=== PATIENT | male | born 1945 | race Caucasian/White ===

== ENCOUNTER → 2016-03-30 | Outpatient (CLI) | payer BC ==
[~2016-03-30] MED LIST: ASCO10003 PO; ATOR-22 PO; BNC/4025 PO; CANA1TAB PO; ERGO1CAP41 PO; EXEN1INJ3 SQ; INSDGIPEN SC; INSU1INJ2 SQ; MULT-506 PO; NVLG SQ; benicar PO
[2016-03-30 09:42] LABS: HEMATOCRIT 44.4 % (42-52); MEAN CELL VOLUME 87.1 fL (80-100); MEAN CORPUSCULAR HEMOGLOBIN 29.8 pg (25-34); MEAN CORPUSCULAR HGB CONC 34.2 g/dl (32-36); PLATELET COUNT 177 K/uL (130-400); WHITE BLOOD COUNT 6.05 K/uL (4.8-10.8)
[2016-03-30 09:52] LABS: URINE APPEARANCE CLEAR (CLEAR); URINE BILIRUBIN NEG (NEG); URINE COLOR YELLOW; URINE EPITHELIAL CELL AUTO 0-5 /lpf (0-5); URINE NITRITE NEG (NEG); URINE PH 5.5 (4.5-7.5); URINE SPECIFIC GRAVITY 1.022 (1.000-1.030); UROBILINOGEN NEG (NEG)
[2016-03-30 09:55] LABS: BLOOD UREA NITROGEN 25 mg/dl (7-18); BUN/CREATININE RATIO 17.6 (10-20); CALCIUM 9.4 mg/dl (8.5-10.1); CARBON DIOXIDE 26 mmol/L (21-32); CHLORIDE 104 mmol/L (98-107); GLUCOSE 119 mg/dl (70-99); PHOSPHORUS 2.9 mg/dl (2.5-4.9); POTASSIUM 4.3 mmol/L (3.5-5.1); SODIUM 139 mmol/L (136-145)
[2016-03-30 09:58] LABS: CHOLESTEROL/HDL RATIO 2.8
[2016-03-30 10:00] LABS: MANUAL MICROSCOPIC REQUIRED? NO; REVIEW REQ? NO
[2016-03-30 10:03] LABS: ESTIMATED AVERAGE GLUCOSE 146 mg/dl; HA1C FLAG Normal (Normal)
[2016-03-30 10:12] LABS: URINE PROTIEN/CREAT RATIO 0.1 (0-0.2); URINE TOTAL PROTEIN 11.1 mg/dl (0-11.9)
== END | disposition home or self-care (01) ==
LOC: C.LAB 08:18
PROVIDERS: ATTEND Family Medicine
DX: E11.22 Type 2 diabetes mellitus with diabetic chronic kidney disease (principal); N18.3 Chronic kidney disease, stage 3 (moderate); I12.9 Hypertensive chronic kidney disease with stage 1 through stage 4 chronic kidney disease, or unspecified chronic kidney disease; E55.9 Vitamin D deficiency, unspecified

== ENCOUNTER → 2016-07-26 | Outpatient (CLI) | payer BC ==
[~2016-07-26] MED LIST changes: -ERGO1CAP41 PO; +ERGO500011 PO
[2016-07-26 09:55] LABS: ALT/SGPT 34 U/L (12-78); AST/SGOT 25 U/L (15-37)
[2016-07-26 12:28] LABS: BASO % 0.2 %; BASO ABS # 0.01 K/uL (0-0.2); COMPLETE YES; EOS % 3.4 %; HEMATOCRIT 46.2 % (42-52); IG% 0.2 %; LYMPH % 13.6 %; LYMPH ABS # 0.84 K/uL (1.2-3.4); MEAN CELL VOLUME 90.9 fL (80-100); MEAN CORPUSCULAR HEMOGLOBIN 30.1 pg (25-34); MEAN CORPUSCULAR HGB CONC 33.1 g/dl (32-36); MEAN PLATELET VOLUME 10.1 fL (7.4-10.4); MONO % 9.2 %; NEUT % 73.4 %; PLATELET COUNT 192 K/uL (130-400); RED BLOOD COUNT 5.08 M/uL (4.7-6.1); WHITE BLOOD COUNT 6.18 K/uL (4.8-10.8)
[2016-07-26 12:42] LABS: URINE APPEARANCE CLEAR (CLEAR); URINE BILIRUBIN NEG (NEG); URINE COLOR YELLOW; URINE EPITHELIAL CELL AUTO 0-5 /lpf (0-5); URINE NITRITE NEG (NEG); URINE SPECIFIC GRAVITY 1.024 (1.000-1.030); UROBILINOGEN NEG (NEG)
[2016-07-26 12:49] LABS: MANUAL MICROSCOPIC REQUIRED? NO; REVIEW REQ? NO
[2016-07-26 13:10] LABS: URINE PROTIEN/CREAT RATIO 0.1 (0-0.2); URINE TOTAL PROTEIN 7.9 mg/dl (0-11.9)
[2016-07-26 13:38] LABS: BLOOD UREA NITROGEN 30 mg/dl (7-18); BUN/CREATININE RATIO 21.3 (10-20); CALCIUM 9.2 mg/dl (8.5-10.1); CARBON DIOXIDE 22 mmol/L (21-32); CHLORIDE 106 mmol/L (98-107); GLUCOSE 77 mg/dl (70-99); SODIUM 140 mmol/L (136-145)
[2016-07-26 13:39] LABS: PHOSPHORUS 3.2 mg/dl (2.5-4.9)
--- NOTE | 2016-08-02 06:23 | CODING QUERY MEDICAL NECESSITY ---
SUPPORTING DIAGNOSIS NEEDED A supporting diagnosis is required for the test/procedure performed on this patient in order for us to be reimbursed by the patient's insurance. Please provide a supporting diagnosis for the following test/procedure listed below next to the test name along with your signature. *If there is no additional diagnosis for this patient that would support the following test/procedure please document that below next to the test/procedure. Test(s)/Procedure(s) that require a supporting diagnosis: * VITAMIN D, 25-HYDROXY DIAGNOSIS: Provider Signature: Date: Thank you Heidi Saenz [employer] Once completed, please kindly fax back to [phone] For questions please call [phone]
== END | disposition home or self-care (01) ==
LOC: C.LAB 07:56
PROVIDERS: ATTEND Urology
DX: E11.9 Type 2 diabetes mellitus without complications (principal); R97.20 Elevated prostate specific antigen [PSA]

== ENCOUNTER → 2016-08-10 | Outpatient (CLI) | payer BC ==
[~2016-08-10] MED LIST changes: +ERGO1CAP41 PO; -ERGO500011 PO
[2016-08-10 09:49] LABS: ESTIMATED AVERAGE GLUCOSE 137 mg/dl; HA1C FLAG Normal (Normal)
== END | disposition home or self-care (01) ==
LOC: C.LAB 07:46
PROVIDERS: ATTEND Family Medicine
DX: E11.9 Type 2 diabetes mellitus without complications (principal)

== ENCOUNTER → 2016-10-27 | Outpatient (CLI) | payer BC ==
[~2016-10-27] MED LIST changes: -benicar PO
[2016-10-27 09:35] LABS: MEAN CELL VOLUME 92.3 fL (80-100); MEAN CORPUSCULAR HEMOGLOBIN 29.7 pg (25-34); MEAN CORPUSCULAR HGB CONC 32.1 g/dl (32-36); MEAN PLATELET VOLUME 9.8 fL (7.4-10.4); PLATELET COUNT 218 K/uL (130-400); RED BLOOD COUNT 5.09 M/uL (4.7-6.1); WHITE BLOOD COUNT 6.38 K/uL (4.8-10.8)
[2016-10-27 09:52] LABS: BLOOD UREA NITROGEN 23 mg/dl (7-18); BUN/CREATININE RATIO 15.4 (10-20); CALCIUM 9.3 mg/dl (8.5-10.1); CARBON DIOXIDE 32 mmol/L (21-32); CHLORIDE 103 mmol/L (98-107); GLUCOSE 62 mg/dl (70-99); PHOSPHORUS 2.7 mg/dl (2.5-4.9); POTASSIUM 4.2 mmol/L (3.5-5.1); SODIUM 138 mmol/L (136-145)
[2016-10-27 10:05] LABS: URINE APPEARANCE CLEAR (CLEAR); URINE BILIRUBIN NEG (NEG); URINE COLOR YELLOW; URINE EPITHELIAL CELL AUTO 0-5 /lpf (0-5); URINE NITRITE NEG (NEG); URINE PH 5.5 (4.5-7.5); URINE SPECIFIC GRAVITY 1.022 (1.000-1.030); UROBILINOGEN NEG (NEG)
[2016-10-27 10:13] LABS: REVIEW REQ? NO
[2016-10-27 10:14] LABS: MANUAL MICROSCOPIC REQUIRED? NO
[2016-10-27 10:22] LABS: URINE PROTIEN/CREAT RATIO 0.1 (0-0.2); URINE TOTAL PROTEIN 13.1 mg/dl (0-11.9)
== END | disposition home or self-care (01) ==
LOC: C.LAB 08:14
PROVIDERS: ATTEND Internal Medicine Nephrology
DX: I12.9 Hypertensive chronic kidney disease with stage 1 through stage 4 chronic kidney disease, or unspecified chronic kidney disease (principal); N18.2 Chronic kidney disease, stage 2 (mild); E11.22 Type 2 diabetes mellitus with diabetic chronic kidney disease; E55.9 Vitamin D deficiency, unspecified

== ENCOUNTER 2016-11-07 05:34 | Observation (INO) | payer BC, OTHER ==
[2016-10-25 09:45] VITALS: BMI 37.0
[2016-10-25 10:30] LABS: BASO % 0.5 %; BASO ABS # 0.03 K/uL (0-0.2); COMPLETE YES; EOS % 5.3 %; HEMATOCRIT 43.8 % (42-52); IG% 0.4 %; LYMPH ABS # 1.01 K/uL (1.2-3.4); MEAN CELL VOLUME 90.7 fL (80-100); MEAN CORPUSCULAR HEMOGLOBIN 31.3 pg (25-34); MEAN CORPUSCULAR HGB CONC 34.5 g/dl (32-36); MEAN PLATELET VOLUME 10.2 fL (7.4-10.4); MONO % 9.1 %; NEUT % 66.7 %; PLATELET COUNT 188 K/uL (130-400); RED BLOOD COUNT 4.83 M/uL (4.7-6.1); URINE APPEARANCE CLEAR (CLEAR); URINE BILIRUBIN NEG (NEG); URINE COLOR YELLOW; URINE NITRITE NEG (NEG); URINE PH 5.5 (4.5-7.5); URINE SPECIFIC GRAVITY 1.021 (1.000-1.030); UROBILINOGEN NEG (NEG); WHITE BLOOD COUNT 5.61 K/uL (4.8-10.8)
--- NOTE | 2016-10-25 10:31 | PAT Medication Instructions ---
Service Date Oct 25, 2016. Current Home Medication List Ascorbic Acid (Vitamin C), 1 TAB PO QAM Atorvastatin (Lipitor), 20 MG PO QAM Canagliflozin (Invokana), 1 TAB PO QAM Ergocalciferol (Vitamin D 50567 Unit), 1 TAB PO MONTHLY Exenatide (Bydureon), 1 DOSE SQ WK Insulin Aspart (Novolog Penfill), 12 UNITS SQ QAM Insulin Aspart (Novolog), 20 UNITS SQ noon Insulin Aspart (Novolog Penfill), 20 UNITS SQ QPM Insulin Glargine (Lantus Solostar), 80 UNITS SC QPM Multivitamin (Multivitamin), 1 TAB PO QAM Olmesartan/Hctz (Benicar Hct 40/25), 1 TAB PO QAM Medication Instructions For Your Scheduled Surgery - Hold the following medications the morning of surgery: Ascorbic Acid (Vitamin C), 1 TAB PO QAM Multivitamin (Multivitamin), 1 TAB PO QAM Olmesartan/Hctz (Benicar Hct 40/25), 1 TAB PO QAM Canagliflozin (Invokana), 1 TAB PO QAM Insulin Aspart (Novolog Penfill), 12 UNITS SQ QAM Insulin Aspart (Novolog), 20 UNITS SQ noon - Take the following medications the morning of surgery with a sip of water OTHERWISE NOTHING TO EAT OR DRINK AFTER MIDNIGHT: Atorvastatin (Lipitor), 20 MG PO QAM - Take the following medications as scheduled the night before surgery: Insulin Glargine (Lantus Solostar), 80 UNITS SC QPM Insulin Aspart (Novolog Penfill), 20 UNITS SQ QPM If you have any questions please call us at [phone] or [phone] or [phone]
[2016-10-25 10:33] LABS: MANUAL MICROSCOPIC REQUIRED? NO; REVIEW REQ? NO
[2016-10-25 10:39] LABS: INR 1.1 (0.9-1.1); PARTIAL THROMBOPLASTIN RATIO 1.2; PROTHROMBIN TIME (PATIENT) 11.4 SECONDS (9.0-12.0)
--- NOTE | 2016-10-25 10:56 | DIAGNOSTIC IMAGING REPORT ---
CHEST 2 VIEWS ROUTINE CLINICAL HISTORY: Preoperative chest COMPARISON STUDY: No previous studies for comparison. FINDINGS: The cardiac and mediastinal contours are normal. There is no evidence of focal pulmonary consolidation. There is no evidence of failure. No pleural effusions are visualized.[ IMPRESSION: No active disease in the chest. Electronically signed by: Rashard Moon M.D. 10/25/2016 10:55 AM Dictated Date/Time: 10/25/2016 10:55 AM
[2016-10-25 11:13] LABS: BUN/CREATININE RATIO 13.6 (10-20); CALCIUM 9.8 mg/dl (8.5-10.1); CREATININE 1.4 mg/dl (0.60-1.40); POTASSIUM 4.5 mmol/L (3.5-5.1)
--- NOTE | 2016-11-04 12:39 | HISTORY & PHYSICAL EXAMINATION ---
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 HISTORY OF PRESENT ILLNESS: Yemi is a 71-year-old male who complains of weakness in his upper extremities. 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 It is progressively getting worse. He has seen other spine surgery in the past including Dr. Ashraf and his PA. They said that he had a collapse cervical disc at C5 and C6. They recommended surgery for him. They said it would be fairly straight forward case. He is here actually for a second opinion. He was sent here by his PCP Dr. Irving Gonzales. We are here to evaluate him. PAST MEDICAL HISTORY: Positive for diabetes, heart disease, high blood pressure, kidney disease. PAST SURGICAL HISTORY: Appendectomy, 2 repaired broken legs, tonsillectomy. ALLERGIES: No known drug allergies. CURRENT MEDICATION LIST: Includes Benicar, Invokana, Lantus, and Bydureon. FAMILY MEDICAL HISTORY: Positive for heart disease, stroke, diabetes. Negative for cancer, blood clots, DVTs, PEs. SOCIAL HISTORY: He is . Never drinks. No tobacco use. Active lifestyle. REVIEW OF SYSTEMS: NEUROLOGICAL: Positive for numbness. MUSCULOSKELETAL: Positive for muscle pain. ENDOCRINE: Positive for diabetes. PHYSICAL EXAMINATION: CONSTITUTIONAL: His height is 5'5, weight 231 pounds. APPEARANCE: He is alert and oriented x3. RESPIRATORY: Equal and bilateral breath sounds. CARDIOVASCULAR: Brisk capillary refill in distal extremities. Normal S1, S2, no S3 auscultated. NEUROLOGICAL: Sensation is intact to touch. Neurovascularly intact. He does have some weakness in his right biceps compared to his left. He has diminished strength in his right marketing administrative assistant strength compared to his left. He did have appropriate reflexes bilaterally. They were symmetric. INTEGUMENTARY: No skin rashes, no swelling, no zoster infection. MUSCULOSKELETAL: Physical examination of the cervical spine shows he has good flexion and extension. No pain with palpation over the midline of the cervical spine. Negative Spurling's maneuver. No atrophy of the musculature of the upper extremities noted. DIAGNOSTIC TESTS: X-rays plain films taken do demonstrate significant spondylitic changes. We did review his MRI. It shows significant disc height collapse at C6 and C7 level of the cervical spine. There is some degenerative osteoporotic formation on the anterior as well as posterior vertebral bodies. The posterior osteophyte is actually causing some cord impingement at that level. There is some other discogenic degeneration at other levels such as C3 and C4. ASSESSMENT DIAGNOSES: 1. Cervical spondylolysis. 2. Degenerative disc disease at C6-7 level. PLAN: At this time, we are going to preop him for ACDF surgery at 2 levels. There will also be a corpectomy and fusion at the C5-C6 and C6-C7 cervical spine levels. We will use iliac bone crest graft as well. This should hopefully correct his kyphosis. So the formal operation will be corpectomy and fusion at C5-C6 of the cervical spine, possibly C6-C7 as well. We will be using iliac crest bone grafting. We will also be using anterior plate fixation. We discussed the surgery, the risks and benefits. He is in full concurment. We did provide him with an [place] cervical collar today in the office. He is to bring that with him the day of surgery. Anticipated stay 1-2 days at [facility]. We will follow him up 2 weeks postop suture removal and evaluation.
[~2016-11-07] VITALS: Ht 165.1 cm; Wt 102.7 kg
[2016-11-07] VITALS (17 sets, daily range): BP systolic 126–161; BP diastolic 75–90; PULSE 78–106; TEMP 36.2–37.3; O2SAT 93–98; Ht 165.1 cm; Wt 102.7 kg
[2016-11-07] MEDS ORDERED: LACTATED RINGER'S 1000ML 500 ML IV ONE (06:00)
[2016-11-07] MEDS ORDERED: NSS 1000ML IV SCH (06:00)
[2016-11-07] MEDS ORDERED: CEFAZOLIN 2000 MG/60 ML D5W 60 ML IV SCH (06:00)
[2016-11-07] MEDS ORDERED: GLYCOPYRROLATE INJ 0.2 MG/ML VIAL ONE (06:33)
[2016-11-07] MEDS ORDERED: PHENYLEPHRINE HCL INJ 10 MG/ML VIAL ONE (06:33)
[2016-11-07] MEDS ORDERED: SUCCINYLCHOLINE CHLORIDE 20 MG/ML 10 ML VIAL IV ONE (06:33)
[2016-11-07] MEDS ORDERED: NEOSTIGMINE METHYLSULFATE 5 MG/5 ML SYR ONE (06:33)
[2016-11-07] MEDS ORDERED: ONDANSETRON INJ 2 MG/ML 2 ML VIAL ONE (06:33)
[2016-11-07] MEDS ORDERED: LIDOCAINE HCL 2% 2 ML VIAL (20MG/ML) ONE (06:33)
[2016-11-07] MEDS ORDERED: MIDAZOLAM HCL 1 MG/ML 2ML VIAL ONE (06:33)
[2016-11-07] MEDS ORDERED: PROPOFOL IV EMULSION 10 MG/ML 20 ML VIAL IV ONE (06:33)
[2016-11-07] MEDS ORDERED: ROCURONIUM BROMIDE 10 MG/ML 5 ML VIAL IV ONE ×2 (06:33→08:35)
[2016-11-07] MEDS ORDERED: EpHEDrine SULFATE INJ 50 MG/ML AMP ONE (06:33)
[2016-11-07] MEDS ORDERED: FENTANYL CITRATE INJ 50 MCG/1 ML 2 ML VIAL ONE ×2 (06:33→09:31)
[2016-11-07] MEDS ORDERED: DEXAMETHASONE SOD INJ 4 MG/ML VIAL ONE (06:33)
[2016-11-07] MEDS ORDERED: THROMBIN FOR SOLN 20000 UNIT KIT ONE (07:03)
[2016-11-07] MEDS ORDERED: BUPIVACAINE/EPINEPHRINE 0.5% MPF 1:200,000 30 ML VIAL ONE ×2 (07:03→07:04)
[2016-11-07] MEDS ORDERED: GELATIN SPONGE SZ 100 ONE (07:03)
[2016-11-07] MEDS ORDERED: BACITRACIN 50000 UNIT VIAL ONE (07:04)
--- NOTE | 2016-11-07 07:23 | History & Physical Bridge Note ---
H&P Re-Evaluation Bridge Note: I have examined the patient, reviewed the History & Physical and in the interval since the performance of the History & Physical I have noted the following changes of clinical significance: No changes noted
[2016-11-07] MEDS ORDERED: NURSING VERBAL MED ORDER ONE ×2 (07:30→07:45)
[2016-11-07] MEDS ORDERED: ALBUT/IPRATROP 3MG/0.5MG NEB 3 ML VIAL INH STA (07:33)
[2016-11-07] MEDS ORDERED: ATROPINE SULFATE 0.1 MG/ML 5ML SYR IV PRN (09:30)
[2016-11-07] MEDS ORDERED: ONDANSETRON INJ 2 MG/ML 2 ML VIAL IV PRN ×2 (09:30→10:15)
--- NOTE | 2016-11-07 09:55 | DIAGNOSTIC IMAGING REPORT ---
Cervical SPINE, INTRAOPERATIVE FLUOROSCOPY HISTORY: C5-C6 corpectomy. FLUOROSCOPY TIME: 9 seconds. FINDINGS: Intraoperative fluoroscopy was provided for the cervical spine. 3 fluoroscopic spot images were obtained. Anterior cervical discectomy and fusion at C5-C6. The hardware appears intact. IMPRESSION: Fluoroscopy provided for a C5-C6 ACDF. Electronically signed by: Chano Valadez M.D. 11/07/2016 9:54 AM Dictated Date/Time: 11/07/2016 9:53 AM
--- NOTE | 2016-11-07 10:03 | [facility] Post Operative Brief Note ---
Immediate Operative Summary Operative Date Nov 07, 2016. Pre-Operative Diagnosis Cervical spondylolysis, degenerative disc disease at C6-C7 level Post-Operative Diagnosis Cervical spondylolysis, degenerative disc disease at C6-C7 level Procedure(s) Performed C5-C6 Anterior Cervical Discectomy and Fusion; C5-C6 Corpectomy with Left Iliac Crest Bone Graft Surgeon Dr. Rene Nunn Clerk Specialist Surgeon(s) Jhon Davis PA-C Estimated Blood Loss 50 mL Findings cord compression Specimens No pathology specimens per surgeon Complication(s) None Disposition Recovery Room / PACU
[2016-11-07] MEDS ORDERED: OXYCODONE HCL IR 5 MG TAB (IMMEDIATE RELEASE) PO PRN (10:15)
[2016-11-07] MEDS ORDERED: LORAZEPAM INJ 0.5 MG in SYRINGE 0.75 ML IV PRN (10:15)
[2016-11-07] MEDS ORDERED: HYDROmorphone INJ 0.5 MG/0.5 ML SYR IV PRN (10:15)
[2016-11-07] MEDS ORDERED: NALOXONE HCL 0.4 MG/1 ML VIAL/CARP IV PRN (10:15)
[2016-11-07] MEDS ORDERED: MAGNESIUM HYDROXIDE SUSP 30 ML UDC PO PRN (10:15)
[2016-11-07] MEDS ORDERED: RACEPINEPHRINE 2.25% NEBU SOLN 0.5 ML VIAL INH PRN (10:15)
[2016-11-07] MEDS ORDERED: DEXAMETHASONE INJ 8 MG in SYRINGE 0 ML IV PRN (10:15)
[2016-11-07] MEDS: HYDROmorphone INJ 2 MG/ML SYR/VIAL IV PRN ×4 (10:31→10:46)
--- NOTE | 2016-11-07 11:09 | OPERATIVE REPORT ---
DATE OF OPERATION: 11/07/2016 PREOPERATIVE DIAGNOSIS: Kyphosis and spinal cord compression, C5-C6 cervical spine. POSTOPERATIVE DIAGNOSIS: Kyphosis and spinal cord compression, C5-C6 cervical spine. PROCEDURE: Included anterior cervical approach, Ross-Biggs approach to the cervical spine, a corpectomy taking off approximately half of the vertebrae of 5 and half of the vertebrae of 6, decompression of the spinal cord, iliac crest structural autograft, anterior plate fixation C5-C6 cervical. SURGEON: Rene Nunn DO DIRECTOR MUSEUM OR ZOO: Jhon Davis PA-C. COMPLICATIONS: No apparent complications. TOTAL BLOOD LOSS: Less than 50 mL. ANESTHETIC: General intubated. DESCRIPTION OF PROCEDURE: The patient was taken to the operating room and general intubated anesthetic provided to the patient. Mar catheter administered. Antibiotics provided to the patient, placed supine on the operative table, prepped and draped sterile. A formal timeout was obtained intake. We made a transverse skin incision over C5-C6 interval dissecting the soft tissue in the same plane. We came down on the C5-C6 area. We did a discectomy. It was interesting in that there really was no disc remaining. There was a small amount of disc particles of the interval, but that was about all, it was actually quite unstable. We used the bur up 4 to 5 mm down, 4 to 5 mm of the vertebrae. We did a formal decompression and discectomy using curettes, pituitaries and [place] rongeurs. I was pleased with the decompression. We also completed the foraminotomies. We irrigated and waited. We went to the left iliac crest, made a skin incision and fascial incision. It was fairly difficult because of the moderate obesity of the patient, was able to harvest an excellent autograft. It measured 10 superior to inferior measured approximately 14 mm across and approximately 15 mm in depth. This was countersunk and the corpectomy area at C5-C6 giving him excellent stability. We then put a plate on the anterior aspect of the cervical spine. 18-20 mm in length but the [employer] locked proximally and distally. The fit was anatomic. We irrigated and closed over a [place] drain in layers. The iliac irrigated and closed as well. Sterile dressings applied. The collar applied. The patient is extubated to PACU stable. No apparent interoperative complications. Sponge and needle count correct at the close. I attest to the content of the Intraoperative Record and any orders documented therein. Any exception s are noted below.
[2016-11-07] MEDS ORDERED: IV FLUIDS COMPLETED PRN (11:45)
--- NOTE | 2016-11-07 11:55 | Anesthesiology Progress Note ---
Anesthesia Post Op Note Date & Time Nov 07, 2016 at 11:55 Vital Signs Pain Intensity: 2 Vital Signs Past 12 Hours Date Time Temp Pulse Resp B/P (MAP) Pulse Ox O2 Delivery O2 Flow Rate FiO2 11/07/16 11:40 88 15 146/84 99 Nasal Cannula 4 11/07/16 11:25 86 20 148/89 100 Nasal Cannula 4 11/07/16 11:15 85 18 156/87 100 Nasal Cannula 4 11/07/16 11:05 36.8 85 18 156/86 100 Nasal Cannula 4 11/07/16 10:55 81 16 147/78 100 Nasal Cannula 4 11/07/16 10:45 79 14 144/78 99 Nasal Cannula 4 11/07/16 10:35 78 14 143/90 100 Nasal Cannula 4 11/07/16 10:26 83 20 146/81 100 Oxymask 10 11/07/16 10:16 79 19 144/90 100 Oxymask 10 11/07/16 10:11 36.1 86 18 133/77 99 Oxymask 10 11/07/16 06:00 36.3 85 20 145/89 97 Room Air Notes Mental Status: alert / awake / arousable, participated in evaluation Pt Amnestic to Procedure: Yes Nausea / Vomiting: adequately controlled Pain: adequately controlled Airway Patency, RR, SpO2: stable & adequate BP & HR: stable & adequate Hydration State: stable & adequate Anesthetic Complications: no major complications apparent
[2016-11-07] MEDS ORDERED: HydrALAZINE HCL 20 MG/ML VIAL IV PRN (12:15)
[2016-11-07] MEDS ORDERED: GLUCOSE 40% GEL 15 GM TUBE PO PRN (12:30)
[2016-11-07] MEDS ORDERED: GLUCAGON FOR INJ 1 MG VIAL SQ PRN (12:30)
[2016-11-07] MEDS ORDERED: HYDROmorphone INJ 1 MG/ML SYR IV PRN (12:30)
[2016-11-07] MEDS ORDERED: DEXTROSE 50% 50 ML SYR IV PRN (12:30)
[2016-11-07] MEDS ORDERED: GLUCOSE 10 TABS/TUBE PO PRN (12:30)
[2016-11-07] MEDS: SODIUM CHLORIDE 0.9% 1000ML 1,000 ML IV SCH ×2 (13:33→23:16)
[2016-11-07] MEDS: DEXAMETHASONE INJ 6 MG in SYRINGE 0 ML IV SCH ×2 (13:46→21:36)
[2016-11-07] MEDS: CEFAZOLIN IV 1,000 MG in DEXTROSE 5% 50ML 50 ML IV SCH ×2 (16:17→23:28)
[2016-11-07] MEDS: INSULIN ASPART 100 UNITS/ML 3 ML PEN SC SCH ×2 (18:01→21:33)
[2016-11-07] MEDS ORDERED: LANTUS PER UNIT CHARGE SC SCH (21:00)
[2016-11-07] MEDS ORDERED: INSULIN GLARGINE SOLOSTAR 100 UNITS/ML 3 ML PEN SC SCH (21:00)
[2016-11-07] MEDS ORDERED: INSULIN ASPART 100 UNITS/ML 3 ML PEN SQ SCH (21:00)
--- NOTE | 2016-11-07 21:06 | CONSULTATION REPORT ---
DATE OF CONSULTATION: 11/07/2016 REASON FOR MEDICAL CONSULTATION: Hypertensive and diabetic management in the perioperative period after anterior cervical discectomy and fusion at C5 through C7 by Dr. Nunn. HISTORY OF PRESENT ILLNESS: The patient was seen in his room in a postoperative state. He had a rigid C-collar in place. He had a bandage on his anterior neck with a little bit of serosanguineous stain on it. The patient was awake and alert. He said his right arm paresthetic feelings have resolved almost spontaneously postoperatively. The patient did already self. One half dose Lantus this morning and he has been n.p.o. since last evening. He has no other complaints or problems. He is doing quite well. He states that his outpatient physician was going to reduce his antihypertensives from the Benicar 40/25 mg to just Benicar 40 mg and he will plan on doing that when he returns home. PAST MEDICAL HISTORY: For insulin requiring diabetes, hypertension, chronic kidney disease stage III, previous appendectomy, previous leg fractures, previous tonsillectomy. MEDICATIONS: Insulin aspartate 12 units in the morning, 20 units at lunch, 20 units at dinner. Lantus 80 units in the p.m., Benicar HCT 40/25 mg daily, vitamin D daily, multivite once a day, exenatide 2 mg once a week, Invokana 100 mg a day, Lipitor 20 mg a day, and ascorbic acid 1000 a day. FAMILY HISTORY: Positive for heart disease, stroke, and diabetes. REVIEW OF SYSTEMS: Ten systems were reviewed and are negative unless listed in the surgeon's H&P including arm pain, now he has some anterior neck pain postoperatively. PHYSICAL EXAMINATION: GENERAL: He is a pleasant gentleman. He is in no distress with the exception of having something to eat and drink. He is in a rigid C-collar VITAL SIGNS: Temperature 36.8, pulse 88, respirations 15, blood pressure 146/84, O2 saturations 99% on 4 liters. HEENT: PERRL, EOMI. NEUROLOGICAL: He is awake, alert, and appropriate. Cranial nerves II-XII are intact. He has equal symmetrical technology intern strength and intrinsic hand muscle strength and he has good shoulder girdle strength. HEART: Regular without murmurs, clicks, rubs, or gallops. LUNGS: Clear without wheezes or crackles. Good air movement. ABDOMEN: With hypoactive bowel sounds, soft, nontender, nondistended. LOWER EXTREMITIES: Without cyanosis, clubbing, or edema. SKIN: Without lesions, growths, bruises, or bleeding. LABORATORY DATA: Preoperatively showed BUN and creatinine of 19 and 1.4. Glucoses have been less than 142. Hemoglobin and hematocrit preoperatively is 15 and 43. ASSESSMENT: This is a 71-year-old insulin requiring diabetic male who is status post anterior cervical discectomy and fusion. PLAN: 1. For the patient's diabetes, we will make his Lantus 40 b.i.d. We will put him on a sliding scale and hold his standard insulin dosing. We will continue on his Invokana. 2. For his hypertension, we will maintain his Benicar with hydralazine backup. 3. For his dyslipidemia or secondary risk prevention, we will maintain his Lipitor 20 mg. 4. DVT prevention is mechanical means at this time due to the cervical spine surgery. KIA
[2016-11-07] MEDS: DOCUSATE SODIUM 100 MG CAP PO SCH (21:28)
[2016-11-07] MEDS: INSULIN GLARGINE SOLOSTAR 100 UNITS/ML 3 ML PEN SC SCH (21:32)
[2016-11-08] VITALS (14 sets, daily range): BP systolic 126–165; BP diastolic 76–93; PULSE 86–103; TEMP 36.5–37.3; O2SAT 92–96
[2016-11-08] MEDS: DEXAMETHASONE INJ 6 MG in SYRINGE 0 ML IV SCH (06:32)
[2016-11-08] MEDS ORDERED: TAMSULOSIN HCL 0.4 MG CAP PO ONE (07:15)
--- NOTE | 2016-11-08 07:16 | Discharge Instructions ---
Discharge Instructions Date of Service Nov 08, 2016. Admission Reason for Admission: spinal cord compression Discharge Discharge Diagnosis / Problem: same Discharge Goals Goal(s): Improve function Activity Recommendations Activity Limitations: as noted below Lifting Limitations: until after follow-up appointment Exercise/Sports Limitations: until after follow-up appointment May Resume Sexual Activity: after follow-up appointment Shower/Bathe: keep incision dry home, take it easy . Instructions / Follow-Up Instructions / Follow-Up MEDICATIONS: Please take your prescriptions as instructed at your pre-op appointment. SPECIAL CARE: The following information is intended to answer some of the common questions and concerns regarding your surgery. Each patient is an individual and receives individual counselling throughout the course of treatment, from diagnosis to surgery all the way through recovery. What follows is not an exhaustive list, but should be a useful guide to some of the common questions and concerns patients have regarding their surgeries. These are not provided to keep you from calling us; rather, they give you something accurate and concrete to reference as you recover from your procedure. If you need us, we are available to you. As always, if you are not sure about something, call us at [phone]. MEDICAL EMERGENCIES: For these conditions, call 911 or go to your local hospital-based Emergency Department - not [facility] or equivalent. * Paralysis * Severe chest pain or difficulty breathing * Swelling or redness of either leg Spine procedures can be rather complex and though complications are rare, they do occur. In such cases, effective advice regarding emergency situations cannot always be addressed over the telephone. You may be referred to the emergency department for more effective management of your problem. Activity Limitations: It is important to give your body time to heal, so please limit your activities : * In general, don't do anything that moves your spine too much. You should avoid contact sports, twisting or heavy lifting while you recover. * 5-10 pounds is all you should attempt to lift. * You should not plan on driving for approximately 3 weeks and you should avoid traveling more than 30-45 minutes at a time. Longer trips should be broken down with walking breaks spaced appropriately. * Physical therapy is not usually required. * Walking and good posture practices will help you recover and regain your function. * Avoid straining or sudden changes in position. * In general, the goal is to take it easy and recover. Don't cause any new problems. Just relax. Showers: * Do not take a bath, use a Jacuzzi or hot tub or otherwise submerge your incision. * It is usually safe to take a shower 4-5 days after your surgery. * Your incision does not require any special creams or ointments. * Simply clean it with soap and water, dry and re-dress with a clean bandage afterwards. Incision: * Keep incision clean, dry and protected until your first follow-up appointment. * Some amount of drainage and redness is normal. Any drainage should be fairly clear and not have a foul odor. * If you feel anything is wrong or you have excessive drainage, please call us. * Your stitches and bill will be removed 10-14 days after your surgery. At the time of your first post-op visit. * Neck surgeries are typically closed with a suture underneath the skin. The steri-strips over the incision should be maintained until we see you in the office. Bracing: * You may be provided with a back or neck brace to encourage good posture and prevent injury. It will remind you not to do too much as you heal and will alert others to the fact that you have had a surgery. * Back braces may be removed for showers and when you are resting at home. They must be worn when you are walking around for any period of time or for travel. * For neck surgery, you will likely be provided with two cervical collars. The soft collar ([place] or foam rubber) is worn most commonly throughout the day and while sleeping. The plastic collar (provided at the hospital) is for showering/bathing. * Except while eating, collars should remain in place. More specifically, bracing is provided for a purpose and should be worn. * Please obtain your brace or collars prior to your operation and bring them to the hospital with you on the day of surgery. * You should also bring your collars to your post-op appointment with Dr. Nunn. You should always take good care of your body and practice healthy habits, especially following surgery. You should: * Follow your doctor's treatment plan * Sit and stand properly with good posture (ears over shoulders, shoulders over hips) Don't slouch * Learn to lift correctly * Exercise regularly (low-impact aerobic exercise is especially good, but check with your doctor first) * Generally, be up and walking for 5-10 minutes at a time at least 3-4 times per day from the day you get home * Increasing walking to tolerance until you can walk for 20-30 minutes at a time * Attain and maintain a healthy body weight * Eat healthy foods ( a well-balanced, low-fat diet rich in fruits and vegetables) and get enough calcium * Avoid excessive use of alcohol When to call our office - If you notice any of the following: * Increased pain not relieve by pain medicine * Fevers greater then 100 degrees F, chills or flu symptoms * Increased redness around incision * Drainage from the incision that is not clear * Any foul smelling drainage * Swelling or fluid collection beneath the skin Miscellaneous: * In the hospital, you may be given a walker or cane for support while walking. These are temporary needs and are intended to prevent injuries due to falls. You may discontinue them when you feel strong and steady enough on your feet. * Sleep in a comfortable position. We find that many patients find a lounge chair or recliner with several pillows to be beneficial in the early post-operative period. * The support stockings should be used for 7-10 days and may be discontinued when you are back to walking more and conducting usual household activities. No problem is insignificant. We are here to help you and get you well. Contact us at [phone]. Definitions: Foraminotomy: If part of the disc or a bone spur (osteophyte) is pressing on a nerve as it leaves the vertebra (through an exit called the foramen), a foraminotomy may be done. Otomy means "to make an opening." A foraminotomy is making the opening of the foramen larger, so the nerve can exit without being compressed. Laminotomy: Similar to the foraminotomy, a laminotomy makes a larger opening, this time in your bony plate protecting your spinal canal and spinal cord (the lamina). The lamina may be pressing on your nerve, so the surgeon may make more room for the nerves using a laminotomy. Laminectomy: Sometimes, a laminotomy is not sufficient. The surgeon may need to remove all or part of the lamina. This procedure is called a laminectomy. This can often be done at many levels without any harmful effects. Current Hospital Diet Patient's current hospital diet: Diabetes Type 2 Diet, Full Liquid Diet Discharge Diet Recommended Diet: Diabetes Type 2 Diet Procedures Procedures Performed: C5-C6 Anterior Cervical Discectomy and Fusion; C5-C6 Corpectomy with Left Iliac Crest Bone Graft Pending Studies Studies pending at discharge: no Laboratory Results Hemoglobin A1c Test 11/08/16 06:13 Range/Units Medical Emergencies . Who to Call and When: Medical Emergencies: If at any time you feel your situation is an emergency, please call 911 immediately. . Non-Emergent Contact Non-Emergency issues call your: Surgeon . "Provider Documentation" section prepared by Rene Nunn. . VTE Core Measure Inpt VTE Proph given/why not?: Treatment not indicated
[2016-11-08] MEDS: CEFAZOLIN IV 1,000 MG in DEXTROSE 5% 50ML 50 ML IV SCH (07:32)
[2016-11-08] MEDS: DOCUSATE SODIUM 100 MG CAP PO SCH (08:11)
[2016-11-08] MEDS: INSULIN ASPART 100 UNITS/ML 3 ML PEN SC SCH ×2 (08:20→12:45)
[2016-11-08] MEDS: INSULIN GLARGINE SOLOSTAR 100 UNITS/ML 3 ML PEN SC SCH (08:21)
--- NOTE | 2016-11-08 08:29 | DISCHARGE SUMMARY ---
He is improved. He is stable. He is alert, oriented this morning. He is having trouble voiding. He has no chest pain, shortness of breath. He is afebrile. Blood pressure is stable. No distention. ASSESSMENT: Status post major spinal cord surgery for corpectomy cervical spine, C5-C6. He also had an iliac crest graft. DISPOSITION: Will get him up and ambulatory today, which he has done. I placed him back on his Flomax; hopefully that will help his urinary output. Tentatively discharged home later on today in improved stable condition. He has prescriptions and orders and recommendations.
[2016-11-08] MEDS ORDERED: ATORVASTATIN 20 MG TAB PO SCH (09:00)
[2016-11-08] MEDS ORDERED: HYDROCHLOROTHIAZIDE 25 MG TAB PO SCH (09:00)
[2016-11-08] MEDS ORDERED: NON-FORMULARY MEDICATION (Olmesartan/Hctz (Benicar Hct 40/25) 1 TAB) PO SCH (09:00)
[2016-11-08] MEDS ORDERED: MULTIVITAMIN TAB PO SCH (09:00)
[2016-11-08] MEDS ORDERED: INSULIN ASPART 100 UNITS/ML 3 ML PEN SQ SCH (09:00)
[2016-11-08] MEDS ORDERED: ASCORBIC ACID 500 MG TAB PO SCH (09:00)
[2016-11-08] MEDS ORDERED: OLMESARTAN MEDOXOMIL 40 MG TAB PO SCH (09:00)
[2016-11-09] MEDS ORDERED: BISACODYL 10 MG SUPP PR PRN (06:00)
[2016-11-09] MEDS ORDERED: BISACODYL 5 MG TABEC PO PRN (06:00)
== END 2016-11-08 17:25 | disposition home or self-care (01) ==
LOC: C.ACU 05:34 → C.3E 10:07 → ENRESERV 11:27
PROVIDERS: ADMIT Orthopaedic Surgery Orthopaedic Surgery of the Spine; ATTEND Orthopaedic Surgery Orthopaedic Surgery of the Spine
DX: M40.209 Unspecified kyphosis, site unspecified (principal); M43.02 Spondylolysis, cervical region; M50.323 Other cervical disc degeneration at C6-C7 level; E11.9 Type 2 diabetes mellitus without complications; N18.3 Chronic kidney disease, stage 3 (moderate); I12.9 Hypertensive chronic kidney disease with stage 1 through stage 4 chronic kidney disease, or unspecified chronic kidney disease; E66.9 Obesity, unspecified; Z90.89 Acquired absence of other organs; Z79.4 Long term (current) use of insulin; Z79.899 Other long term (current) drug therapy; Z83.3 Family history of diabetes mellitus; Z82.3 Family history of stroke; Z82.49 Family history of ischemic heart disease and other diseases of the circulatory system

== ENCOUNTER → 2016-12-05 | Outpatient (CLI) | payer BC ==
[~2016-12-05] MED LIST changes: -ERGO1CAP41 PO; +ERGO500011 PO
[2016-12-05 09:52] LABS: HEMATOCRIT 44.8 % (42-52); MEAN CELL VOLUME 92.8 fL (80-100); MEAN CORPUSCULAR HEMOGLOBIN 30.6 pg (25-34); MEAN PLATELET VOLUME 9.8 fL (7.4-10.4); PLATELET COUNT 176 K/uL (130-400); RED BLOOD COUNT 4.83 M/uL (4.7-6.1); WHITE BLOOD COUNT 6.32 K/uL (4.8-10.8)
[2016-12-05 09:53] LABS: URINE APPEARANCE CLEAR (CLEAR); URINE BILIRUBIN NEG (NEG); URINE COLOR YELLOW; URINE EPITHELIAL CELL AUTO 0-5 /lpf (0-5); URINE NITRITE NEG (NEG); URINE PH 5.5 (4.5-7.5); URINE SPECIFIC GRAVITY 1.024 (1.000-1.030); UROBILINOGEN NEG (NEG)
[2016-12-05 09:59] LABS: MANUAL MICROSCOPIC REQUIRED? NO; REVIEW REQ? NO
[2016-12-05 10:11] LABS: BLOOD UREA NITROGEN 20 mg/dl (7-18); BUN/CREATININE RATIO 15.8 (10-20); CALCIUM 9.3 mg/dl (8.5-10.1); CARBON DIOXIDE 28 mmol/L (21-32); CHLORIDE 105 mmol/L (98-107); CREATININE 1.29 mg/dl (0.60-1.40); GLUCOSE 51 mg/dl (70-99); PHOSPHORUS 2.5 mg/dl (2.5-4.9); POTASSIUM 4.1 mmol/L (3.5-5.1); SODIUM 139 mmol/L (136-145)
[2016-12-05 10:44] LABS: URINE PROTIEN/CREAT RATIO 0.1 (0-0.2); URINE TOTAL PROTEIN 8.3 mg/dl (0-11.9)
== END | disposition home or self-care (01) ==
LOC: C.LAB 07:27
PROVIDERS: ATTEND Internal Medicine Nephrology
DX: I12.9 Hypertensive chronic kidney disease with stage 1 through stage 4 chronic kidney disease, or unspecified chronic kidney disease (principal); N18.2 Chronic kidney disease, stage 2 (mild); N40.0 Benign prostatic hyperplasia without lower urinary tract symptoms; E55.9 Vitamin D deficiency, unspecified

== ENCOUNTER → 2016-12-19 | Outpatient (CLI) | payer BC, OTHER ==
[~2016-12-19] MED LIST changes: +GADAVIST IV PRN
--- NOTE | 2016-12-19 10:52 | DIAGNOSTIC IMAGING REPORT ---
PROSTATE MRI COMBO CLINICAL HISTORY: 71 years-old Male presenting with R97.20 PSA elevation. PSA 4.3 ng/mL. TECHNIQUE: Multisequence, multiplanar MR imaging of the prostate was performed before and after the administration of intravenous contrast. Additional postprocessing was performed on a separate [employer] workstation by the radiologist for 3-D volumetric segmentation of the prostate and contouring of region(s) of interest (ALYSA) for targeting. IV contrast: 10 cc of Gadavist. COMPARISON: None. FINDINGS: Prostate: The prostate measures 6.3 cm (SetgoaCAD prostate boundary segmentation volume 113 mL). Moderate changes of benign prostatic hyperplasia. Precontrast T1 weighted imaging demonstrates no evidence of intrinsic T1 hyperintensity to suggest hemorrhage. Seminal vesicles normal. No suspicious lesion is apparent in the transition or peripheral zones. Bladder: Normal. Bowel: Visualized portion of the rectum normal. Peritoneum: No free fluid in the pelvis. Lymph nodes: No lymphadenopathy in the visualized portion of the pelvis. Vasculature: Iliac vessels patent. Osseous structures: Normal bone marrow signal intensity. Miscellaneous: Small multiseptated cystic structure adjacent to the right iliopsoas muscle which measures 1.7 cm. This may represent a ganglion cyst versus a paralabral cyst. IMPRESSION: 1. No suspicious lesions. 2. Benign prostatic hyperplasia. Electronically signed by: Chano Valadez M.D. 12/19/2016 10:51 AM Dictated Date/Time: 12/19/2016 10:46 AM
== END | disposition home or self-care (01) ==
LOC: C.MRIBC 08:44
PROVIDERS: ATTEND Urology
DX: R97.20 Elevated prostate specific antigen [PSA] (principal)

== ENCOUNTER → 2017-01-31 | Outpatient (CLI) | payer BC ==
[~2017-01-31] MED LIST changes: -GADAVIST IV PRN
[2017-01-31 10:13] LABS: BLOOD UREA NITROGEN 23 mg/dl (7-18); BUN/CREATININE RATIO 16.3 (10-20); CREATININE 1.43 mg/dl (0.60-1.40)
== END | disposition home or self-care (01) ==
LOC: C.LAB 08:52
PROVIDERS: ATTEND Urology
DX: R97.20 Elevated prostate specific antigen [PSA] (principal)

== ENCOUNTER → 2017-02-08 | Outpatient (CLI) | payer BC | END | disposition home or self-care (01) | LOC: C.LAB 10:16 | PROVIDERS: ATTEND Urology | DX: R97.20 Elevated prostate specific antigen [PSA] (principal) ==

== ENCOUNTER → 2017-03-27 | Outpatient (CLI) | payer BC ==
[2017-03-27 10:28] LABS: HEMATOCRIT 44.5 % (42-52); HEMOGLOBIN 15.3 g/dL (14.0-18.0); MEAN CELL VOLUME 87.9 fL (80-100); MEAN CORPUSCULAR HEMOGLOBIN 30.2 pg (25-34); MEAN CORPUSCULAR HGB CONC 34.4 g/dl (32-36); PLATELET COUNT 163 K/uL (130-400)
[2017-03-27 10:33] LABS: HEMOGLOBIN A1C 5.7 % (4.5-5.6)
[2017-03-27 10:46] LABS: ALT/SGPT 33 U/L (12-78); AST/SGOT 18 U/L (15-37); BLOOD UREA NITROGEN 22 mg/dl (7-18); CALCIUM 8.8 mg/dl (8.5-10.1); CARBON DIOXIDE 23 mmol/L (21-32); CREATININE 1.31 mg/dl (0.60-1.40); GLUCOSE 75 mg/dl (70-99); SODIUM 137 mmol/L (136-145)
[2017-03-27 10:55] LABS: BLOOD UREA NITROGEN 22 mg/dl (7-18)
[2017-03-27 10:57] LABS: CHOLESTEROL 116 mg/dl (0-200); LDL CHOLESTEROL CALCULATED 29 mg/dl; PHOSPHORUS 3.1 mg/dl (2.5-4.9)
== END | disposition home or self-care (01) ==
LOC: C.LAB 08:53
PROVIDERS: ATTEND Urology
DX: E11.9 Type 2 diabetes mellitus without complications (principal); I10 Essential (primary) hypertension; N18.3 Chronic kidney disease, stage 3 (moderate); E78.2 Mixed hyperlipidemia; E04.1 Nontoxic single thyroid nodule

== ENCOUNTER → 2017-04-10 | Outpatient (CLI) | payer BC ==
[2017-04-10 09:32] LABS: HEMATOCRIT 45.3 % (42-52); HEMOGLOBIN 15.7 g/dL (14.0-18.0); MEAN CELL VOLUME 87.6 fL (80-100); MEAN CORPUSCULAR HEMOGLOBIN 30.4 pg (25-34); MEAN CORPUSCULAR HGB CONC 34.7 g/dl (32-36); MEAN PLATELET VOLUME 9.5 fL (7.4-10.4); PLATELET COUNT 183 K/uL (130-400); RED CELL DISTRIBUTION WIDTH CV 13.7 % (11.5-14.5); RED CELL DISTRIBUTION WIDTH SD 43.5 fL (36.4-46.3); WHITE BLOOD COUNT 6.07 K/uL (4.8-10.8)
[2017-04-10 10:20] LABS: ALBUMIN 3.7 gm/dl (3.4-5.0); BLOOD UREA NITROGEN 17 mg/dl (7-18); CALCIUM 9.5 mg/dl (8.5-10.1); CARBON DIOXIDE 26 mmol/L (21-32); CREATININE 1.28 mg/dl (0.60-1.40); GLUCOSE 86 mg/dl (70-99); PHOSPHORUS 3.1 mg/dl (2.5-4.9); POTASSIUM 4.2 mmol/L (3.5-5.1); SODIUM 137 mmol/L (136-145)
== END | disposition home or self-care (01) ==
LOC: C.LAB 08:29
PROVIDERS: ATTEND Internal Medicine Nephrology
DX: N18.2 Chronic kidney disease, stage 2 (mild) (principal); I12.9 Hypertensive chronic kidney disease with stage 1 through stage 4 chronic kidney disease, or unspecified chronic kidney disease; E55.9 Vitamin D deficiency, unspecified

== ENCOUNTER 2021-01-15 00:33 | Observation (INO) ==
[2021-01-15] MEDS ORDERED: DEXTROSE 50% 50 ML SYRINGE IV STA (03:52)
[2021-01-15 03:59] LABS: Basophils # (auto) 0.02 K/uL (0-0.2); Basophils % (auto) 0.3 %; Eosinophils # (auto) 0.24 K/uL (0-0.5); Eosinophils % (auto) 4.2 %; Hematocrit (blood only) 45.6 % (42-52); Hemoglobin 15.3 g/dL (14.0-18.0); Immature Granulocytes # (auto) 0.01 K/uL (0.00-0.02); Immature Granulocytes % (auto) 0.2 %; Lymphocytes # (auto) 1.48 K/uL (1.2-3.4); Lymphocytes % (auto) 25.6 %; Mean Corpuscular Hemoglobin 31.2 pg (25-34); Mean Corpuscular Hgb Conc 33.6 g/dL (32-36); Mean Corpuscular Volume 92.9 fL (80-100); Mean Platelet Volume 10.3 fL (7.4-10.4); Monocytes # (auto) 0.49 K/uL (0.11-0.59); Monocytes % (auto) 8.5 %; Neutrophils # (auto) 3.53 K/uL (1.4-6.5); Neutrophils % (auto) 61.2 %; Platelet Count 181 K/uL (130-400); RDW Coefficient of Variation 13.9 % (11.5-14.5); RDW Standard Deviation 46.8 fL (36.4-46.3); Red Blood Count 4.91 M/uL (4.7-6.1); White Blood Count 5.77 K/uL (4.8-10.8)
[2021-01-15 04:13] LABS: Alanine Aminotransferase 31 (12-78); Albumin Level 3.6 gm/dl (3.4-5.0); Aspartate Aminotransferase 19 U/L (15-37); BUN Creatinine Ratio 19.4 (10-20); Blood Urea Nitrogen 24 mg/dl (7-18); Calcium 9.7 mg/dl (8.5-10.1); Carbon Dioxide 29 mmol/L (21-32); Chloride 106 mmol/L (98-107); Est GFR (Non-African American) 56.1 ml/min; Glucose 108 mg/dl (70-99); Potassium 3.9 mmol/L (3.5-5.1); Sodium 139 mmol/L (136-145)
[2021-01-15 04:16] LABS: Alkaline Phosphatase 81 U/L (45-117); Bilirubin,Total 0.5 mg/dl (0.2-1); Globulin 3.7 gm/dl (2.5-4.0); Total Protein 7.3 gm/dl (6.4-8.2)
[2021-01-15] MEDS ORDERED: ACETAMINOPHEN 325 MG TAB PO PRN (07:45)
[2021-01-15] MEDS ORDERED: NITROGLYCERIN SL 0.4 MG/TAB TAB SL PRN (07:45)
[2021-01-15] MEDS ORDERED: D5W AND NSS 1,000 ML IV SCH (07:45)
[2021-01-15] MEDS: ASCORBIC ACID 500 MG TAB PO SCH (09:33)
[2021-01-15] MEDS: FINASTERIDE 5 MG TAB PO SCH (09:33)
[2021-01-15] MEDS: ASPIRIN 81 MG ECTAB PO SCH (09:33)
[2021-01-15] MEDS: ATORVASTATIN 40 MG TAB PO SCH (09:33)
[2021-01-15] MEDS: LOSARTAN POTASSIUM 50 MG TAB PO SCH (09:33)
[2021-01-15] MEDS: MULTIVITAMIN TAB PO SCH (09:34)
[2021-01-15] MEDS: INSULIN ASPART PER UNIT SC SCH ×4 (09:43→21:00)
--- NOTE | 2021-01-15 10:02 | History and Physical Report ---
DATE OF ADMISSION: 01/15/2021 CHIEF COMPLAINT: Accidental overdose of insulin. HISTORY OF PRESENT ILLNESS: A 75-year-old male with past medical history significant for type 2 diabetes, hyperlipidemia, chronic kidney disease stage III, hypertension, obesity, BPH, presented with accidental overdose of insulin. The patient is on NovoLog 12 units with breakfast, 20 units with lunch and 22 units with supper and on Lantus 56 units before going to sleep. Accidentally instead of Lantus, he took NovoLog 56 units and when he was going to sleep, he remembered it and he came to the hospital. His sugars were in 55; even after orange juice and making him eat, they were still in the 50s, so he was given an amp of D50. Currently, his sugars are 122. The patient says generally with hypoglycemia, he feels weird, but today he has no symptoms, no dizziness, no shakiness, no palpitations. Currently, resting comfortably and hemodynamically stable. Denies any headache. No blurred visions, no earache, no runny nose, no sore throat, no cough, no fevers, no nausea, no chest pain, no shortness of breath, no abdominal pain. Normal bowel and bladder movements. ALLERGIES: No known drug allergies. PAST MEDICAL HISTORY: As mentioned above. PAST SURGICAL HISTORY: Colonoscopy, C5-C6 fixation with cord decompression, bilateral lasering of secondary cataract, appendectomy, tonsillectomy, adenoidectomy, revision of the ankle joint bilaterally, revision of scrotum, umbilical hernia repair. MEDICATIONS: The patient is on ascorbic acid 1 gram p.o. daily, aspirin 81 mg p.o. daily, atorvastatin 40 mg p.o. daily, Invokana 100 mg p.o. a.m., Trulicity 0.75 mg subcutaneously weekly, vitamin D 1250 mcg p.o. monthly, finasteride 5 mg p.o. daily, NovoLog 12 units subcutaneously a.m., 20 units subcutaneously at lunch and 22 units subcutaneously p.m., Lantus 56 units subcutaneously p.m., losartan 50 mg p.o. daily, metronidazole topical p.r.n., multivitamin 1 tablet p.o. daily, Flomax 0.4 mg p.o. at bedtime. FAMILY HISTORY: Significant for father had diabetes, paternal grandfather of [place]. SOCIAL HISTORY: Lives alone. No smoking. Alcohol rarely. No drug use. REVIEW OF SYSTEMS: As per HPI. Rest of the review of systems is negative. PHYSICAL EXAMINATION: GENERAL: The patient is obese, not in acute distress. VITAL SIGNS: Temperature 36.5, pulse 105, respirations are 19, blood pressure 156/68, oxygen 95% on room air. HEENT: Pupils equal, round and reactive to light. Oral mucosa moist. NECK: No JVD, no neck masses. CARDIOVASCULAR: S1 and S2 heard. Regular rate and rhythm. No murmur, no gallop. RESPIRATORY SYSTEM: Normal AP diameter. No accessory muscle use. No wheezing, no crackles. ABDOMEN: Soft, bowel sounds present, nontender, no distention. CENTRAL NERVOUS SYSTEM: Cranial nerves II-XII grossly intact, nonfocal. EXTREMITIES: No edema, no erythema. LABORATORY DATA: WBC 5.7, hemoglobin 15.3, hematocrit 45.6, platelets 181. Sodium 139, potassium 3.9, chloride 106, bicarbonate 29, BUN 24, creatinine 1.2, serum glucose 108, calcium 9.7, total bilirubin 0.5, AST 19, ALT 31, alkaline phosphatase 81. SARS-CoV-2 negative. ASSESSMENT AND PLAN: A 75-year-old male who presents with accidental overdose of insulin. 1. Accidental overdose of insulin: He was hypoglycemic, asymptomatic. In the Emergency Room, given an ampule of dextrose. We will place him on D5 normal saline at 100 mL per hour. Hold his home insulin, place on sliding scale. Follow the blood sugars. When his sugars start going high, he may be discharged to continue his home insulin regimen. Closely monitor in the med-telemetry. Check blood sugars q.2 hours for now. 2. Hypertension: Continue his losartan. 3. Hyperlipidemia: Continue statin. 4. Benign prostatic hypertrophy: Continue finasteride and Flomax. 5. Deep venous thrombosis prophylaxis: Sequential compression devices for now. DISPOSITION: Observation in the med-tele. PT/OT prior to discharge. Social service to help with discharge plan. Level 1, full code. Job ID: [id number] [facility]
--- NOTE | 2021-01-15 17:42 | Communication Note ---
Date of Service: January 15, 2021 75 years old with diabetes on insulin was admitted with hypoglycemic episode following wrongly administered short-acting insulin instead of long-acting. He remained stable and the blood sugar has been maintaining since admission. Full progress note will follow tomorrow. DR Tashi Workman
[2021-01-15] MEDS ORDERED: TAMSULOSIN HCL 0.4 MG CAP PO SCH (21:00)
[2021-01-15] MEDS ORDERED: ALUMINUM/MAGNESIUM/SIMETH (MAALOX MAX) 30 ML UDC PO PRN (23:48)
[2021-01-16 07:00] LABS: Basophils # (auto) 0.03 K/uL (0-0.2); Basophils % (auto) 0.5 %; Eosinophils # (auto) 0.31 K/uL (0-0.5); Eosinophils % (auto) 5.1 %; Hematocrit (blood only) 46.4 % (42-52); Hemoglobin 15.4 g/dL (14.0-18.0); Immature Granulocytes # (auto) 0.01 K/uL (0.00-0.02); Immature Granulocytes % (auto) 0.2 %; Lymphocytes # (auto) 1.27 K/uL (1.2-3.4); Mean Corpuscular Hgb Conc 33.2 g/dL (32-36); Mean Corpuscular Volume 93.4 fL (80-100); Mean Platelet Volume 10.3 fL (7.4-10.4); Monocytes # (auto) 0.61 K/uL (0.11-0.59); Monocytes % (auto) 10.1 %; Neutrophils # (auto) 3.83 K/uL (1.4-6.5); Neutrophils % (auto) 63.1 %; Platelet Count 186 K/uL (130-400); RDW Standard Deviation 47.3 fL (36.4-46.3); Red Blood Count 4.97 M/uL (4.7-6.1); White Blood Count 6.06 K/uL (4.8-10.8)
[2021-01-16 07:30] LABS: BUN Creatinine Ratio 17.2 (10-20); Calcium 9.2 mg/dl (8.5-10.1); Creatinine Clr Calc Pharmacy 59.8 ml/min; Est GFR (African American) 65.7 ml/min; Est GFR (Non-African American) 56.7 ml/min; Magnesium 2.1 mg/dl (1.8-2.4); Potassium 4.3 mmol/L (3.5-5.1)
[2021-01-16] MEDS: INSULIN ASPART PER UNIT SC SCH ×2 (08:15→12:39)
[2021-01-16] MEDS: ATORVASTATIN 40 MG TAB PO SCH (08:16)
[2021-01-16] MEDS: LOSARTAN POTASSIUM 50 MG TAB PO SCH (08:16)
[2021-01-16] MEDS: ASPIRIN 81 MG ECTAB PO SCH (08:16)
[2021-01-16] MEDS: FINASTERIDE 5 MG TAB PO SCH (08:17)
[2021-01-16] MEDS: MULTIVITAMIN TAB PO SCH (08:17)
[2021-01-16] MEDS: ASCORBIC ACID 500 MG TAB PO SCH (08:17)
[2021-01-16 09:06] LABS: Estimated Average Glucose 111 mg/dl; Hemoglobin A1C 5.5 % (4.5-5.6)
--- NOTE | 2021-01-16 11:37 | Hospitalist Progress Note ---
Date of Service January 16, 2021 Assessment & Plan (1) Insulin adverse reaction: Plan: Took short acting insulin instead of usual Lantus at night He was feeling weird in the morning and came to the emergency room when his blood sugar was noted to be in 55 range Has been feeling much better since admission and didn't have any more hypoglycemic episode in the hospital Denies any symptoms as of this morning and will be sent home this afternoon (2) Diabetes mellitus: Plan: Diabetes on insulin He takes NovoLog insulin 12 units before breakfast, 20 units before lunch and 22 units before supper He uses Lantus 56 unit at bedtime He has an educator who works with him all the time He will keep in touch with his educator on Monday No adjustment of his insulin was met during this admission (3) Hypertension: Plan: Blood pressure is controlled (4) Obesity: Plan: Advised to lose weight through regular exercise and diet Plan: Will be discharged home this afternoon Admission and Anticipated Discharge Date Admission Date: January 15, 2021 Subjective 01/16/2021 The patient was seen and examined in telemetry unit He has been feeling much better and denies any symptoms His blood sugar has been running normal since admission He'll be discharged home this afternoon Review of Systems Review of Systems: All systems reviewed and are unremarkable except as noted below Physical Exam Physical Exam: Sitting on a chair without any acute distress Constitutional: well developed, well nourished and + obese; not ill appearing Eyes: PERRL, conjunctivae normal, anicteric sclerae ENMT: external ear and nose normal, oropharynx normal Neck: trachea midline, no thyromegaly Respiratory: no respiratory distress Auscultation: lungs clear to auscultation bilaterally; no crackles Cardiovascular: Rate/Rhythm: regular rate and regular rhythm; not tachycardic Heart Sounds: normal S1 and normal S2; no murmur Extremities: + edema (Trace to 1+ edema bilaterally) Gastrointestinal (Abdomen): Inspection/Auscultation: normal bowel sounds; abdomen not distended Percussion/Palpation: abdomen soft; abdomen nontender Musculoskeletal: No acute arthritis in any joint Neurologic: Alert, awake and oriented x3. No focal sensory no motor deficit appreciated Lymphatic: no cervical or axillary lymphadenopathy Results & Data Results & Data ([facility]) Vital Signs (Past 12 Hours) Vital Signs Temp Pulse Pulse Resp BP Pulse Ox 01/16/21 07:16 71 01/16/21 06:31 36.5 C 71 17 165/91 H 93 01/16/21 03:19 36.4 C L 68 18 153/84 H 94 Laboratory Results Short CBC 01/16/21 Range/Units 05:38 WBC 6.06 (4.8-10.8) K/uL Hgb 15.4 (14.0-18.0) g/dL Hct 46.4 (42-52) % Plt Count 186 (130-400) K/uL BMP 01/16/21 05:38 Sodium 137 Potassium 4.3 Chloride 104 Carbon Dioxide 27 BUN 21 H Creatinine 1.23 Glucose 109 H Calcium 9.2 Medications Administered Current Inpatient Medications Acetaminophen (Acetaminophen 325 Mg Tab) 650 mg PO Q4H PRN PRN Reason: Pain or Fever Stop: 02/14/21 07:44 Al Hydrox/Mg Hydrox/Simethicone (Aluminum/Magnesium/Simeth (Maalox Max) 30 Ml Udc) 30 ml PO Q6H PRN PRN Reason: Heartburn Stop: 02/14/21 23:47 Last Admin: 01/16/21 00:35 Dose: 30 ml Documented by: Ascorbic Acid (Ascorbic Acid 500 Mg Tab) 1,000 mg PO DAILY RAJIV Stop: 02/14/21 08:59 Last Admin: 01/16/21 08:17 Dose: 1,000 mg Documented by: Aspirin (Aspirin 81 Mg Ectab) 81 mg PO DAILY RAJIV Stop: 02/14/21 08:59 Last Admin: 01/16/21 08:16 Dose: 81 mg Documented by: Atorvastatin Calcium (Atorvastatin 40 Mg Tab) 40 mg PO DAILY RAJIV Stop: 02/14/21 08:59 Last Admin: 01/16/21 08:16 Dose: 40 mg Documented by: Ergocalciferol (Ergocalciferol 50,000 Units 1250 Mcg Cap) 50,000 units PO Q28D@0900 [facility] Stop: 02/19/21 08:59 Finasteride (Finasteride 5 Mg Tab) 5 mg PO DAILY RAJIV Stop: 02/14/21 08:59 Last Admin: 01/16/21 08:17 Dose: 5 mg Documented by: Insulin Aspart (Insulin Aspart Per Unit) 0 units SC ACHS RAJIV Stop: 02/14/21 07:44 Last Admin: 01/16/21 08:15 Dose: Not Given Documented by: Losartan Potassium (Losartan Potassium 50 Mg Tab) 50 mg PO DAILY [facility] Stop: 02/14/21 08:59 Last Admin: 01/16/21 08:16 Dose: 50 mg Documented by: Miscellaneous (Metronidazole 0.75 % Cream ~ Order Awaiting Action) 1 ea N/A QS [facility] Stop: 02/14/21 07:59 Last Admin: 01/16/21 07:32 Dose: Not Given Documented by: Multivitamins (Multivitamin Tab) 1 tab PO DAILY [facility] Stop: 02/14/21 08:59 Last Admin: 01/16/21 08:17 Dose: 1 tab Documented by: Nitroglycerin (Nitroglycerin Sl 0.4 Mg/Tab Tab) 0.4 mg SL UD PRN PRN Reason: Chest Pain Stop: 02/14/21 07:44 Tamsulosin HCl (Tamsulosin Hcl 0.4 Mg Cap) 0.4 mg PO PM [facility] Stop: 02/14/21 20:59 Last Admin: 01/15/21 20:25 Dose: 0.4 mg Documented by:
--- NOTE | 2021-01-16 17:32 | Emergency Department Note ---
Impression & Plan Medication adverse effect, Medication administered in error ED Provider Note CHIEF COMPLAINT: Insulin mixup/overdose HISTORY OF PRESENT ILLNESS: This 75-year-old male patient presents to the e mergency department after administering a full day's dose of NovoLog instead of his Lantus. Patient states he has insulin predrawn up into syringes and grabbed the wrong syringe. He did not take the Lantus thereafter. Patient is relatively asymptomatic at this time. He has not eaten anything nor has he checked his sugar since administering the medication at around 11 PM. He took approximately 56 units of NovoLog. REVIEW OF SYSTEMS: A review of systems was performed with positives and pert inent negatives listed in the history of present illness. 10 systems were reviewed and are otherwise negative. ALLERGIES: see below MEDICATIONS: see below PMH: see below SOCIAL HISTORY: see below DDx: Overdose, hypoglycemia, medication error, altered mentation PHYSICAL EXAM: Vital signs reviewed. General: Well-appearing 75 yo male, in no significant distress. HEENT: No scleral icterus, PERRLA, neck supple. Atraumatic. Cardiovascular: Regular rate and rhythm, no extra sounds. Pulmonary: Clear to auscultation bilaterally, normal work of breathing. Abdomen: Soft, obese, nontender, nondistended, positive bowel sounds. Musculoskeletal: Atraumatic, no peripheral edema. Neurologic: Patient awake alert and oriented x 3 Skin: Warm, dry, no rash EMERGENCY DEPARTMENT COURSE/MDM: This patient was evaluated and appeared to be in no significant distress. Patient's blood glucose was evaluated at approximately 3 hours after the insulin administration. Blood sugar was 55. Patient was given oral food and fluid including sugar packets and orange juice. Repeat blood glucose an hour and 15 minutes later was 59. IV access was obtained and laboratory work was been drawn. Patient was medicated with 1 amp of D50. Given that the patient lives at home by himself and that it is in the middle of the night, I feel it is in the patient's best interest to be evaluated for close monitoring of the glucose to prevent a significant hypoglycemic event. Hospitalist service was consulted for further management. Patient was made aware of the plan and agreed. MONITORING: An order for cardiac monitoring was placed and the patient is noted to be in a normal sinus rhythm at 73 beats per minute. DISPOSITION: Hospitalist evaluation Past Med/Surg History Medical History (Updated 01/16/21 @ 17:33 by Jacklyn Bergman MD) Acute urinary retention Carpal tunnel syndrome of left wrist Cervical disc disease Chronic kidney disease (CKD), stage II (mild) CKD stage 3 secondary to diabetes Diabetes mellitus Enlarged prostate without lower urinary tract symptoms (luts) History of broken leg Hypertension Obesity Polyneuropathy PSA elevation Vitamin D deficiency Surgical History S/P appendectomy Family History Other Family history non-contributory Social History Smoking Status: Never smoker Hx Alcohol Use: No Hx Substance Use: No Preferred Language: Kittitian Entry Analyst Required: No Beliefs That Will Affect Care: None marital status: marital status details: Current Living Situation: Alone current occupational status: retired 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 Other Information That Helps Us Care for You: No 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 Assistive Devices: Glasses Allergies Allergies Allergy/AdvReac Type Severity Reaction Status Date / Time No Known Allergies AdvReac Unknown Verified 01/15/21 01:57 Home Meds Home Medications Medication Instructions Recorded Confirmed ascorbic acid (vitamin C) 1,000 mg 1 g PO DAILY 11/22/17 01/15/21 tablet (Vitamin C) canagliflozin 100 mg tablet 100 mg PO QAM 11/22/17 01/15/21 (Invokana) dulaglutide 0.75 mg/0.5 mL 0.75 mg SUBCUT WK 11/22/17 01/15/21 subcutaneous pen injector (Trulicity) insulin aspart U-100 100 unit/mL 12 unit SUBCUT QAM 11/22/17 01/15/21 subcutaneous cartridge (Novolog PenFill U-100 Insulin aspart) insulin aspart U-100 100 unit/mL 20 unit SUBCUT QDL 11/22/17 01/15/21 subcutaneous cartridge (Novolog PenFill U-100 Insulin aspart) insulin aspart U-100 100 unit/mL 22 unit SUBCUT PM 11/22/17 01/15/21 subcutaneous cartridge (Novolog PenFill U-100 Insulin aspart) atorvastatin 40 mg tablet 40 mg PO DAILY tab 08/27/18 01/15/21 losartan 50 mg tablet 50 mg PO DAILY 09/06/18 01/15/21 insulin glargine 100 unit/mL 60 unit SUBCUT PM ml 09/14/20 01/15/21 subcutaneous solution (Lantus U-100 Insulin) aspirin 81 mg tablet,delayed 81 mg PO DAILY 01/15/21 01/15/21 release (Aspirin Low Dose) metronidazole 0.75 % topical cream 1 applic TOPICAL UD 01/15/21 01/15/21 multivitamin (Multiple Vitamins) 1 tab PO DAILY 01/15/21 01/15/21 Previous Rx's Medication Instructions Recorded finasteride 5 mg tablet 5 mg PO DAILY #90 tab 04/20/20 tamsulosin 0.4 mg capsule (Flomax) 0.4 mg PO PM #90 cap 04/20/20 ergocalciferol (vitamin D2) 1,250 1,250 mcg PO MONTHLY #12 cap 10/26/20 mcg (50,000 unit) capsule Results & Data (ED) Home Medications Current Medication List: was personally reviewed by me Laboratory Data Attestation: I reviewed the patient's lab results. Result diagrams: 01/16/21 05:38 01/16/21 05:38 Lab Results 01/15/21 01/15/21 01/15/21 Range/Units 00:41 00:58 00:58 WBC 5.77 (4.8-10.8) K/uL RBC 4.91 (4.7-6.1) M/uL Hgb 15.3 (14.0-18.0) g/dL Hct 45.6 (42-52) % MCV 92.9 (80-100) fL MCH 31.2 (25-34) pg MCHC 33.6 (32-36) g/dL RDW Std Deviation 46.8 H (36.4-46.3) fL RDW Coeff of Ashok 13.9 (11.5-14.5) % Plt Count 181 (130-400) K/uL MPV 10.3 (7.4-10.4) fL Immature Gran % (Auto) 0.2 % Neut % (Auto) 61.2 % Lymph % (Auto) 25.6 % Elliott % (Auto) 8.5 % Eos % (Auto) 4.2 % Baso % (Auto) 0.3 % Neut # (Auto) 3.53 (1.4-6.5) K/uL Lymph # (Auto) 1.48 (1.2-3.4) K/uL Elliott # (Auto) 0.49 (0.11-0.59) K/uL Eos # (Auto) 0.24 (0-0.5) K/uL Baso # (Auto) 0.02 (0-0.2) K/uL Immature Gran # (Auto) 0.01 (0.00-0.02) K/uL Sodium 139 (136-145) mmol/L Potassium 3.9 (3.5-5.1) mmol/L Chloride 106 (98-107) mmol/L Carbon Dioxide 29 (21-32) mmol/L Anion Gap 4.0 (3-11) BUN 24 H (7-18) mg/dl Creatinine 1.24 (0.6-1.4) mg/dl Est Cr Clr Drug Dosing Not Reportable Est GFR ( Amer) 65.0 ml/min Est GFR (Non-Af Amer) 56.1 ml/min BUN/Creatinine Ratio 19.4 (10-20) Glucose 108 H (70-99) mg/dl POC Glucose 100 H (70-99) mg/dl Calcium 9.7 (8.5-10.1) mg/dl Total Bilirubin 0.5 (0.2-1) mg/dl AST 19 (15-37) U/L ALT 31 (12-78) Alkaline Phosphatase 81 (45-117) U/L Total Protein 7.3 (6.4-8.2) gm/dl Albumin 3.6 (3.4-5.0) gm/dl Globulin 3.7 (2.5-4.0) gm/dl Albumin/Globulin Ratio 1.0 (0.9-2) SARS-CoV-2, RNA, NAAT (NEGATIVE) 01/15/21 01/15/21 01/15/21 Range/Units 02:39 03:47 04:05 WBC (4.8-10.8) K/uL RBC (4.7-6.1) M/uL Hgb (14.0-18.0) g/dL Hct (42-52) % MCV (80-100) fL MCH (25-34) pg MCHC (32-36) g/dL RDW Std Deviation (36.4-46.3) fL RDW Coeff of Ashok (11.5-14.5) % Plt Count (130-400) K/uL MPV (7.4-10.4) fL Immature Gran % (Auto) % Neut % (Auto) % Lymph % (Auto) % Elliott % (Auto) % Eos % (Auto) % Baso % (Auto) % Neut # (Auto) (1.4-6.5) K/uL Lymph # (Auto) (1.2-3.4) K/uL Elliott # (Auto) (0.11-0.59) K/uL Eos # (Auto) (0-0.5) K/uL Baso # (Auto) (0-0.2) K/uL Immature Gran # (Auto) (0.00-0.02) K/uL Sodium (136-145) mmol/L Potassium (3.5-5.1) mmol/L Chloride (98-107) mmol/L Carbon Dioxide (21-32) mmol/L Anion Gap (3-11) BUN (7-18) mg/dl Creatinine (0.6-1.4) mg/dl Est Cr Clr Drug Dosing Est GFR ( Amer) ml/min Est GFR (Non-Af Amer) ml/min BUN/Creatinine Ratio (10-20) Glucose (70-99) mg/dl POC Glucose 55 L* 59 L* (70-99) mg/dl Calcium (8.5-10.1) mg/dl Total Bilirubin (0.2-1) mg/dl AST (15-37) U/L ALT (12-78) Alkaline Phosphatase (45-117) U/L Total Protein (6.4-8.2) gm/dl Albumin (3.4-5.0) gm/dl Globulin (2.5-4.0) gm/dl Albumin/Globulin Ratio (0.9-2) SARS-CoV-2, RNA, NAAT NEGATIVE (NEGATIVE) 01/15/21 Range/Units 05:20 WBC (4.8-10.8) K/uL RBC (4.7-6.1) M/uL Hgb (14.0-18.0) g/dL Hct (42-52) % MCV (80-100) fL MCH (25-34) pg MCHC (32-36) g/dL RDW Std Deviation (36.4-46.3) fL RDW Coeff of Ashok (11.5-14.5) % Plt Count (130-400) K/uL MPV (7.4-10.4) fL Immature Gran % (Auto) % Neut % (Auto) % Lymph % (Auto) % Elliott % (Auto) % Eos % (Auto) % Baso % (Auto) % Neut # (Auto) (1.4-6.5) K/uL Lymph # (Auto) (1.2-3.4) K/uL Elliott # (Auto) (0.11-0.59) K/uL Eos # (Auto) (0-0.5) K/uL Baso # (Auto) (0-0.2) K/uL Immature Gran # (Auto) (0.00-0.02) K/uL Sodium (136-145) mmol/L Potassium (3.5-5.1) mmol/L Chloride (98-107) mmol/L Carbon Dioxide (21-32) mmol/L Anion Gap (3-11) BUN (7-18) mg/dl Creatinine (0.6-1.4) mg/dl Est Cr Clr Drug Dosing Est GFR ( Amer) ml/min Est GFR (Non-Af Amer) ml/min BUN/Creatinine Ratio (10-20) Glucose (70-99) mg/dl POC Glucose 122 H (70-99) mg/dl Calcium (8.5-10.1) mg/dl Total Bilirubin (0.2-1) mg/dl AST (15-37) U/L ALT (12-78) Alkaline Phosphatase (45-117) U/L Total Protein (6.4-8.2) gm/dl Albumin (3.4-5.0) gm/dl Globulin (2.5-4.0) gm/dl Albumin/Globulin Ratio (0.9-2) SARS-CoV-2, RNA, NAAT (NEGATIVE) Administered Medications Discontinued Medications Al Hydrox/Mg Hydrox/Simethicone (Aluminum/Magnesium/Simeth (Maalox Max) 30 Ml Udc) 30 ml PO Q6H PRN PRN Reason: Heartburn Stop: 02/14/21 23:47 Last Admin: 01/16/21 00:35 Dose: 30 ml Documented by: [id number] Ascorbic Acid (Ascorbic Acid 500 Mg Tab) 1,000 mg PO DAILY [facility] Stop: 02/14/21 08:59 Last Admin: 01/16/21 08:17 Dose: 1,000 mg Documented by: [id number] Admin: 01/15/21 09:33 Dose: 1,000 mg Documented by: [id number] Aspirin (Aspirin 81 Mg Ectab) 81 mg PO DAILY [facility] Stop: 02/14/21 08:59 Last Admin: 01/16/21 08:16 Dose: 81 mg Documented by: [id number] Admin: 01/15/21 09:33 Dose: 81 mg Documented by: [id number] Atorvastatin Calcium (Atorvastatin 40 Mg Tab) 40 mg PO DAILY [facility] [place] Stop: 02/14/21 08:59 Last Admin: 01/16/21 08:16 Dose: 40 mg Documented by: [id number] Admin: 01/15/21 09:33 Dose: 40 mg Documented by: [id number] Dextrose (Dextrose 50% 50 Ml Syringe) 50 ml IV NOW [facility] Stop: 01/15/21 03:53 Last Admin: 01/15/21 04:02 Dose: 50 ml Documented by: [id number] Finasteride (Finasteride 5 Mg Tab) 5 mg PO DAILY [facility] [place] Stop: 02/14/21 08:59 Last Admin: 01/16/21 08:17 Dose: 5 mg Documented by: [id number] Admin: 01/15/21 09:33 Dose: 5 mg Documented by: [id number] Dextrose/Sodium Chloride (D5w And Nss) 1,000 mls @ 80 mls/hr IV .[id number] [facility] Stop: 02/14/21 07:44 Last Admin: 01/15/21 10:07 Dose: Not Given Documented by: [id number] Insulin Aspart (Insulin Aspart Per Unit) 0 units SC ACHS [facility] Stop: 02/14/21 07:44 Last Admin: 01/16/21 12:39 Dose: Not Given Documented by: [id number] Admin: 01/16/21 08:15 Dose: Not Given Documented by: [id number] Admin: 01/15/21 21:00 Dose: Not Given Documented by: [id number] Admin: 01/15/21 16:34 Dose: Not Given Documented by: [id number] Admin: 01/15/21 12:15 Dose: Not Given Documented by: [id number] Admin: 01/15/21 09:43 Dose: Not Given Documented by: [id number] Losartan Potassium (Losartan Potassium 50 Mg Tab) 50 mg PO DAILY [facility] [place] Stop: 02/14/21 08:59 Last Admin: 01/16/21 08:16 Dose: 50 mg Documented by: [id number] Admin: 01/15/21 09:33 Dose: 50 mg Documented by: [id number] Miscellaneous (Metronidazole 0.75 % Cream ~ Order Awaiting Action) 1 ea N/A QS [facility] [place] Stop: 02/14/21 07:59 Last Admin: 01/16/21 07:32 Dose: Not Given Documented by: [id number] Admin: 01/16/21 00:03 Dose: Not Given Documented by: [id number] Admin: 01/15/21 16:34 Dose: Not Given Documented by: [id number] Admin: 01/15/21 10:07 Dose: Not Given Documented by: [id number] Multivitamins (Multivitamin Tab) 1 tab PO DAILY [facility] Stop: 02/14/21 08:59 Last Admin: 01/16/21 08:17 Dose: 1 tab Documented by: [id number] Admin: 01/15/21 09:34 Dose: 1 tab Documented by: [id number] Tamsulosin HCl (Tamsulosin Hcl 0.4 Mg Cap) 0.4 mg PO PM [facility] [place] Stop: 02/14/21 20:59 Last Admin: 01/15/21 20:25 Dose: 0.4 mg Documented by: [id number] Blood Pressure Blood Pressure Findings: Elevated blood pressure Blood Pressure Disposition: did not require urgent referral Discharge Plan Visit Data Chief Complaint: Overdose (Accidental) Stated Complaint: TOOK THE WRONG INSULIN ED Provider: Jacklyn Bergman Discharge Problem: Medication adverse effect, Medication administered in error Patient Disposition: Admitted As Inpatient Condition: Good Discharge Instructions Interventions: ED Discharge Assessment Last Done: 01/15/21 07:52 Discharge Problem: Medication adverse effect Qualifiers: Encounter type: initial encounter Qualified Code(s): T50.905A - Adverse effect of unspecified drugs, medicaments and biological substances, initial encounter Medication administered in error Qualifiers: Encounter type: initial encounter Injury intent: accidental or unintentional Qualified Code(s): T50.901A - Poisoning by unspecified drugs, medicaments and biological substances, accidental (unintentional), initial encounter
--- NOTE | 2021-01-16 17:48 | Discharge Summary ---
Date of Service January 16, 2021 Admission HPI Per Admitting Provider DICTATED BY:Giancarlo Worthy MD DATE OF ADMISSION: 01/15/2021 CHIEF COMPLAINT: Accidental overdose of insulin. HISTORY OF PRESENT ILLNESS: A 75-year-old male with past medical history significant for type 2 diabetes, hyperlipidemia, chronic kidney disease stage III, hypertension, obesity, BPH, presented with accidental overdose of insulin. The patient is on NovoLog 12 units with breakfast, 20 units with lunch and 22 units with supper and on Lantus 56 units before going to sleep. Accidentally instead of Lantus, he took NovoLog 56 units and when he was going to sleep, he remembered it and he came to the hospital. His sugars were in 55; even after orange juice and making him eat, they were still in the 50s, so he was given an amp of D50. Currently, his sugars are 122. The patient says generally with hypoglycemia, he feels weird, but today he has no symptoms, no dizziness, no shakiness, no palpitations. Currently, resting comfortably and hemodynamically stable. Denies any headache. No blurred visions, no earache, no runny nose, no sore throat, no cough, no fevers, no nausea, no chest pain, no shortness of breath, no abdominal pain. Normal bowel and bladder movements. Admission Exam Per Admitting Provider GENERAL: The patient is obese, not in acute distress. VITAL SIGNS: Temperature 36.5, pulse 105, respirations are 19, blood pressure 156/68, oxygen 95% on room air. HEENT: Pupils equal, round and reactive to light. Oral mucosa moist. NECK: No JVD, no neck masses. CARDIOVASCULAR: S1 and S2 heard. Regular rate and rhythm. No murmur, no gallop. RESPIRATORY SYSTEM: Normal AP diameter. No accessory muscle use. No wheezing, no crackles. ABDOMEN: Soft, bowel sounds present, nontender, no distention. CENTRAL NERVOUS SYSTEM: Cranial nerves II-XII grossly intact, nonfocal. EXTREMITIES: No edema, no erythema. Principal Diagnosis Accidental use of short-acting insulin with hypoglycemia, type 2 diabetes on insulin Discharge Exam Sitting on a chair without any acute distress Constitutional well developed, well nourished and + obese; not ill appearing Eyes PERRL, conjunctivae normal, anicteric sclerae ENMT external ear and nose normal, oropharynx normal Neck trachea midline, no thyromegaly Respiratory no respiratory distress Auscultation: lungs clear to auscultation bilaterally; no crackles Cardiovascular Rate/Rhythm: regular rate and regular rhythm; not tachycardic Heart Sounds: normal S1 and normal S2; no murmur Extremities: + edema (Trace to 1+ edema bilaterally) Gastrointestinal (Abdomen) Inspection/Auscultation: normal bowel sounds; abdomen not distended Percussion/Palpation: abdomen soft; abdomen nontender Lymphatic no cervical or axillary lymphadenopathy Discharge Data Allergies Allergy/AdvReac Type Severity Reaction Status Date / Time No Known Allergies AdvReac Unknown Verified 01/15/21 01:57 Consultations 01/15/21 03:52 ED Decision to Admit Stat Hospital Course (1) Insulin adverse reaction: Took short acting insulin instead of usual Lantus at night He was feeling weird in the morning and came to the emergency room when his blood sugar was noted to be in 55 range Has been feeling much better since admission and didn't have any more hypoglycemic episode in the hospital Denies any symptoms as of this morning and will be sent home this afternoon (2) Diabetes mellitus: Diabetes on insulin He takes NovoLog insulin 12 units before breakfast, 20 units before lunch and 22 units before supper He uses Lantus 56 unit at bedtime He has an educator who works with him all the time He will keep in touch with his educator on Monday No adjustment of his insulin was met during this admission (3) Hypertension: Blood pressure is controlled (4) Obesity: Advised to lose weight through regular exercise and diet Will be discharged home this afternoon Total Time Total Time Spent Total Time Spent (In Minutes): 35 minutes Discharge Plan Discharge Items Patient Disposition: Home - Self-Care Reason For Visit: OVERDOSE ACCIDENTAL Discharge Diagnosis: Accidental use of short-acting insulin with hypoglycemia, type 2 diabetes on insulin Condition on Discharge: Good Activity: Resume your previous activity Non-emergency contact: Primary Care Provider Call non-emergency contact if: you have any medication questions and your symptoms worsen Follow-up/Referrals: PCP,NO [Primary Care Provider] - (Please make an appointment with your primary care physician within 1 week) Diet: Carb Consistent or DM2 Addtl Attending Provider Instructions: Please try to take your insulin as directed Check your blood sugar regularly and keep in touch with your nurse educator No change of his insulin regimen was done on discharge Pending Studies at Discharge: No Stand-Alone Forms: My [facility], Smoking Cessation Medications and DC Order Prescriptions: Continued ergocalciferol (vitamin D2) 1,250 mcg (50,000 unit) capsule 1,250 mcg PO MONTHLY Qty: 12 RF: 0 finasteride 5 mg tablet 5 mg PO DAILY Qty: 90 RF: 3 tamsulosin [Flomax] 0.4 mg capsule 0.4 mg PO PM Qty: 90 RF: 3 atorvastatin 40 mg tablet 40 mg PO DAILY RF: 0 losartan 50 mg tablet 50 mg PO DAILY RF: 0 ascorbic acid (vitamin C) [Vitamin C] 1,000 mg Tablet 1 g PO DAILY RF: 0 insulin aspart U-100 [Novolog PenFill U-100 Insulin] 100 unit/mL Cartridge 12 unit SUBCUT QAM RF: 0 insulin aspart U-100 [Novolog PenFill U-100 Insulin] 100 unit/mL Cartridge 20 unit SUBCUT QDL RF: 0 insulin aspart U-100 [Novolog PenFill U-100 Insulin] 100 unit/mL Cartridge 22 unit SUBCUT PM RF: 0 Invokana 100 mg Tablet 100 mg PO QAM RF: 0 Trulicity 0.75 mg/0.5 mL Pen Injector 0.75 mg subcut WK RF: 0 Lantus U-100 Insulin 100 unit/mL solution 60 unit SUBCUT PM RF: 0 metronidazole 0.75 % cream 1 applic TOPICAL UD RF: 0 multivitamin [Multiple Vitamins] Tablet 1 tab PO DAILY RF: 0 aspirin [Aspirin Low Dose] 81 mg Tablet,Delayed Release (Dr/Ec) 81 mg PO DAILY RF: 0 Discharge Orders: Discharge Order (Routine); Ordered 01/16/21 Ordered By: Fernie Workman Admission Data Admit Date/Time: 01/15/21 05:56 Attending Provider: eFrnie Workman Admit Provider: Giancarlo Worthy Primary Care Provider: PCP,NO Other Providers: Giancarlo Worthy Other Interventions: Discharge Summary Assessment (RN) Last Done: 01/16/21 11:47
[2021-01-20] MEDS ORDERED: ERGOCALCIFEROL 50,000 UNITS 1250 MCG CAP PO SCH (09:00)
== END 2021-01-16 12:40 | disposition home or self-care (01) ==
LOC: ED 00:33 → 2S 00:33
DX: E11.22 Type 2 diabetes mellitus with diabetic chronic kidney disease; I12.9 Hypertensive chronic kidney disease with stage 1 through stage 4 chronic kidney disease, or unspecified chronic kidney disease; E78.5 Hyperlipidemia, unspecified; N40.0 Benign prostatic hyperplasia without lower urinary tract symptoms; T38.3X5A Adverse effect of insulin and oral hypoglycemic [antidiabetic] drugs, initial encounter; Z79.899 Other long term (current) drug therapy; E66.9 Obesity, unspecified; Z79.82 Long term (current) use of aspirin; Z79.4 Long term (current) use of insulin; N18.30 Chronic kidney disease, stage 3 unspecified

== ENCOUNTER 2022-03-06 23:57 | Observation (INO) ==
--- NOTE | 2022-03-07 00:30 | Emergency Department Note ---
History of Present Illness General Chief complaint: Hypoglycemia Stated complaint: TOOK WRONG INSULIN Time Seen by Provider: 03/07/22 00:09 History of Present Illness 76-year-old male with a history of diabetes states that he checked his blood sugar 45 minutes prior to arrival it was 144 typically he will take Lantus for the evening. Instead he accidentally took 50 units of NovoLog. Patient states he has done this in the past. Patient denies any nausea vomiting diaphoresis. Patient denies any other complaints now. Home Medications Medication Instructions Recorded Confirmed Type ascorbic acid (vitamin C) 1,000 mg 2,000 mg PO DAILY 11/22/17 01/14/22 History tablet (Vitamin C) canagliflozin 100 mg tablet 100 mg PO QAM 11/22/17 01/14/22 History (Invokana) insulin aspart U-100 100 unit/mL 10 - 12 unit subcut QAM 11/22/17 01/14/22 History subcutaneous cartridge (Novolog PenFill U-100 Insulin aspart) insulin aspart U-100 100 unit/mL 18 unit subcut QDL 11/22/17 01/14/22 History subcutaneous cartridge (Novolog PenFill U-100 Insulin aspart) insulin aspart U-100 100 unit/mL 20 unit subcut PM 11/22/17 01/14/22 History subcutaneous cartridge (Novolog PenFill U-100 Insulin aspart) atorvastatin 40 mg tablet 40 mg PO DAILY 08/27/18 01/14/22 History losartan 50 mg tablet 50 mg PO QAM 09/06/18 01/14/22 History insulin glargine 100 unit/mL 50 unit subcut PM 09/14/20 01/14/22 History subcutaneous solution (Lantus U-100 Insulin) aspirin 81 mg tablet,delayed 81 mg PO DAILY 01/15/21 01/14/22 History release (Luis Low Dose Aspirin) multivitamin (Multiple Vitamins 1 tab PO DAILY 01/15/21 01/14/22 History tablet) tamsulosin 0.4 mg capsule (Flomax) 0.4 mg PO PM #90 caps 05/10/21 01/14/22 Rx ergocalciferol (vitamin D2) 1,250 1,250 mcg PO MONTHLY #12 caps 08/03/21 01/14/22 Rx mcg (50,000 unit) capsule dulaglutide 1.5 mg/0.5 mL 1.5 mg subcut WK 01/14/22 01/14/22 History subcutaneous pen injector (Trulicity) finasteride 5 mg tablet 5 mg PO QAM 01/14/22 01/14/22 History Allergies Allergy/AdvReac Type Severity Reaction Status Date / Time No Known Allergies AdvReac Unknown Verified 01/14/22 01:40 Past Med/Surg History Medical History Acute urinary retention Carpal tunnel syndrome of left wrist Cervical disc disease Chronic kidney disease (CKD), stage II (mild) CKD stage 3 secondary to diabetes Diabetes mellitus Enlarged prostate without lower urinary tract symptoms (luts) History of broken leg Hypertension Lumbar spondylosis Obesity Polyneuropathy PSA elevation Trochanteric bursitis, right hip Vitamin D deficiency Surgical History S/P appendectomy Family History Other Family history non-contributory Social History Smoking Status: Never smoker Hx Alcohol Use: No Hx Substance Use: No Preferred Language: Macedonian [employer] Estate Underwriter Required: No Beliefs That Will Affect Care: None marital status: marital status details: Current Living Situation: Alone current occupational status: retired 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 Assistive Devices: Glasses Review of Systems A total of 10 systems reviewed and were otherwise negative Cardiovascular: no chest pain Gastrointestinal: no abdominal pain Physical Exam Vital Signs Vital Signs - 24 hr 03/07/22 00:03 03/07/22 03:00 Temperature 36.7 C Temperature Source Temporal Artery Scan Pulse Rate 83 Pulse Rate [Right] 76 Respiratory Rate 18 18 Respiratory Effort / Characteristics Non-Labored Spontaneous Non-Labored Respiratory Depth Normal Normal Blood Pressure 157/75 H Blood Pressure [Right Arm] 141/74 H Blood Pressure Mean 102 Blood Pressure Mean [Right Arm] 96 Blood Pressure Position Sitting Pulse Oximetry 96 96 Oxygen Delivery Method Room Air Room Air Sepsis Recent Fever Within 48 Hours No Sepsis New/Unexplained Change in Mental Status No Sepsis Action Taken by Nursing No Action Required GENERAL: Patient is awake alert in no acute distress patient is resting comfortably and showing no signs of anxiety EYES: The conjunctivae are clear. The pupils are round and reactive. EARS, NOSE, MOUTH AND THROAT: The nose is without any evidence of any deformity. Mucous membranes are moist. Tongue is midline. NECK: The neck is nontender and supple. RESPIRATORY: Normal respiratory effort is noted there is no evidence of wheezing rhonchi or rales CARDIOVASCULAR: Regular rate and rhythm noted there no murmurs rubs or gallops normal S1 normal S2. GASTROINTESTINAL: The abdomen is soft. Abdomen is nontender. BACK: No midline tenderness or or step-off noted range of motion in flexion extension as well as rotation no signs of muscle spasm noted MUSCULOSKELETAL/EXTREMITIES: There is no evidence of gross deformity full range of motion is noted in the hips and shoulders. SKIN: There is no obvious evidence of any rash. There are no petechiae, pallor or cyanosis noted. NEUROLOGIC: Patient is awake alert and oriented x3 strength is symmetric PSYCH: Normal affect Course Reevaluation(s) Reevaluation #1: Patient continued to drop his blood sugar, patient was started on IV D10 and had D10 bolus x2. Repeat examination the patient the patient is alert in no distress he was eating and drinking Coca-[employer]a. Time: 02:59 Consultations Consultation #1: Spoke with the [facility] for admission, accepts the patient for admission for hypoglycemia Time: 02:59 Administered Medications Dextrose (D10w) 1,000 mls @ 125 mls/hr IV .Q8H [facility] Stop: 04/06/22 01:44 Last Admin: 03/07/22 01:58 Dose: 125 mls/hr Documented By: PATRIZIA Discontinued Medications Dextrose (D10w) 250 mls @ 999 mls/hr IV .Q16M [facility] Stop: 04/06/22 01:44 Last Admin: 03/07/22 01:56 Dose: Not Given Documented By: PATRIZIA Medical Decision Making Medical Records Attestation: I reviewed the patient's medical records. Home Medications Current Medication List: was personally reviewed by me Laboratory Data Attestation: I reviewed the patient's lab results. 03/07/22 00:25 03/07/22 00:25 Lab Results 03/07/22 03/07/22 03/07/22 Range/Units 00:06 00:25 00:25 WBC 5.87 (4.8-10.8) K/ul RBC 4.99 (4.70-6.10) M/uL Hgb 15.5 (14.0-18.0) g/dl Hct 45.3 (42.0-52.0) % MCV 90.8 (80.0-100.0) fL MCH 31.1 (25.0-34.0) pg MCHC 34.2 (32.0-36.0) g/dL RDW Std Deviation 44.4 (36.4-46.3) fL RDW Coeff of Ashok 13.3 (11.5-14.5) % Plt Count 150 (130-400) K/uL MPV 9.7 (9.4-12.4) fL Immature Gran % (Auto) 0.2 % Neut % (Auto) 59.9 % Lymph % (Auto) 21.5 % [place] % (Auto) 9.7 % Eos % (Auto) 7.8 % Baso % (Auto) 0.9 % Neut # (Auto) 3.52 (1.40-6.50) K/uL Lymph # (Auto) 1.26 (1.2-3.4) K/uL [place] # (Auto) 0.57 (0.11-0.59) K/uL Eos # (Auto) 0.46 (0-0.50) K/uL Baso # (Auto) 0.05 (0-0.2) K/uL Immature Gran # (Auto) 0.01 (0.01-0.20) K/uL Sodium 140 (136-145) mmol/L Potassium 4.2 (3.5-5.1) mmol/L Chloride 108 H (98-107) mmol/L Carbon Dioxide 27 (21-32) mmol/L Anion Gap 5 (3-11) BUN 24 H (6-23) mg/dl Creatinine 1.14 (0.6-1.4) mg/dl Est Cr Clr Drug Dosing 61.6 ml/min Est GFR ( Amer) 71.5 ml/min Est GFR (Non-Af Amer) 61.7 ml/min BUN/Creatinine Ratio 21.1 H (10-20) Glucose 72 (70-99(Fasting)) mg/dl POC Glucose 89 (70-99) mg/dl Calcium 9.6 (8.5-10.1) mg/dl Total Bilirubin 0.6 (0.2-1.0) mg/dl AST 22 (13-39) U/L ALT 21 (7-52) U/L Alkaline Phosphatase 60 (34-104) U/L Total Protein 7.0 (6.0-8.3) gm/dl Albumin 3.8 (3.4-5.0) gm/dl Globulin 3.2 (2.5-4.0) gm/dl Albumin/Globulin Ratio 1.2 (0.9-2) SARS-CoV-2, RNA, NAAT (NEGATIVE) 03/07/22 03/07/22 03/07/22 Range/Units 01:07 01:08 01:32 WBC (4.8-10.8) K/ul RBC (4.70-6.10) M/uL Hgb (14.0-18.0) g/dl Hct (42.0-52.0) % MCV (80.0-100.0) fL MCH (25.0-34.0) pg MCHC (32.0-36.0) g/dL RDW Std Deviation (36.4-46.3) fL RDW Coeff of Ashok (11.5-14.5) % Plt Count (130-400) K/uL MPV (9.4-12.4) fL Immature Gran % (Auto) % Neut % (Auto) % Lymph % (Auto) % [place] % (Auto) % Eos % (Auto) % Baso % (Auto) % Neut # (Auto) (1.40-6.50) K/uL Lymph # (Auto) (1.2-3.4) K/uL [place] # (Auto) (0.11-0.59) K/uL Eos # (Auto) (0-0.50) K/uL Baso # (Auto) (0-0.2) K/uL Immature Gran # (Auto) (0.01-0.20) K/uL Sodium (136-145) mmol/L Potassium (3.5-5.1) mmol/L Chloride (98-107) mmol/L Carbon Dioxide (21-32) mmol/L Anion Gap (3-11) BUN (6-23) mg/dl Creatinine (0.6-1.4) mg/dl Est Cr Clr Drug Dosing ml/min Est GFR ( Amer) ml/min Est GFR (Non-Af Amer) ml/min BUN/Creatinine Ratio (10-20) Glucose (70-99(Fasting)) mg/dl POC Glucose 50 L* 56 L* 42 L* (70-99) mg/dl Calcium (8.5-10.1) mg/dl Total Bilirubin (0.2-1.0) mg/dl AST (13-39) U/L ALT (7-52) U/L Alkaline Phosphatase (34-104) U/L Total Protein (6.0-8.3) gm/dl Albumin (3.4-5.0) gm/dl Globulin (2.5-4.0) gm/dl Albumin/Globulin Ratio (0.9-2) SARS-CoV-2, RNA, NAAT (NEGATIVE) 03/07/22 03/07/22 03/07/22 Range/Units 01:34 02:20 02:39 WBC (4.8-10.8) K/ul RBC (4.70-6.10) M/uL Hgb (14.0-18.0) g/dl Hct (42.0-52.0) % MCV (80.0-100.0) fL MCH (25.0-34.0) pg MCHC (32.0-36.0) g/dL RDW Std Deviation (36.4-46.3) fL RDW Coeff of Ashok (11.5-14.5) % Plt Count (130-400) K/uL MPV (9.4-12.4) fL Immature Gran % (Auto) % Neut % (Auto) % Lymph % (Auto) % [place] % (Auto) % Eos % (Auto) % Baso % (Auto) % Neut # (Auto) (1.40-6.50) K/uL Lymph # (Auto) (1.2-3.4) K/uL [place] # (Auto) (0.11-0.59) K/uL Eos # (Auto) (0-0.50) K/uL Baso # (Auto) (0-0.2) K/uL Immature Gran # (Auto) (0.01-0.20) K/uL Sodium (136-145) mmol/L Potassium (3.5-5.1) mmol/L Chloride (98-107) mmol/L Carbon Dioxide (21-32) mmol/L Anion Gap (3-11) BUN (6-23) mg/dl Creatinine (0.6-1.4) mg/dl Est Cr Clr Drug Dosing ml/min Est GFR ( Amer) ml/min Est GFR (Non-Af Amer) ml/min BUN/Creatinine Ratio (10-20) Glucose (70-99(Fasting)) mg/dl POC Glucose 40 L* 76 48 L* (70-99) mg/dl Calcium (8.5-10.1) mg/dl Total Bilirubin (0.2-1.0) mg/dl AST (13-39) U/L ALT (7-52) U/L Alkaline Phosphatase (34-104) U/L Total Protein (6.0-8.3) gm/dl Albumin (3.4-5.0) gm/dl Globulin (2.5-4.0) gm/dl Albumin/Globulin Ratio (0.9-2) SARS-CoV-2, RNA, NAAT (NEGATIVE) 03/07/22 03/07/22 Range/Units 02:42 02:57 WBC (4.8-10.8) K/ul RBC (4.70-6.10) M/uL Hgb (14.0-18.0) g/dl Hct (42.0-52.0) % MCV (80.0-100.0) fL MCH (25.0-34.0) pg MCHC (32.0-36.0) g/dL RDW Std Deviation (36.4-46.3) fL RDW Coeff of Ashok (11.5-14.5) % Plt Count (130-400) K/uL MPV (9.4-12.4) fL Immature Gran % (Auto) % Neut % (Auto) % Lymph % (Auto) % [place] % (Auto) % Eos % (Auto) % Baso % (Auto) % Neut # (Auto) (1.40-6.50) K/uL Lymph # (Auto) (1.2-3.4) K/uL [place] # (Auto) (0.11-0.59) K/uL Eos # (Auto) (0-0.50) K/uL Baso # (Auto) (0-0.2) K/uL Immature Gran # (Auto) (0.01-0.20) K/uL Sodium (136-145) mmol/L Potassium (3.5-5.1) mmol/L Chloride (98-107) mmol/L Carbon Dioxide (21-32) mmol/L Anion Gap (3-11) BUN (6-23) mg/dl Creatinine (0.6-1.4) mg/dl Est Cr Clr Drug Dosing ml/min Est GFR ( Amer) ml/min Est GFR (Non-Af Amer) ml/min BUN/Creatinine Ratio (10-20) Glucose (70-99(Fasting)) mg/dl POC Glucose 48 L* (70-99) mg/dl Calcium (8.5-10.1) mg/dl Total Bilirubin (0.2-1.0) mg/dl AST (13-39) U/L ALT (7-52) U/L Alkaline Phosphatase (34-104) U/L Total Protein (6.0-8.3) gm/dl Albumin (3.4-5.0) gm/dl Globulin (2.5-4.0) gm/dl Albumin/Globulin Ratio (0.9-2) SARS-CoV-2, RNA, NAAT NEGATIVE (NEGATIVE) MDM Narrative Medical decision making differential diagnosis includes insulin reaction, hypoglycemia, metabolic derangement, accidental overdose of insulin Plan is to check labs, observe, watch blood sugar Nursing notes reviewed by me Patient continued to have a decrease in his blood sugar, concern for insulin reaction, patient was started on D10, despite D10 continued to have hypoglycemia. Case was discussed with the hospitalist, the patient will be admitted for insulin induced hypoglycemia Impression & Plan Hypoglycemia, Adverse effect of insulin Discharge Plan Visit Data Chief Complaint: Hypoglycemia Stated Complaint: TOOK WRONG INSULIN ED Provider: Andres Vallejo Discharge Problem: Hypoglycemia, Adverse effect of insulin Patient Disposition: Admitted As Inpatient Forms Stand Alone Forms: My [facility] Prescriptions Prescriptions: No Action ergocalciferol (vitamin D2) 1,250 mcg (50,000 unit) capsule 1,250 mcg PO MONTHLY Qty: 12 0RF Rx Instructions: 15th of each month tamsulosin [Flomax] 0.4 mg capsule 0.4 mg PO PM Qty: 90 3RF atorvastatin 40 mg tablet 40 mg PO DAILY losartan 50 mg tablet 50 mg PO QAM ascorbic acid (vitamin C) [Vitamin C] 1,000 mg Tablet 2,000 mg PO DAILY insulin aspart U-100 [Novolog PenFill U-100 Insulin] 100 unit/mL Cartridge 10 - 12 unit SUBCUT QAM insulin aspart U-100 [Novolog PenFill U-100 Insulin] 100 unit/mL Cartridge 18 unit SUBCUT QDL insulin aspart U-100 [Novolog PenFill U-100 Insulin] 100 unit/mL Cartridge 20 unit SUBCUT PM Invokana 100 mg Tablet 100 mg PO QAM Lantus U-100 Insulin 100 unit/mL solution 50 unit SUBCUT PM multivitamin [Multiple Vitamins] Tablet 1 tab PO DAILY aspirin [Luis Low Dose Aspirin] 81 mg Tablet,Delayed Release (Dr/Ec) 81 mg PO DAILY finasteride 5 mg tablet 5 mg PO QAM Trulicity 1.5 mg/0.5 mL pen injector 1.5 mg SUBCUT WK Rx Instructions: take this med every Monday Referrals Referrals: Jt,Rolando Cummins, RPLisa [Outside Practitioners] -
[2022-03-07 00:43] LABS: Basophils # (auto) 0.05 K/uL (0-0.2); Basophils % (auto) 0.9 %; Eosinophils # (auto) 0.46 K/uL (0-0.50); Eosinophils % (auto) 7.8 %; Hematocrit (blood only) 45.3 % (42.0-52.0); Hemoglobin 15.5 g/dl (14.0-18.0); Immature Granulocytes # (auto) 0.01 K/uL (0.01-0.20); Immature Granulocytes % (auto) 0.2 %; Lymphocytes # (auto) 1.26 K/uL (1.2-3.4); Lymphocytes % (auto) 21.5 %; Mean Corpuscular Hemoglobin 31.1 pg (25.0-34.0); Mean Corpuscular Hgb Conc 34.2 g/dL (32.0-36.0); Mean Corpuscular Volume 90.8 fL (80.0-100.0); Mean Platelet Volume 9.7 fL (9.4-12.4); Monocytes # (auto) 0.57 K/uL (0.11-0.59); Monocytes % (auto) 9.7 %; Neutrophils # (auto) 3.52 K/uL (1.40-6.50); Neutrophils % (auto) 59.9 %; Platelet Count 150 K/uL (130-400); RDW Coefficient of Variation 13.3 % (11.5-14.5); RDW Standard Deviation 44.4 fL (36.4-46.3); Red Blood Count 4.99 M/uL (4.70-6.10); White Blood Count 5.87 K/ul (4.8-10.8)
[2022-03-07 00:57] LABS: Albumin Level 3.8 gm/dl (3.4-5.0); Bilirubin,Total 0.6 mg/dl (0.2-1.0); Calcium 9.6 mg/dl (8.5-10.1); Potassium 4.2 mmol/L (3.5-5.1)
[2022-03-07 01:03] LABS: Albumin Globulin Ratio 1.2 (0.9-2); BUN Creatinine Ratio 21.1 (10-20); Creatinine Clr Calc Pharmacy 61.6 ml/min; Est GFR (African American) 71.5 ml/min; Est GFR (Non-African American) 61.7 ml/min; Globulin 3.2 gm/dl (2.5-4.0)
[2022-03-07] MEDS ORDERED: DEXTROSE 10% 250 ML IV SCH (01:45)
[2022-03-07] MEDS ORDERED: DEXTROSE 10% 1,000 ML IV SCH (01:45)
[2022-03-07] MEDS ORDERED: LACTATED RINGER'S 1,000 ML IV ONE (04:17)
[2022-03-07] MEDS ORDERED: GLUCOSE 40% GEL 15 GM TUBE PO PRN ×2 (04:18→07:15)
[2022-03-07] MEDS ORDERED: GLUCOSE 10 TAB/TUBE PO PRN ×2 (04:18→07:15)
[2022-03-07] MEDS ORDERED: CARBOHYDRATES FOR HYPOGLYCEMIA PO PRN ×2 (04:18→07:15)
[2022-03-07] MEDS ORDERED: DEXTROSE 50% 50 ML SYRINGE IV PRN ×2 (04:18→07:15)
[2022-03-07] MEDS ORDERED: GLUCAGON FOR INJ 1 MG VIAL SQ PRN ×2 (04:18→07:15)
--- NOTE | 2022-03-07 05:13 | History & Physical Report ---
Date of Service March 07, 2022 Assessment & Plan (1) Hypoglycemia: Plan: History DM2 insulin requiring, well-controlled as of recent hemoglobin A1c of 5.7 last December 2021 Patient with asymptomatic hypoglycemic events even at home as per her account. Recurrent ER visits for wrongful insulin intake Possible functional disability HTN, slight elevated hyperlipidemia on statin Rx hx BPH, stable on regimen OBS Medical telemetry Hypoglycemia protocol Appropriate to hold home insulin for now Initiate ISS once BSG > 140 Update hemoglobin A1c DM educator Re: wrongful insulin intake, recurrent incidents Patient requesting for provider to contact his [facility] pharmacist (Mr. Malaika Waters, contact #[phone] ) to coordinate regimen prior to discharge. PT OT eval DVT prophylaxis. Lovenox subcu Full code Text document was generated using [employer] voice recognition software. It may contain grammatical or spelling errors. Kindly contact undersigned for clarification of any documentation item in question. History of Present Illness Chief Complaint: Injected wrong insulin Primary Care Provider: Shady Ross DO History obtained from patient and records. Medical history significant for HTN, hyperlipidemia, DM2 insulin requiring BPH, history urolithiasis. Last confinement January 2021 for hypoglycemia secondary to wrong insulin intake. Patient administered NovoLog instead of his p.m. Lantus at night. Last year, patient had 5 ER visits for hypoglycemia secondary to wrong insulin intake. According to patient, he wakes up kind of groggy at night and inadvertently injects the wrong insulin. Patient woke up last night feeling fuzzy. 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 He injected his nighttime insulin later realizing he had injected NovoLog instead of Lantus. Patient proceeded to ER for evaluation. No headache, no chest pain, no shortness of breath, no abdominal pain, no syncope. Patient feels okay. BSG range 60 to 160 in the last week at home. No recent changes in regimen as per patient. BSG 40 to 50s at the ER. D10 IV fluid initiated. 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 Allergies Allergy/AdvReac Type Severity Reaction Status Date / Time No Known Allergies AdvReac Unknown Verified 01/14/22 01:40 Home Medications Medication Instructions Recorded Confirmed Type ascorbic acid (vitamin C) 1,000 mg 2,000 mg PO DAILY 11/22/17 01/14/22 History tablet (Vitamin C) canagliflozin 100 mg tablet 100 mg PO QAM 11/22/17 01/14/22 History (Invokana) insulin aspart U-100 100 unit/mL 12 unit subcut QAM 11/22/17 01/14/22 History subcutaneous cartridge (Novolog PenFill U-100 Insulin aspart) insulin aspart U-100 100 unit/mL 20 unit subcut QDL 11/22/17 01/14/22 History subcutaneous cartridge (Novolog PenFill U-100 Insulin aspart) insulin aspart U-100 100 unit/mL 22 unit subcut PM 11/22/17 01/14/22 History subcutaneous cartridge (Novolog PenFill U-100 Insulin aspart) atorvastatin 40 mg tablet 40 mg PO DAILY 08/27/18 01/14/22 History losartan 50 mg tablet 50 mg PO QAM 09/06/18 01/14/22 History insulin glargine 100 unit/mL 50 unit subcut PM 09/14/20 01/14/22 History subcutaneous solution (Lantus U-100 Insulin) aspirin 81 mg tablet,delayed 81 mg PO DAILY 01/15/21 01/14/22 History release (Luis Low Dose Aspirin) multivitamin (Multiple Vitamins 1 tab PO DAILY 01/15/21 01/14/22 History tablet) tamsulosin 0.4 mg capsule (Flomax) 0.4 mg PO PM #90 caps 05/10/21 01/14/22 Rx ergocalciferol (vitamin D2) 1,250 1,250 mcg PO MONTHLY #12 caps 08/03/21 01/14/22 Rx mcg (50,000 unit) capsule dulaglutide 1.5 mg/0.5 mL 1.5 mg subcut WK 01/14/22 01/14/22 History subcutaneous pen injector (Trulicity) finasteride 5 mg tablet 5 mg PO QAM 01/14/22 01/14/22 History Past Med/Surg History Medical History Acute urinary retention Carpal tunnel syndrome of left wrist Cervical disc disease Chronic kidney disease (CKD), stage II (mild) CKD stage 3 secondary to diabetes Diabetes mellitus Enlarged prostate without lower urinary tract symptoms (luts) History of broken leg Hypertension Lumbar spondylosis Obesity Polyneuropathy PSA elevation Trochanteric bursitis, right hip Vitamin D deficiency Surgical History S/P appendectomy Family History Other Family history non-contributory Social History Smoking Status: Never smoker Second Hand Exposure: No; Do You Dip or Chew Tobacco: No; Hx Alcohol Use: No Hx Substance Use: No Preferred Language: Divehi Fruit Vendor Required: No Beliefs That Will Affect Care: None marital status: marital status details: Current Living Situation: Alone current occupational status: retired 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 Assistive Devices: Glasses Review of Systems Review of Systems: As per HPI, all other systems reviewed and negative Physical Exam Physical Exam: GENERAL: Comfortable, obese, pleasant, no respiratory distress SKIN: Normal color, warm HEENT: [place] palpebral conjunctivae, no ptosis, moist buccal mucosa NECK : Supple, short neck, no tenderness CHEST : CTA, no tenderness HEART : RRR, no obvious murmurs ABDOMEN: Some distention, nontender EXTREMITIES : Minimal LE swelling, no LE tenderness, no other conspicuous deformities noted NEUROLOGIC : Coherent, no facial asymmetry, no other gross focality Results & Data Results & Data ([facility]) Vital Signs (Past 12 Hours) Vital Signs Temp Pulse Pulse Resp BP BP Pulse Ox 03/07/22 03:00 76 18 141/74 H 96 03/07/22 00:03 36.7 C 83 18 157/75 H 96 O2 Del Method 03/07/22 03:00 Room Air 03/07/22 00:03 Room Air Laboratory Results Laboratory Results WBC 5.87 K/ul (4.8-10.8) 03/07/22 00:25 RBC 4.99 M/uL (4.70-6.10) 03/07/22 00:25 Hgb 15.5 g/dl (14.0-18.0) 03/07/22 00:25 Hct 45.3 % (42.0-52.0) 03/07/22 00:25 MCV 90.8 fL (80.0-100.0) 03/07/22 00:25 MCH 31.1 pg (25.0-34.0) 03/07/22 00:25 MCHC 34.2 g/dL (32.0-36.0) 03/07/22 00:25 RDW Std Deviation 44.4 fL (36.4-46.3) 03/07/22 00:25 RDW Coeff of Ashok 13.3 % (11.5-14.5) 03/07/22 00:25 Plt Count 150 K/uL (130-400) 03/07/22 00:25 MPV 9.7 fL (9.4-12.4) 03/07/22 00:25 Immature Gran % (Auto) 0.2 % 03/07/22 00:25 Neut % (Auto) 59.9 % 03/07/22 00:25 Lymph % (Auto) 21.5 % 03/07/22 00:25 [place] % (Auto) 9.7 % 03/07/22 00:25 Eos % (Auto) 7.8 % 03/07/22 00:25 Baso % (Auto) 0.9 % 03/07/22 00:25 Neut # (Auto) 3.52 K/uL (1.40-6.50) 03/07/22 00:25 Lymph # (Auto) 1.26 K/uL (1.2-3.4) 03/07/22 00:25 [place] # (Auto) 0.57 K/uL (0.11-0.59) 03/07/22 00:25 Eos # (Auto) 0.46 K/uL (0-0.50) 03/07/22 00:25 Baso # (Auto) 0.05 K/uL (0-0.2) 03/07/22 00:25 Immature Gran # (Auto) 0.01 K/uL (0.01-0.20) 03/07/22 00:25 Sodium 140 mmol/L (136-145) 03/07/22 00:25 Potassium 4.2 mmol/L (3.5-5.1) 03/07/22 00:25 Chloride 108 mmol/L (98-107) H 03/07/22 00:25 Carbon Dioxide 27 mmol/L (21-32) 03/07/22 00:25 Anion Gap 5 (3-11) 03/07/22 00:25 BUN 24 mg/dl (6-23) H 03/07/22 00:25 Creatinine 1.14 mg/dl (0.6-1.4) 03/07/22 00:25 Est Cr Clr Drug Dosing 61.6 ml/min 03/07/22 00:25 Est GFR ( Amer) 71.5 ml/min 03/07/22 00:25 Est GFR (Non-Af Amer) 61.7 ml/min 03/07/22 00:25 BUN/Creatinine Ratio 21.1 (10-20) H 03/07/22 00:25 Glucose 72 mg/dl (70-99(Fasting)) 03/07/22 00:25 POC Glucose 114 mg/dl (70-99) H 03/07/22 04:39 Calcium 9.6 mg/dl (8.5-10.1) 03/07/22 00:25 Total Bilirubin 0.6 mg/dl (0.2-1.0) 03/07/22 00:25 AST 22 U/L (13-39) 03/07/22 00:25 ALT 21 U/L (7-52) 03/07/22 00:25 Alkaline Phosphatase 60 U/L (34-104) 03/07/22 00:25 Total Protein 7.0 gm/dl (6.0-8.3) 03/07/22 00:25 Albumin 3.8 gm/dl (3.4-5.0) 03/07/22 00:25 Globulin 3.2 gm/dl (2.5-4.0) 03/07/22 00:25 Albumin/Globulin Ratio 1.2 (0.9-2) 03/07/22 00:25 SARS-CoV-2, RNA, NAAT NEGATIVE (NEGATIVE) 03/07/22 02:57
[2022-03-07] MEDS ORDERED: oxyCODONE HCL IR 5 MG TAB (IMMEDIATE RELEASE) PO PRN (06:04)
[2022-03-07] MEDS ORDERED: PROMETHAZINE HCL 12.5 MG in SODIUM CHLORIDE 0.9% 50 ML IV PRN (06:04)
[2022-03-07] MEDS ORDERED: ACETAMINOPHEN 325 MG TAB PO PRN (06:04)
[2022-03-07] MEDS ORDERED: LOSARTAN POTASSIUM 50 MG TAB PO SCH ×2 (07:10→09:00)
[2022-03-07 07:33] LABS: Estimated Average Glucose 111 mg/dl; Hemoglobin A1C 5.5 % (4.5-5.6)
[2022-03-07] MEDS ORDERED: ATORVASTATIN 40 MG TAB PO SCH (09:00)
[2022-03-07] MEDS ORDERED: FINASTERIDE 5 MG TAB PO SCH (09:00)
[2022-03-07] MEDS ORDERED: MULTIVITAMIN TAB PO SCH (09:00)
[2022-03-07] MEDS ORDERED: ASPIRIN 81 MG ECTAB PO SCH (09:00)
[2022-03-07] MEDS ORDERED: ENOXAPARIN INJ 40 MG/0.4 ML SYR SQ SCH (09:00)
[2022-03-07] MEDS: INSULIN ASPART PER UNIT SC SCH ×2 (09:12→13:07)
--- NOTE | 2022-03-07 14:13 | Hospitalist Progress Note ---
Date of Service March 07, 2022 Assessment & Plan (1) Hypoglycemia: Plan: Hypoglycemia H/O DM II He admits to taking NovoLog and instead of Glargine by mistake HbA1c 5.5 On hypoglycemia protocol Will plan to initiate insulin sliding scale once blood glucose levels better clinical systems educator consulted Monitor blood glucose levels HTN Continue losartan Monitor BP Hyperlipidemia on statin BPH On Proscar, tamsulosin DVT Px: Lovenox SQ Code Status Full code Admission and Anticipated Discharge Date Admission Date: March 07, 2022 Subjective Patient is seen and examined at bedside States feeling well this morning Offers no complaints Denies any chest pain, shortness of breath, dizziness, nausea, abdominal pain Eager to get discharged Review of Systems Review of Systems: All systems reviewed & are unremarkable except as noted in Subjective Physical Exam Physical Exam: Physical Exam: Vitals signs as noted above General Appearance:Obese, no apparent distress Head: normocephalic, Atraumatic Eyes: normal inspection, EOMI Neck: supple, Trachea midline Respiratory/Chest: Normal breath sounds, CTA, No accessory muscle use Cardiovascular: S1, S2, No murmur Abdomen/GI:Soft, Non tender, Bowel sounds present Extremities/Musculoskeletal:normal inspection, 1-2+ B/L pedal edema--Chronic per patient Neurologic/Psych:AAOX3, grossly no focal neurological deficits Skin: normal color, warm Results & Data Results & Data ([facility]) Vital Signs (Past 12 Hours) Vital Signs Temp Pulse Resp BP BP Pulse Ox O2 Del Method 03/07/22 11:48 37.4 C 83 18 171/68 H 95 Room Air 03/07/22 07:45 36.5 C 72 20 145/77 H 97 Room Air 03/07/22 06:10 36.5 C 78 20 167/82 H 96 Room Air 03/07/22 03:00 76 18 141/74 H 96 Room Air Laboratory Results Short CBC 03/07/22 Range/Units 00:25 WBC 5.87 (4.8-10.8) K/ul Hgb 15.5 (14.0-18.0) g/dl Hct 45.3 (42.0-52.0) % Plt Count 150 (130-400) K/uL BMP 03/07/22 00:25 Sodium 140 Potassium 4.2 Chloride 108 H Carbon Dioxide 27 BUN 24 H Creatinine 1.14 Glucose 72 Calcium 9.6 Liver Function 03/07/22 Range/Units 00:25 Total Bilirubin 0.6 (0.2-1.0) mg/dl AST 22 (13-39) U/L ALT 21 (7-52) U/L Alkaline Phosphatase 60 (34-104) U/L Albumin 3.8 (3.4-5.0) gm/dl
--- NOTE | 2022-03-07 15:09 | Discharge Summary ---
Date of Service March 07, 2022 Admission HPI Per Admitting Provider History obtained from patient and records. Medical history significant for HTN, hyperlipidemia, DM2 insulin requiring BPH, history urolithiasis. Last confinement January 2021 for hypoglycemia secondary to wrong insulin intake. Patient administered NovoLog instead of his p.m. Lantus at night. Last year, patient had 5 ER visits for hypoglycemia secondary to wrong insulin intake. According to patient, he wakes up kind of groggy at night and inadvertently injects the wrong insulin. Patient woke up last night feeling fuzzy. He had a busy day earlier doing work at one of his [employer]. He injected his nighttime insulin later realizing he had injected NovoLog instead of Lantus. Patient proceeded to ER for evaluation. No headache, no chest pain, no shortness of breath, no abdominal pain, no syncope. Patient feels okay. BSG range 60 to 160 in the last week at home. No recent changes in regimen as per patient. BSG 40 to 50s at the ER. D10 IV fluid initiated. 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 Admission Exam Per Admitting Provider Physical Exam Physical Exam: GENERAL: Comfortable, obese, pleasant, no respiratory distress SKIN: Normal color, warm HEENT: [place] palpebral conjunctivae, no ptosis, moist buccal mucosa NECK : Supple, short neck, no tenderness CHEST : CTA, no tenderness HEART : RRR, no obvious murmurs ABDOMEN: Some distention, nontender EXTREMITIES : Minimal LE swelling, no LE tenderness, no other conspicuous deformities noted NEUROLOGIC : Coherent, no facial asymmetry, no other gross focality Principal Diagnosis Hypoglycemia Discharge Data Allergies Allergy/AdvReac Type Severity Reaction Status Date / Time No Known Allergies AdvReac Unknown Verified 01/14/22 01:40 Consultations 03/07/22 02:57 ED Decision to Admit Stat Procedures Performed Laboratory Results WBC 5.87 K/ul (4.8-10.8) 03/07/22 00:25 RBC 4.99 M/uL (4.70-6.10) 03/07/22 00:25 Hgb 15.5 g/dl (14.0-18.0) 03/07/22 00:25 Hct 45.3 % (42.0-52.0) 03/07/22 00:25 MCV 90.8 fL (80.0-100.0) 03/07/22 00:25 MCH 31.1 pg (25.0-34.0) 03/07/22 00:25 MCHC 34.2 g/dL (32.0-36.0) 03/07/22 00:25 RDW Std Deviation 44.4 fL (36.4-46.3) 03/07/22 00:25 RDW Coeff of Ashok 13.3 % (11.5-14.5) 03/07/22 00:25 Plt Count 150 K/uL (130-400) 03/07/22 00:25 MPV 9.7 fL (9.4-12.4) 03/07/22 00:25 Immature Gran % (Auto) 0.2 % 03/07/22 00:25 Neut % (Auto) 59.9 % 03/07/22 00:25 Lymph % (Auto) 21.5 % 03/07/22 00:25 [place] % (Auto) 9.7 % 03/07/22 00:25 Eos % (Auto) 7.8 % 03/07/22 00:25 Baso % (Auto) 0.9 % 03/07/22 00:25 Neut # (Auto) 3.52 K/uL (1.40-6.50) 03/07/22 00:25 Lymph # (Auto) 1.26 K/uL (1.2-3.4) 03/07/22 00:25 [place] # (Auto) 0.57 K/uL (0.11-0.59) 03/07/22 00:25 Eos # (Auto) 0.46 K/uL (0-0.50) 03/07/22 00:25 Baso # (Auto) 0.05 K/uL (0-0.2) 03/07/22 00:25 Immature Gran # (Auto) 0.01 K/uL (0.01-0.20) 03/07/22 00:25 Sodium 140 mmol/L (136-145) 03/07/22 00:25 Potassium 4.2 mmol/L (3.5-5.1) 03/07/22 00:25 Chloride 108 mmol/L (98-107) H 03/07/22 00:25 Carbon Dioxide 27 mmol/L (21-32) 03/07/22 00:25 Anion Gap 5 (3-11) 03/07/22 00:25 BUN 24 mg/dl (6-23) H 03/07/22 00:25 Creatinine 1.14 mg/dl (0.6-1.4) 03/07/22 00:25 Est Cr Clr Drug Dosing 61.6 ml/min 03/07/22 00:25 Est GFR ( Amer) 71.5 ml/min 03/07/22 00:25 Est GFR (Non-Af Amer) 61.7 ml/min 03/07/22 00:25 BUN/Creatinine Ratio 21.1 (10-20) H 03/07/22 00:25 Glucose 72 mg/dl (70-99(Fasting)) 03/07/22 00:25 POC Glucose 101 mg/dl (70-99) H 03/07/22 11:58 Estimat Average Glucose 111 mg/dl 03/07/22 00:25 Hemoglobin A1c 5.5 % (4.5-5.6) 03/07/22 00:25 Calcium 9.6 mg/dl (8.5-10.1) 03/07/22 00:25 Total Bilirubin 0.6 mg/dl (0.2-1.0) 03/07/22 00:25 AST 22 U/L (13-39) 03/07/22 00:25 ALT 21 U/L (7-52) 03/07/22 00:25 Alkaline Phosphatase 60 U/L (34-104) 03/07/22 00:25 Total Protein 7.0 gm/dl (6.0-8.3) 03/07/22 00:25 Albumin 3.8 gm/dl (3.4-5.0) 03/07/22 00:25 Globulin 3.2 gm/dl (2.5-4.0) 03/07/22 00:25 Albumin/Globulin Ratio 1.2 (0.9-2) 03/07/22 00:25 SARS-CoV-2, RNA, NAAT NEGATIVE (NEGATIVE) 03/07/22 02:57 Hospital Course (1) Hypoglycemia: Hypoglycemia H/O DM II He admits to taking NovoLog and instead of Glargine by mistake HbA1c 5.5 On hypoglycemia protocol Will plan to initiate insulin sliding scale once blood glucose levels better music agent consulted Monitor blood glucose levels HTN Continue losartan Monitor BP Hyperlipidemia on statin BPH On Proscar, tamsulosin DVT Px: Lovenox SQ Code Status Full code Total Time Total Time Spent Total Time Spent (In Minutes): 49 minutes Discharge Plan Discharge Items Patient Disposition: Home - Self-Care Reason For Visit: HYPOGLYCEMIA Discharge Diagnosis: Hypoglycemia Activity: Per Instructions section Exercise/Sports: Gradually increase as tolerated Non-emergency contact: Primary Care Provider Call non-emergency contact if: you have any medication questions, your symptoms worsen, your pain is concerning for you and you have a fever Follow-up/Referrals: Shady Ross, [Primary Care Provider] - (Date & Time 03/11/2022 11:00 AM Provider Myron Reynoso MD Department Family Practice [facility] ) Diet: Carb Consistent or DM2 and Heart Healthy Addtl Attending Provider Instructions: Follow-up with your primary care physician Dr. Shady Ross on 03/11/2022 11:00 AM as scheduled --Your HbA1C is 5.5. Discuss with your physician for further adjustment of insulin and other medications for diabetes as needed. -- Monitor your blood glucose levels regularly. Seek immediate medical attention if your symptoms reoccur or worsen Please take all medications as instructed on discharge list below. Please call if you have any questions or problems. You can reach a [facility] hospitalist on duty at [facility] 24 hours a day by calling [phone] Pending Studies at Discharge: No Stand-Alone Forms: My [facility] [employer], Smoking Cessation Medications and DC Order Prescriptions: Continued ergocalciferol (vitamin D2) 1,250 mcg (50,000 unit) capsule 1,250 mcg PO MONTHLY Qty: 12 0RF Rx Instructions: 15 of each month tamsulosin [Flomax] 0.4 mg capsule 0.4 mg PO PM Qty: 90 3RF atorvastatin 40 mg tablet 40 mg PO DAILY losartan 50 mg tablet 50 mg PO QAM ascorbic acid (vitamin C) [Vitamin C] 1,000 mg Tablet 2,000 mg PO DAILY insulin aspart U-100 [Novolog PenFill U-100 Insulin] 100 unit/mL Cartridge 12 unit SUBCUT QAM insulin aspart U-100 [Novolog PenFill U-100 Insulin] 100 unit/mL Cartridge 20 unit SUBCUT QDL insulin aspart U-100 [Novolog PenFill U-100 Insulin] 100 unit/mL Cartridge 22 unit SUBCUT PM Invokana 100 mg Tablet 100 mg PO QAM Lantus U-100 Insulin 100 unit/mL solution 50 unit SUBCUT PM multivitamin [Multiple Vitamins] Tablet 1 tab PO DAILY aspirin [Luis Low Dose Aspirin] 81 mg Tablet,Delayed Release (Dr/Ec) 81 mg PO DAILY finasteride 5 mg tablet 5 mg PO QAM Trulicity 1.5 mg/0.5 mL pen injector 1.5 mg SUBCUT WK Rx Instructions: take this med every Monday Discharge Orders: Discharge Order (Routine); Ordered 03/07/22 Ordered By: Tony García Admission Data Admit Date/Time: 03/07/22 05:14 Attending Provider: Tony García Admit Provider: Arvin Ewing Primary Care Provider: Shady Ross Other Providers: Arvin Ewing
[2022-03-07] MEDS ORDERED: TAMSULOSIN HCL 0.4 MG CAP PO SCH (21:00)
== END 2022-03-07 15:44 | disposition home or self-care (01) ==
LOC: ED 23:57 → 2S 23:57

== ENCOUNTER 2022-04-24 23:27 | Observation (INO) ==
[2022-04-24] MEDS ORDERED: DEXTROSE 50% 50 ML SYRINGE IV ONE (23:40)
--- NOTE | 2022-04-25 00:06 | Emergency Department Note ---
Impression & Plan Hypoglycemia, Insulin reaction due to improper use of drug ED Provider Note NAME: SUGEY FLORES AGE: 76 SEX: M : 1945 ARRIVES VIA: Walk-In INFORMANT: Patient, ED PROVIDER(S): John Angelo DO CHIEF COMPLAINT: Low blood sugar HPI: The patient is a 76-year-old male who presented to the emergency department for an evaluation of low blood sugar. The patient accidentally took 45 units of NovoLog. He was scheduled to take 45 units of Lantus however he took his short acting insulin instead by accident. He is done this 1 other time. The patient was already started to become shaky. He had a blood sugar checked in the emergency department which was 59. The patient states he has no chest pain. He denies having any nausea or vomiting. He denies having any chest pain or difficulty breathing. He states otherwise he has been compliant with his outpatient medications. ROS: See above HPI for pertinent positives & negatives. A total of 10 systems reviewed and were otherwise negative. PAST MEDICAL HISTORY: See Below PAST SURGICAL HISTORY: See Below FAMILY HISTORY: See Below SOCIAL HISTORY: See Below HOME MEDICATIONS: See Below ALLERGIES: See Below VITALS: See Below PHYSICAL EXAMINATION: GENERAL: The patient is awake and alert. He is nonanxious appearing. EYES: The conjunctivae are clear. The pupils are round and reactive. EARS, NOSE, MOUTH AND THROAT: The nose is without any evidence of any deformity. NECK: The neck is nontender and supple. RESPIRATORY: Normal respiratory effort is noted there is no evidence of wheezing rhonchi or rales CARDIOVASCULAR: Regular rate and rhythm noted there no murmurs rubs or gallops normal S1 normal S2. GASTROINTESTINAL: The abdomen is soft. Abdomen is nontender. MUSCULOSKELETAL/EXTREMITIES: There is no evidence of gross deformity full range of motion is noted in the hips and shoulders. SKIN: Pedal edema was noted bilaterally. Skin was warm and dry. NEUROLOGIC: Patient is awake alert and oriented x3 MEDICAL DECISION MAKING: The patient is a 76-year-old male who is a history of insulin-dependent diabetes who accidentally took his NovoLog rather than his Lantus prior to bed. He took 45 units. He had a similar episode in the past. The patient presented with a low blood sugar but relatively asymptomatic. He was treated with IV dextrose as well as given p.o. intake. The patient did not feel much better. His subsequent blood sugar was also found to be lower than the first. I discussed h is condition with the [facility] pharmacist. I also [facility] have agreed to evaluate the patient in the emergency department for further management and disposition. Patient may require inpatient management to ensure he does not have significant hypoglycemia. Triage Nursing notes reviewed. Prior medical records reviewed Vital Signs: reviewed and remarkable for elevated blood pressure. Differential diagnosis: Infection, dehydration, metabolic abnormality, hypo/hyperglycemia, electrolyte disturbance, anemia, hypoxia, cardiac sources, intracerebral event, toxicologic, neurologic, as well as other pathologies. ER treatment provided: See below Diagnostics interpreted by me: ECG: none Cardiac Monitoring: An order was placed for continuous cardiac monitoring. The monitor shows a rate of 80 bpm with sinus rhythm. Laboratory studies: As stated above and show below. Imaging studies: See below. Radiographic imaging was reviewed by myself Consultation(s): I discussed the case with the [facility] pharmacist I discussed this case with Dr Worthy who was addictions counselor [facility]. ED COURSE: Patient noted second blood sugar measurement in the emergency department which was still low. This time was in the 40s. For this reason I do feel the patient would be a better candidate for overnight observation. Past Med/Surg History Medical History Acute urinary retention Carpal tunnel syndrome of left wrist Cervical disc disease Chronic kidney disease (CKD), stage II (mild) CKD stage 3 secondary to diabetes Diabetes mellitus Enlarged prostate without lower urinary tract symptoms (luts) History of broken leg Hypertension Lumbar spondylosis Obesity Polyneuropathy PSA elevation Trochanteric bursitis, right hip Vitamin D deficiency Surgical History S/P appendectomy Family History Other Family history non-contributory Social History Smoking Status: Never smoker Second Hand Exposure: No; Do You Dip or Chew Tobacco: No; Tobacco Cessation Education Requested by Patient: No Hx Alcohol Use: No Hx Substance Use: No Preferred Language: Afghan Communication Ability: Effective Mechanical 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 Other Information That Helps Us Care for You: No 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 Assistive Devices: Glasses Allergies Allergies Allergy/AdvReac Type Severity Reaction Status Date / Time No Known Allergies AdvReac Unknown Verified 04/25/22 02:14 Home Meds Home Medications Medication Instructions Recorded Confirmed ascorbic acid (vitamin C) 1,000 mg 0 mg PO DAILY 11/22/17 04/25/22 tablet (Vitamin C) canagliflozin 100 mg tablet 100 mg PO QAM 11/22/17 04/25/22 (Invokana) insulin aspart U-100 100 unit/mL 12 unit subcut QAM 11/22/17 04/25/22 subcutaneous cartridge (Novolog PenFill U-100 Insulin aspart) insulin aspart U-100 100 unit/mL 20 unit subcut QDL 11/22/17 04/25/22 subcutaneous cartridge (Novolog PenFill U-100 Insulin aspart) insulin aspart U-100 100 unit/mL 22 unit subcut PM 11/22/17 04/25/22 subcutaneous cartridge (Novolog PenFill U-100 Insulin aspart) atorvastatin 40 mg tablet 40 mg PO DAILY 08/27/18 04/25/22 losartan 50 mg tablet 50 mg PO QAM 09/06/18 04/25/22 insulin glargine 100 unit/mL 50 unit subcut PM 09/14/20 04/25/22 subcutaneous solution (Lantus U-100 Insulin) aspirin 81 mg tablet,delayed 81 mg PO DAILY 01/15/21 04/25/22 release (Luis Low Dose Aspirin) multivitamin (Multiple Vitamins 1 tab PO DAILY 01/15/21 04/25/22 tablet) dulaglutide 1.5 mg/0.5 mL 1.5 mg subcut WK 01/14/22 04/25/22 subcutaneous pen injector (Trulicity) finasteride 5 mg tablet 5 mg PO QAM 01/14/22 04/25/22 Previous Rx's Medication Instructions Recorded tamsulosin 0.4 mg capsule (Flomax) 0.4 mg PO PM #90 caps 05/10/21 ergocalciferol (vitamin D2) 1,250 1,250 mcg PO MONTHLY #12 caps 08/03/21 mcg (50,000 unit) capsule Results & Data (ED) Vital Signs Vital Signs - 24 hr 04/24/22 23:34 04/24/22 23:40 04/24/22 23:40 Temperature 37.2 C Temperature Source Temporal Artery Scan Pulse Rate 86 79 Pulse Rate [Left Finger] 82 Pulse Rhythm Pulse Rhythm [Left Finger] Regular Pulse Strength [Left Finger] Normal Respiratory Rate 18 20 20 Respiratory Effort / Characteristics Non-Labored Spontaneous Respiratory Depth Normal Normal Blood Pressure 164/88 H 166/81 H Blood Pressure [Left Arm] 166/81 H Blood Pressure Mean 113 109 Blood Pressure Mean [Left Arm] 109 Blood Pressure Position [Left Arm] Sitting Pulse Oximetry 94 96 97 Oxygen Delivery Method Room Air Room Air Room Air Sepsis Recent Fever Within 48 Hours No Sepsis New/Unexplained Change in Mental Status N/A Sepsis Action Taken by Nursing No Action Required 04/24/22 23:40 04/25/22 01:45 Temperature Temperature Source Pulse Rate 80 82 Pulse Rate [Left Finger] Pulse Rhythm Regular Pulse Rhythm [Left Finger] Pulse Strength [Left Finger] Respiratory Rate 20 Respiratory Effort / Characteristics Respiratory Depth Blood Pressure 141/105 H Blood Pressure [Left Arm] Blood Pressure Mean 117 Blood Pressure Mean [Left Arm] Blood Pressure Position [Left Arm] Pulse Oximetry 97 98 Oxygen Delivery Method Room Air Room Air Sepsis Recent Fever Within 48 Hours Sepsis New/Unexplained Change in Mental Status Sepsis Action Taken by [facility] Medications Current Medication List: was personally reviewed by me Laboratory Data Attestation: I reviewed the patient's lab results. 04/25/22 06:57 04/25/22 06:57 Lab Results 04/24/22 04/24/22 04/25/22 Range/Units 23:40 23:41 00:04 WBC (4.8-10.8) K/ul RBC (4.70-6.10) M/uL Hgb (14.0-18.0) g/dl Hct (42.0-52.0) % MCV (80.0-100.0) fL MCH (25.0-34.0) pg MCHC (32.0-36.0) g/dL RDW Std Deviation (36.4-46.3) fL RDW Coeff of Ashok (11.5-14.5) % Plt Count (130-400) K/uL MPV (9.4-12.4) fL Immature Gran % (Auto) % Neut % (Auto) % Lymph % (Auto) % [place] % (Auto) % Eos % (Auto) % Baso % (Auto) % Neut # (Auto) (1.40-6.50) K/uL Lymph # (Auto) (1.2-3.4) K/uL [place] # (Auto) (0.11-0.59) K/uL Eos # (Auto) (0-0.50) K/uL Baso # (Auto) (0-0.2) K/uL Immature Gran # (Auto) (0.01-0.20) K/uL Sodium (136-145) mmol/L Potassium (3.5-5.1) mmol/L Chloride (98-107) mmol/L Carbon Dioxide (21-32) mmol/L Anion Gap (3-11) BUN (6-23) mg/dl Creatinine (0.6-1.4) mg/dl Est Cr Clr Drug Dosing ml/min Est GFR ( Amer) ml/min Est GFR (Non-Af Amer) ml/min BUN/Creatinine Ratio (10-20) Glucose (70-99(Fasting)) mg/dl POC Glucose 59 L* 61 L* 77 (70-99) mg/dl Calcium (8.5-10.1) mg/dl Total Bilirubin (0.2-1.0) mg/dl AST (13-39) U/L ALT (7-52) U/L Alkaline Phosphatase (34-104) U/L Total Protein (6.0-8.3) gm/dl Albumin (3.4-5.0) gm/dl Globulin (2.5-4.0) gm/dl Albumin/Globulin Ratio (0.9-2) Lipase (11-82) U/L SARS-CoV-2, RNA, NAAT (NEGATIVE) 04/25/22 04/25/22 04/25/22 Range/Units 00:42 00:44 01:11 WBC 6.92 (4.8-10.8) K/ul RBC 4.61 L (4.70-6.10) M/uL Hgb 14.4 (14.0-18.0) g/dl Hct 42.2 (42.0-52.0) % MCV 91.5 (80.0-100.0) fL MCH 31.2 (25.0-34.0) pg MCHC 34.1 (32.0-36.0) g/dL RDW Std Deviation 44.3 (36.4-46.3) fL RDW Coeff of Ashok 13.2 (11.5-14.5) % Plt Count 156 (130-400) K/uL MPV 9.7 (9.4-12.4) fL Immature Gran % (Auto) 0.1 % Neut % (Auto) 70.8 % Lymph % (Auto) 15.6 % [place] % (Auto) 8.7 % Eos % (Auto) 4.2 % Baso % (Auto) 0.6 % Neut # (Auto) 4.90 (1.40-6.50) K/uL Lymph # (Auto) 1.08 L (1.2-3.4) K/uL [place] # (Auto) 0.60 H (0.11-0.59) K/uL Eos # (Auto) 0.29 (0-0.50) K/uL Baso # (Auto) 0.04 (0-0.2) K/uL Immature Gran # (Auto) 0.01 (0.01-0.20) K/uL Sodium (136-145) mmol/L Potassium (3.5-5.1) mmol/L Chloride (98-107) mmol/L Carbon Dioxide (21-32) mmol/L Anion Gap (3-11) BUN (6-23) mg/dl Creatinine (0.6-1.4) mg/dl Est Cr Clr Drug Dosing ml/min Est GFR ( Amer) ml/min Est GFR (Non-Af Amer) ml/min BUN/Creatinine Ratio (10-20) Glucose (70-99(Fasting)) mg/dl POC Glucose 46 L* 48 L* (70-99) mg/dl Calcium (8.5-10.1) mg/dl Total Bilirubin (0.2-1.0) mg/dl AST (13-39) U/L ALT (7-52) U/L Alkaline Phosphatase (34-104) U/L Total Protein (6.0-8.3) gm/dl Albumin (3.4-5.0) gm/dl Globulin (2.5-4.0) gm/dl Albumin/Globulin Ratio (0.9-2) Lipase (11-82) U/L SARS-CoV-2, RNA, NAAT (NEGATIVE) 04/25/22 04/25/22 04/25/22 Range/Units 01:11 01:11 01:21 WBC (4.8-10.8) K/ul RBC (4.70-6.10) M/uL Hgb (14.0-18.0) g/dl Hct (42.0-52.0) % MCV (80.0-100.0) fL MCH (25.0-34.0) pg MCHC (32.0-36.0) g/dL RDW Std Deviation (36.4-46.3) fL RDW Coeff of Ashok (11.5-14.5) % Plt Count (130-400) K/uL MPV (9.4-12.4) fL Immature Gran % (Auto) % Neut % (Auto) % Lymph % (Auto) % [place] % (Auto) % Eos % (Auto) % Baso % (Auto) % Neut # (Auto) (1.40-6.50) K/uL Lymph # (Auto) (1.2-3.4) K/uL [place] # (Auto) (0.11-0.59) K/uL Eos # (Auto) (0-0.50) K/uL Baso # (Auto) (0-0.2) K/uL Immature Gran # (Auto) (0.01-0.20) K/uL Sodium 138 (136-145) mmol/L Potassium 3.8 (3.5-5.1) mmol/L Chloride 106 (98-107) mmol/L Carbon Dioxide 25 (21-32) mmol/L Anion Gap 7 (3-11) BUN 17 (6-23) mg/dl Creatinine 1.06 (0.6-1.4) mg/dl Est Cr Clr Drug Dosing 65.6 ml/min Est GFR ( Amer) 78.1 ml/min Est GFR (Non-Af Amer) 67.4 ml/min BUN/Creatinine Ratio 16.0 (10-20) Glucose 70 (70-99(Fasting)) mg/dl POC Glucose 61 L* (70-99) mg/dl Calcium 8.7 (8.5-10.1) mg/dl Total Bilirubin 0.7 (0.2-1.0) mg/dl AST 24 (13-39) U/L ALT 23 (7-52) U/L Alkaline Phosphatase 56 (34-104) U/L Total Protein 6.4 (6.0-8.3) gm/dl Albumin 3.6 (3.4-5.0) gm/dl Globulin 2.8 (2.5-4.0) gm/dl Albumin/Globulin Ratio 1.3 (0.9-2) Lipase 29 (11-82) U/L SARS-CoV-2, RNA, NAAT NEGATIVE (NEGATIVE) 04/25/22 04/25/22 Range/Units 01:23 01:50 WBC (4.8-10.8) K/ul RBC (4.70-6.10) M/uL Hgb (14.0-18.0) g/dl Hct (42.0-52.0) % MCV (80.0-100.0) fL MCH (25.0-34.0) pg MCHC (32.0-36.0) g/dL RDW Std Deviation (36.4-46.3) fL RDW Coeff of Ashok (11.5-14.5) % Plt Count (130-400) K/uL MPV (9.4-12.4) fL Immature Gran % (Auto) % Neut % (Auto) % Lymph % (Auto) % [place] % (Auto) % Eos % (Auto) % Baso % (Auto) % Neut # (Auto) (1.40-6.50) K/uL Lymph # (Auto) (1.2-3.4) K/uL [place] # (Auto) (0.11-0.59) K/uL Eos # (Auto) (0-0.50) K/uL Baso # (Auto) (0-0.2) K/uL Immature Gran # (Auto) (0.01-0.20) K/uL Sodium (136-145) mmol/L Potassium (3.5-5.1) mmol/L Chloride (98-107) mmol/L Carbon Dioxide (21-32) mmol/L Anion Gap (3-11) BUN (6-23) mg/dl Creatinine (0.6-1.4) mg/dl Est Cr Clr Drug Dosing ml/min Est GFR ( Amer) ml/min Est GFR (Non-Af Amer) ml/min BUN/Creatinine Ratio (10-20) Glucose (70-99(Fasting)) mg/dl POC Glucose 62 L* 59 L* (70-99) mg/dl Calcium (8.5-10.1) mg/dl Total Bilirubin (0.2-1.0) mg/dl AST (13-39) U/L ALT (7-52) U/L Alkaline Phosphatase (34-104) U/L Total Protein (6.0-8.3) gm/dl Albumin (3.4-5.0) gm/dl Globulin (2.5-4.0) gm/dl Albumin/Globulin Ratio (0.9-2) Lipase (11-82) U/L SARS-CoV-2, RNA, NAAT (NEGATIVE) Administered Medications Aspirin (Aspirin 81 Mg Ectab) 81 mg PO DAILY [facility] Stop: 05/25/22 08:59 Last Admin: 04/25/22 08:50 Dose: 81 mg Documented By: BT Atorvastatin Calcium (Atorvastatin 40 Mg Tab) 40 mg PO DAILY [facility] Stop: 05/25/22 08:59 Last Admin: 04/25/22 08:50 Dose: 40 mg Documented By: BT Enoxaparin Sodium (Enoxaparin Inj 40 Mg/0.4 Ml Syr) 40 mg SQ Q12H [facility] Stop: 05/25/22 08:59 Last Admin: 04/25/22 08:50 Dose: 40 mg Documented By: BT Finasteride (Finasteride 5 Mg Tab) 5 mg PO QAM [facility] Stop: 05/25/22 08:59 Last Admin: 04/25/22 08:51 Dose: 5 mg Documented By: BT Losartan Potassium (Losartan Potassium 50 Mg Tab) 50 mg PO QAM [facility] Stop: 05/25/22 08:59 Last Admin: 04/25/22 08:51 Dose: 50 mg Documented By: BT Multivitamins (Multivitamin Tab) 1 tab PO DAILY [facility] Stop: 05/25/22 08:59 Last Admin: 04/25/22 08:51 Dose: 1 tab Documented By: MORGAN Discontinued Medications Dextrose (Dextrose 50% 50 Ml Syringe) 25 ml IV NOW ONE Stop: 04/24/22 23:41 Last Admin: 04/24/22 23:50 Dose: 25 ml Documented By: JUDIE Dextrose (Dextrose 50% 50 Ml Syringe) 25 ml IV NOW ONE Stop: 04/25/22 00:57 Last Admin: 04/25/22 00:52 Dose: 25 ml Documented By: JUDIE Sodium Chloride (Nss 1000ml) 1,000 mls @ 100 mls/hr IV .Q10H [facility] Stop: 04/25/22 13:07 Last Admin: 04/25/22 03:20 Dose: 100 mls/hr Documented By: LAT Discharge Plan Visit Data Chief Complaint: Hypoglycemia Stated Complaint: TOOK WRONG INSULIN, ED Provider: John Angelo Discharge Problem: Hypoglycemia, Insulin reaction due to improper use of drug Patient Disposition: Admitted As Inpatient Discharge Instructions Interventions: ED Discharge Assessment Last Done: 04/25/22 02:59 Insulin reaction due to improper use of drug Qualifiers: Encounter type: initial encounter Qualified Code(s): T38.3X1A - Poisoning by insulin and oral hypoglycemic [antidiabetic] drugs, accidental (unintentional), initial encounter
[2022-04-25] MEDS ORDERED: DEXTROSE 50% 50 ML SYRINGE IV ONE (00:56)
[2022-04-25 01:44] LABS: Basophils # (auto) 0.04 K/uL (0-0.2); Basophils % (auto) 0.6 %; Eosinophils # (auto) 0.29 K/uL (0-0.50); Eosinophils % (auto) 4.2 %; Hematocrit (blood only) 42.2 % (42.0-52.0); Hemoglobin 14.4 g/dl (14.0-18.0); Immature Granulocytes # (auto) 0.01 K/uL (0.01-0.20); Immature Granulocytes % (auto) 0.1 %; Lymphocytes # (auto) 1.08 K/uL (1.2-3.4); Lymphocytes % (auto) 15.6 %; Mean Corpuscular Hemoglobin 31.2 pg (25.0-34.0); Mean Corpuscular Hgb Conc 34.1 g/dL (32.0-36.0); Mean Corpuscular Volume 91.5 fL (80.0-100.0); Mean Platelet Volume 9.7 fL (9.4-12.4); Monocytes % (auto) 8.7 %; Neutrophils % (auto) 70.8 %; Platelet Count 156 K/uL (130-400); RDW Coefficient of Variation 13.2 % (11.5-14.5); RDW Standard Deviation 44.3 fL (36.4-46.3); Red Blood Count 4.61 M/uL (4.70-6.10); White Blood Count 6.92 K/ul (4.8-10.8)
[2022-04-25 01:48] LABS: Albumin Globulin Ratio 1.3 (0.9-2); Albumin Level 3.6 gm/dl (3.4-5.0); Bilirubin,Total 0.7 mg/dl (0.2-1.0); Calcium 8.7 mg/dl (8.5-10.1); Creatinine Clr Calc Pharmacy 65.6 ml/min; Est GFR (African American) 78.1 ml/min; Est GFR (Non-African American) 67.4 ml/min; Globulin 2.8 gm/dl (2.5-4.0); Potassium 3.8 mmol/L (3.5-5.1); Total Protein 6.4 gm/dl (6.0-8.3)
[2022-04-25] MEDS ORDERED: GLUCOSE 40% GEL 15 GM TUBE PO PRN (03:08)
[2022-04-25] MEDS ORDERED: SODIUM CHLORIDE 0.9% 1000ML 1,000 ML IV SCH (03:08)
[2022-04-25] MEDS ORDERED: DEXTROSE 50% 50 ML SYRINGE IV PRN (03:08)
[2022-04-25] MEDS ORDERED: ACETAMINOPHEN 325 MG TAB PO PRN (03:08)
[2022-04-25] MEDS ORDERED: GLUCOSE 10 TAB/TUBE PO PRN (03:08)
[2022-04-25] MEDS ORDERED: POLYETHYLENE (MIRALAX) 17 GM PACK PO PRN (03:08)
[2022-04-25] MEDS ORDERED: CARBOHYDRATES FOR HYPOGLYCEMIA PO PRN (03:08)
[2022-04-25] MEDS ORDERED: GLUCAGON FOR INJ 1 MG VIAL SQ PRN (03:08)
[2022-04-25] MEDS ORDERED: NITROGLYCERIN SL 0.4 MG/TAB TAB SL PRN (03:08)
--- NOTE | 2022-04-25 04:21 | History and Physical Report ---
DATE OF ADMISSION: 04/25/2022 CHIEF COMPLAINT: Hypoglycemia. HISTORY OF PRESENT ILLNESS: A 76-year-old male with past medical history significant for type 2 diabetes, hyperlipidemia, hypertension, morbid obesity, stage III chronic kidney disease, BPH, history of psoriasis, presents with accidental taking of NovoLog instead of Lantus. This happened few times in the past. The patient says this happened because he watched TV and went to sleep and he woke up feeling groggy and took wrong insulin, instead of Lantus 45 units he took NovoLog 45 units and when he realized this, he immediately came to the hospital, given 2 amps of dextrose. Sugar when he came in were 59. Currently, resting comfortably, hemodynamically stable and he is eating okay. Denies any chest pain, no blurred visions, no runny nose, no sore throat, no cough, no shortness of breath, no nausea, no abdominal pain. Normal bowel and bladder movements. ALLERGIES: No known drug allergies. PAST MEDICAL HISTORY: As mentioned above. PAST SURGICAL HISTORY: Colonoscopy, lasering cataract, appendectomy, tonsillectomy, adenoidectomy, revision of ankle joint bilaterally, revision of scrotum, umbilical hernia repair. MEDICATIONS: The patient is on vitamin C daily, aspirin 81 mg p.o. daily, atorvastatin 40 mg p.o. daily, vitamin D 1250 mcg p.o. daily, finasteride 5 mg p.o. daily, NovoLog 12 units a.m. and 20 units with lunch and 32 units p.m., Lantus 50 units p.m. invokana 100 mg p.o. a.m., losartan 50 mg p.o. daily, multivitamins 1 tablet p.o. daily, Flomax 0.4 mg p.o. daily, Trulicity 1.5 mg subcutaneous weekly. FAMILY HISTORY: Significant for father had diabetes, renal failure, heart failure. Paternal grandfather had heart disorder. SOCIAL HISTORY: . No smoking, alcohol rare, no drug use. REVIEW OF SYSTEMS: As per HPI. Rest of review of systems is negative. PHYSICAL EXAMINATION: GENERAL: The patient is morbidly obese, not in acute distress. VITAL SIGNS: Temperature 37.2, pulse 82, respiratory rate 20, blood pressure 140/105, oxygen 98% on room air. HEENT: Pupils equal, round and reactive to light. Oral mucosa moist. NECK: No JVD or neck masses. CARDIOVASCULAR: S1 and S2 heard. Regular rate and rhythm. No murmur, no gallop. RESPIRATORY SYSTEM: Normal AP diameter. No accessory muscle use. No wheezing, no crackles. ABDOMEN: Soft, bowel sounds present, nontender, no distention. CENTRAL NERVOUS SYSTEM: Alert and oriented. Speech is clear. No facial droop. Obeys simple commands. Moves extremities. EXTREMITIES: No lower extremity edema present, no erythema seen. LABORATORY DATA: WBC 6.9, hemoglobin 14.4, hematocrit 42.2, platelets 156. Sodium 138, potassium 3.8, chloride 106, bicarbonate 25, BUN 17, creatinine 1.06, serum glucose 59 , total bilirubin 0.7, AST 24, ALT 23, alkaline phosphatase 56, lipase 29. SARS-CoV-2 rapid test negative. ASSESSMENT AND PLAN: This 76-year-old male presents with accidental taking of NovoLog instead of Lantus and presents with hypoglycemia. 1. Hypoglycemia. The patient took accidentally NovoLog 45 units instead of Lantus. Got dextrose. We will monitor in the hospital. Diabetic teaching. Hold insulin currently until the patient improves, diabetic teaching. The patient has similar episodes in the past. 2. Hypertension: Continue losartan. Will monitor the blood pressure. 3. Hyperlipidemia, on statin. 4. Benign prostatic hyperplasia. The patient on finasteride and Flomax. Monitor for any urinary retention. 5. Deep venous thrombosis prophylaxis: Lovenox. DISPOSITION: Observation in the [facility]. Expect to discharge home and follow with family doctor. Level 1 full code. Job ID: [id number] [employer]
[2022-04-25 07:14] LABS: Basophils # (auto) 0.03 K/uL (0-0.2); Basophils % (auto) 0.6 %; Eosinophils # (auto) 0.27 K/uL (0-0.50); Eosinophils % (auto) 5.1 %; Hematocrit (blood only) 42.6 % (42.0-52.0); Hemoglobin 14.3 g/dl (14.0-18.0); Immature Granulocytes # (auto) 0.02 K/uL (0.01-0.20); Immature Granulocytes % (auto) 0.4 %; Lymphocytes # (auto) 0.98 K/uL (1.2-3.4); Lymphocytes % (auto) 18.6 %; Mean Corpuscular Hemoglobin 30.8 pg (25.0-34.0); Mean Corpuscular Hgb Conc 33.6 g/dL (32.0-36.0); Mean Corpuscular Volume 91.6 fL (80.0-100.0); Mean Platelet Volume 9.6 fL (9.4-12.4); Monocytes # (auto) 0.47 K/uL (0.11-0.59); Monocytes % (auto) 8.9 %; Neutrophils # (auto) 3.51 K/uL (1.40-6.50); Neutrophils % (auto) 66.4 %; Platelet Count 155 K/uL (130-400); RDW Coefficient of Variation 13.2 % (11.5-14.5); RDW Standard Deviation 44.3 fL (36.4-46.3); Red Blood Count 4.65 M/uL (4.70-6.10); White Blood Count 5.28 K/ul (4.8-10.8)
[2022-04-25 07:30] LABS: BUN Creatinine Ratio 15.5 (10-20); Calcium 8.5 mg/dl (8.5-10.1); Creatinine Clr Calc Pharmacy 63.6 ml/min; Est GFR (African American) 74.7 ml/min; Est GFR (Non-African American) 64.4 ml/min; Magnesium 1.9 mg/dl (1.7-2.4); Potassium 4.4 mmol/L (3.5-5.1)
[2022-04-25 08:20] LABS: Estimated Average Glucose 111 mg/dl; Hemoglobin A1C 5.5 % (4.5-5.6)
[2022-04-25] MEDS ORDERED: LOSARTAN POTASSIUM 50 MG TAB PO SCH (09:00)
[2022-04-25] MEDS ORDERED: ASPIRIN 81 MG ECTAB PO SCH (09:00)
[2022-04-25] MEDS ORDERED: ENOXAPARIN INJ 40 MG/0.4 ML SYR SQ SCH (09:00)
[2022-04-25] MEDS ORDERED: MULTIVITAMIN TAB PO SCH (09:00)
[2022-04-25] MEDS ORDERED: FINASTERIDE 5 MG TAB PO SCH (09:00)
[2022-04-25] MEDS ORDERED: ATORVASTATIN 40 MG TAB PO SCH (09:00)
--- NOTE | 2022-04-25 13:19 | Discharge Summary ---
Date of Service April 25, 2022 Admission HPI Per Admitting Provider A 76-year-old male with past medical history significant for type 2 diabetes, hyperlipidemia, hypertension, morbid obesity, stage III chronic kidney disease, BPH, history of psoriasis, presents with accidental taking of NovoLog instead of Lantus. This happened few times in the past. The patient says this happened because he watched TV and went to sleep and he woke up feeling groggy and took wrong insulin, instead of Lantus 45 units he took NovoLog 45 units and when he realized this, he immediately came to the hospital, given 2 amps of dextrose. Sugar when he came in were 59. Currently, resting comfortably, hemodynamically stable and he is eating okay. Denies any chest pain, no blurred visions, no runny nose, no sore throat, no cough, no shortness of breath, no nausea, no abdominal pain. Normal bowel and bladder movements. Admission Exam Per Admitting Provider GENERAL: The patient is morbidly obese, not in acute distress. VITAL SIGNS: Temperature 37.2, pulse 82, respiratory rate 20, blood pressure 140/105, oxygen 98% on room air. HEENT: Pupils equal, round and reactive to light. Oral mucosa moist. NECK: No JVD or neck masses. CARDIOVASCULAR: S1 and S2 heard. Regular rate and rhythm. No murmur, no gallop. RESPIRATORY SYSTEM: Normal AP diameter. No accessory muscle use. No wheezing, no crackles. ABDOMEN: Soft, bowel sounds present, nontender, no distention. CENTRAL NERVOUS SYSTEM: Alert and oriented. Speech is clear. No facial droop. Obeys simple commands. Moves extremities. EXTREMITIES: No lower extremity edema present, no erythema seen. Principal Diagnosis Hypoglycemia Discharge Exam Constitutional: WD/WN, vitals as above, NAD, sitting up in bed, pleasant, conversing easily Respiratory: normal respiratory effort, lungs clear to auscultation, no wheeze, rales, rhonchi. Normal insp/exp effort, no accessory muscle use Cardiovascular: RRR, no murmur, no edema Vessels: no JVD or carotid bruit Chest: normal inspection of chest Abdomen: normal bowel sounds, soft, nontender, no hepatosplenomegaly Musculoskeletal: no cyanosis or clubbing, extremities motor strength 5/5 Skin: no rashes, warm and dry normal turgor Neurologic: PERRL, EOMI, accommodation nl, no face palsy, no dysarthria CN's II- XI intact bilaterally and moves all extremities Psychiatric: A+Ox3, euthymic affect Lymphatic: no cervical or axillary lymphadenopathy : deferred Discharge Data Allergies Allergy/AdvReac Type Severity Reaction Status Date / Time No Known Allergies AdvReac Unknown Verified 04/25/22 02:14 Consultations 04/25/22 01:04 ED Decision to Admit Stat Hospital Course (1) Hypoglycemia: (2) Insulin reaction due to improper use of drug: Plan 76-year-old male with past medical history significant for type 2 diabetes, hyperlipidemia, hypertension, morbid obesity, stage III chronic kidney disease, BPH, history of psoriasis, presents with accidental taking of NovoLog instead of Lantus. He took 45 units of NovoLog instead of taking Lantus. He came to the ED immediately after he realized his mistake. His blood glucose on admission was 59 g/ DL. He was treated with dextrose and was admitted to telemetry floor for closer monitoring. His A1c was found to be 5.5%. Patient has multiple ED visits and hospitalization due to similar issue. Diabetic education was given to him. Extensive discussion was done with him as well. For his age and comorbid condition, the goal A1c is around 7-7.5%. Patient's NovoLog was discontinued. Patient's Lantus was decreased to 30 units at night. Other antidiabetic medication were continued. Patient to monitor his blood glucose on Lantus and see his primary care doctor and skate boarder. Total Time Total Time Spent Total Time Spent (In Minutes): 45 Total Time Includes: Examination of the Patient, Discharge Planning, Medication Reconciliation, Communication With Other Providers and Other Discharge Plan Discharge Items Patient Disposition: Home - Self-Care Reason For Visit: HYPOGLYCEMIA Discharge Diagnosis: Hyperglycemia secondary to inadvertent use of insulin Activity: Resume your previous activity Non-emergency contact: Primary Care Provider Call non-emergency contact if: you have any medication questions and your symptoms worsen Follow-up/Referrals: Shady Ross DO [Primary Care Provider] - (Date & Time 04/28/2022 1:00 PM Provider Vincent Zambrano DO Department Family [facility] ) Diet: Carb Consistent or DM2 Addtl Attending Provider Instructions: You were admitted to the hospital with low blood glucose. Please follow the following recommendation regarding your insulin regimen: 1) Stop taking NovoLog. 2) Decrease Lantus to 30 units at night. Your HbA1c is 5.5%. The acceptable range for A1c for your age and comorbid condition is 7% to 7.5%. Please document your blood glucose level during fasting and before mealtime and take it at to you primary care doctor. NovoLog can be restarted later by your doctor if your blood glucose continues to remain high ( Greater than 140) An appointment will be set up for review with your primary care doctor later this week. Pending Studies at Discharge: No Stand-Alone Forms: My [facility], Smoking Cessation Medications and DC Order Prescriptions: Continued ergocalciferol (vitamin D2) 1,250 mcg (50,000 unit) capsule 1,250 mcg PO MONTHLY Qty: 12 0RF Rx Instructions: 15 of each month tamsulosin [Flomax] 0.4 mg capsule 0.4 mg PO PM Qty: 90 3RF atorvastatin 40 mg tablet 40 mg PO DAILY losartan 50 mg tablet 50 mg PO QAM ascorbic acid (vitamin C) [Vitamin C] 1,000 mg Tablet 0 mg PO DAILY Invokana 100 mg Tablet 100 mg PO QAM multivitamin [Multiple Vitamins] Tablet 1 tab PO DAILY aspirin [Luis Low Dose Aspirin] 81 mg Tablet,Delayed Release (Dr/Ec) 81 mg PO DAILY finasteride 5 mg tablet 5 mg PO QAM Trulicity 1.5 mg/0.5 mL pen injector 1.5 mg SUBCUT WK Rx Instructions: take this med every Monday, sometimes varies. Changed Lantus U-100 Insulin 100 unit/mL solution 30 unit SUBCUT PM Qty: 10 0RF Discontinued insulin aspart U-100 [Novolog PenFill U-100 Insulin] 100 unit/mL Cartridge 12 unit SUBCUT QAM insulin aspart U-100 [Novolog PenFill U-100 Insulin] 100 unit/mL Cartridge 20 unit SUBCUT QDL insulin aspart U-100 [Novolog PenFill U-100 Insulin] 100 unit/mL Cartridge 22 unit SUBCUT PM Discharge Orders: Discharge Order (Routine); Ordered 04/25/22 Ordered By: Too Rodas Admission Data Admit Date/Time: 04/25/22 02:35 Attending Provider: Too Rodas Admit Provider: Giancarlo Worthy Primary Care Provider: Shady Ross Other Providers: Giancarlo Worthy
[2022-04-25] MEDS ORDERED: TAMSULOSIN HCL 0.4 MG CAP PO SCH (21:00)
[2022-05-21] MEDS ORDERED: ERGOCALCIFEROL 50,000 UNITS 1250 MCG CAP PO SCH (09:00)
== END 2022-04-25 14:20 | disposition home or self-care (01) ==
LOC: ED 23:27 → 2N 23:27
DX: N40.0 Benign prostatic hyperplasia without lower urinary tract symptoms; Z79.4 Long term (current) use of insulin; I12.9 Hypertensive chronic kidney disease with stage 1 through stage 4 chronic kidney disease, or unspecified chronic kidney disease; T38.3X1A Poisoning by insulin and oral hypoglycemic [antidiabetic] drugs, accidental (unintentional), initial encounter; Z79.82 Long term (current) use of aspirin; N18.30 Chronic kidney disease, stage 3 unspecified; E66.01 Morbid (severe) obesity due to excess calories; Z68.39 Body mass index [BMI] 39.0-39.9, adult; E16.2 Hypoglycemia, unspecified; E11.22 Type 2 diabetes mellitus with diabetic chronic kidney disease; E78.5 Hyperlipidemia, unspecified

== ENCOUNTER 2022-05-31 22:01 | Inpatient (IN) ==
[2022-05-31 23:11] LABS: BUN Creatinine Ratio 23.9 (10-20); Calcium 9.6 mg/dl (8.6-10.3); Est GFR (African American) 75.5 ml/min; Est GFR (Non-African American) 65.1 ml/min; Potassium 3.9 mmol/L (3.5-5.1)
--- NOTE | 2022-05-31 23:24 | Emergency Department Note ---
History of Present Illness General Chief complaint: Hypoglycemia Stated complaint: ACCIDENTAL OVERDOSE Time Seen by Provider: 05/31/22 22:13 History of Present Illness Provider complaint: Accidental overdose Onset (ago): minute(s) (40) 76-year-old male presents emergency department after accidentally taking 41 units of NovoLog today instead of 41 units of the Lantus. Patient states he has made this mistake many times in the past. He reports no suicidal or homicidal intentions he states he was his accident. He states this occurred 40 minutes prior to arrival. Patient reports no falls or traumas. No chest pain difficulty breathing. No nausea or vomiting. Home Medications Medication Instructions Recorded Confirmed Type ascorbic acid (vitamin C) 1,000 mg 2,000 mg PO DAILY 11/22/17 05/31/22 History tablet (Vitamin C) canagliflozin 100 mg tablet 100 mg PO QAM 11/22/17 05/31/22 History (Invokana) atorvastatin 40 mg tablet 40 mg PO DAILY 08/27/18 05/31/22 History losartan 50 mg tablet 50 mg PO QAM 09/06/18 05/31/22 History aspirin 81 mg tablet,delayed 81 mg PO DAILY 01/15/21 05/31/22 History release (Luis Low Dose Aspirin) multivitamin (Multiple Vitamins 1 tab PO DAILY 01/15/21 05/31/22 History tablet) ergocalciferol (vitamin D2) 1,250 1,250 mcg PO MONTHLY #12 caps 08/03/21 05/31/22 Rx mcg (50,000 unit) capsule dulaglutide 1.5 mg/0.5 mL 1.5 mg subcut WK 01/14/22 05/31/22 History subcutaneous pen injector (Trulicity) finasteride 5 mg tablet 5 mg PO QAM #90 tabs 05/16/22 05/31/22 Rx tamsulosin 0.4 mg capsule (Flomax) 0.4 mg PO PM #90 caps 05/16/22 05/31/22 Rx insulin aspart U-100 100 unit/mL 1 sliding scale dose subcut 05/31/22 05/31/22 History (3 mL) subcutaneous pen (Novolog USEASDIRECTD FlexPen U-100 Insulin aspart) insulin glargine 100 unit/mL 0 unit subcut PM 05/31/22 05/31/22 History subcutaneous solution (Lantus U-100 Insulin) Allergies Allergy/AdvReac Type Severity Reaction Status Date / Time No Known Allergies AdvReac Unknown Verified 05/31/22 22:52 Past Med/Surg History Medical History Acute urinary retention Carpal tunnel syndrome of left wrist Cervical disc disease Chronic kidney disease (CKD), stage II (mild) CKD stage 3 secondary to diabetes Diabetes mellitus Enlarged prostate without lower urinary tract symptoms (luts) History of broken leg Hypertension Hypoglycemia Lumbar spondylosis Obesity Polyneuropathy PSA elevation Trochanteric bursitis, right hip Vitamin D deficiency Surgical History S/P appendectomy Family History Other Family history non-contributory Social History Smoking Status: Never smoker Second Hand Exposure: No; Hx Alcohol Use: No Hx Substance Use: No Preferred Language: Hebrew Communication Ability: Effective Air Director Required: No Beliefs That Will Affect Care: None marital status: marital status details: Current Living Situation: Alone current occupational status: retired 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 Assistive Devices: Glasses Physical Exam Vital Signs Vital Signs - 24 hr 05/31/22 22:06 05/31/22 22:55 05/31/22 22:59 Temperature 36.6 C Temperature Source Temporal Artery Scan Pulse Rate 84 Pulse Rate [Right Finger] 80 Pulse Rhythm [Right Finger] Regular Pulse Strength [Right Finger] Normal Respiratory Rate 18 18 Respiratory Effort / Characteristics Non-Labored Spontaneous Non-Labored Spontaneous Respiratory Depth Normal Normal Respiratory Pattern Regular Blood Pressure 172/78 H Blood Pressure [Right Arm] Blood Pressure Mean 109 Blood Pressure Mean [Right Arm] Blood Pressure Position Sitting Pulse Oximetry 96 94 93 Oxygen Delivery Method Room Air Room Air Room Air Sepsis Recent Fever Within 48 Hours No Sepsis New/Unexplained Change in Mental Status No Sepsis Action Taken by Nursing No Action Required 05/31/22 23:04 05/31/22 23:39 05/31/22 23:44 Temperature Temperature Source Pulse Rate 76 138 H Pulse Rate [Right Finger] 80 Pulse Rhythm [Right Finger] Pulse Strength [Right Finger] Respiratory Rate 16 Respiratory Effort / Characteristics Respiratory Depth Respiratory Pattern Blood Pressure Blood Pressure [Right Arm] 161/83 H Blood Pressure Mean Blood Pressure Mean [Right Arm] 109 Blood Pressure Position Pulse Oximetry 95 Oxygen Delivery Method Room Air Sepsis Recent Fever Within 48 Hours Sepsis New/Unexplained Change in Mental Status Sepsis Action Taken by Nursing Physical Exam GENERAL: oriented to person, place, and time. appears well-developed and well- nourished. HENT: Exam performed. - Head: Normocephalic and atraumatic. EYES: Conjunctivae and EOM are normal. Right eye exhibits no discharge. Left eye exhibits no discharge. No scleral icterus. NECK: Normal range of motion. Neck supple. No JVD present. CV: Normal rate, regular rhythm, normal heart sounds and intact distal pulses. There is no peripheral edema. Palpable radial pulses bue. PULM/CHEST: Effort normal and breath sounds normal. No respiratory distress. No stridor. no wheezes. no rales. NEURO: Motor and sensation grossly intact. SKIN: Skin is warm and dry. He is not diaphoretic. PSYCH: normal mood and affect. Behavior is normal. Judgment and thought content normal. Course Course 2213: The patient was evaluated in room C5. A complete history and physical exam was performed Cardiac monitoring: An order was placed for continuous cardiac monitoring. The monitor shows a rate of 70 with sinus rhythm interpreted by me 2340: Nursing informed me that the patient had a 10 beat run of V. tach on the monitor. I went to reassess the patient and the patient reported he did not fee l any chest pain or difficulty breathing but felt odd. His blood sugars and electrolytes are within normal limits. Additional labs ordered for the patient including magnesium and troponin we will plan on admitting the patient to the hospital given his run of V. tach. Patient tolerating p.o. without any difficulties. 0022: Vital signs stable. Patient has had no more episodes of V. tach. Labs and imaging within normal limits however given the patient's run of V. tach we will admit the patient to the [facility] hospitalist team for further observation evaluation. Dr. Gary's team has been notified. Administered Medications Magnesium Sulfate/Dextrose (Magnesium Sulfate / D5w) 1 gm in 100 mls @ 50 mls/hr IV ONE ONE Stop: 06/01/22 02:30 Last Admin: 06/01/22 00:50 Dose: 50 mls/hr Documented By: DML Discontinued Medications Potassium Chloride (Potassium Chloride Crtab 20 Meq Tabcr) 20 meq PO NOW STA Stop: 06/01/22 00:32 Last Admin: 06/01/22 00:49 Dose: 20 meq Documented By: STEPHANIE Medical Decision Making Laboratory Data Attestation: I reviewed the patient's lab results. 05/31/22 22:26 Lab Results 05/31/22 05/31/22 05/31/22 Range/Units 22:09 22:18 22:26 WBC (4.8-10.8) K/ul RBC (4.70-6.10) M/uL Hgb (14.0-18.0) g/dl Hct (42.0-52.0) % MCV (80.0-100.0) fL MCH (25.0-34.0) pg MCHC (32.0-36.0) g/dL RDW Std Deviation (36.4-46.3) fL RDW Coeff of Ashok (11.5-14.5) % Plt Count (130-400) K/uL MPV (9.4-12.4) fL Immature Gran % (Auto) % Neut % (Auto) % Lymph % (Auto) % Morrow % (Auto) % Eos % (Auto) % Baso % (Auto) % Neut # (Auto) (1.40-6.50) K/uL Lymph # (Auto) (1.2-3.4) K/uL Morrow # (Auto) (0.11-0.59) K/uL Eos # (Auto) (0-0.50) K/uL Baso # (Auto) (0-0.2) K/uL Immature Gran # (Auto) (0.01-0.20) K/uL Sodium 135 L (136-145) mmol/L Potassium 3.9 (3.5-5.1) mmol/L Chloride 105 (98-107) mmol/L Carbon Dioxide 27 (21-32) mmol/L Anion Gap 3 (3-11) BUN 26 H (6-23) mg/dl Creatinine 1.09 (0.6-1.4) mg/dl Est Cr Clr Drug Dosing 64.0 ml/min Est GFR ( Amer) 75.5 ml/min Est GFR (Non-Af Amer) 65.1 ml/min BUN/Creatinine Ratio 23.9 H (10-20) Glucose 102 H (70-99(Fasting)) mg/dl POC Glucose 113 H 80 (70-99) mg/dl Calcium 9.6 (8.6-10.3) mg/dl Magnesium (1.7-2.4) mg/dl Troponin I High Sens (0-20) pg/ml Lipase (11-82) U/L 05/31/22 05/31/22 05/31/22 Range/Units 22:26 22:26 23:02 WBC 6.03 (4.8-10.8) K/ul RBC 4.96 (4.70-6.10) M/uL Hgb 15.4 (14.0-18.0) g/dl Hct 45.1 (42.0-52.0) % MCV 90.9 (80.0-100.0) fL MCH 31.0 (25.0-34.0) pg MCHC 34.1 (32.0-36.0) g/dL RDW Std Deviation 45.1 (36.4-46.3) fL RDW Coeff of Ashok 13.4 (11.5-14.5) % Plt Count 166 (130-400) K/uL MPV 9.8 (9.4-12.4) fL Immature Gran % (Auto) 0.2 % Neut % (Auto) 59.1 % Lymph % (Auto) 23.7 % Morrow % (Auto) 8.6 % Eos % (Auto) 7.6 % Baso % (Auto) 0.8 % Neut # (Auto) 3.56 (1.40-6.50) K/uL Lymph # (Auto) 1.43 (1.2-3.4) K/uL Morrow # (Auto) 0.52 (0.11-0.59) K/uL Eos # (Auto) 0.46 (0-0.50) K/uL Baso # (Auto) 0.05 (0-0.2) K/uL Immature Gran # (Auto) 0.01 (0.01-0.20) K/uL Sodium (136-145) mmol/L Potassium (3.5-5.1) mmol/L Chloride (98-107) mmol/L Carbon Dioxide (21-32) mmol/L Anion Gap (3-11) BUN (6-23) mg/dl Creatinine (0.6-1.4) mg/dl Est Cr Clr Drug Dosing ml/min Est GFR ( Amer) ml/min Est GFR (Non-Af Amer) ml/min BUN/Creatinine Ratio (10-20) Glucose (70-99(Fasting)) mg/dl POC Glucose 103 H (70-99) mg/dl Calcium (8.6-10.3) mg/dl Magnesium 1.9 (1.7-2.4) mg/dl Troponin I High Sens 11.4 (0-20) pg/ml Lipase 39 (11-82) U/L 05/31/22 Range/Units 23:39 WBC (4.8-10.8) K/ul RBC (4.70-6.10) M/uL Hgb (14.0-18.0) g/dl Hct (42.0-52.0) % MCV (80.0-100.0) fL MCH (25.0-34.0) pg MCHC (32.0-36.0) g/dL RDW Std Deviation (36.4-46.3) fL RDW Coeff of Ashok (11.5-14.5) % Plt Count (130-400) K/uL MPV (9.4-12.4) fL Immature Gran % (Auto) % Neut % (Auto) % Lymph % (Auto) % Morrow % (Auto) % Eos % (Auto) % Baso % (Auto) % Neut # (Auto) (1.40-6.50) K/uL Lymph # (Auto) (1.2-3.4) K/uL Morrow # (Auto) (0.11-0.59) K/uL Eos # (Auto) (0-0.50) K/uL Baso # (Auto) (0-0.2) K/uL Immature Gran # (Auto) (0.01-0.20) K/uL Sodium (136-145) mmol/L Potassium (3.5-5.1) mmol/L Chloride (98-107) mmol/L Carbon Dioxide (21-32) mmol/L Anion Gap (3-11) BUN (6-23) mg/dl Creatinine (0.6-1.4) mg/dl Est Cr Clr Drug Dosing ml/min Est GFR ( Amer) ml/min Est GFR (Non-Af Amer) ml/min BUN/Creatinine Ratio (10-20) Glucose (70-99(Fasting)) mg/dl POC Glucose 104 H (70-99) mg/dl Calcium (8.6-10.3) mg/dl Magnesium (1.7-2.4) mg/dl Troponin I High Sens (0-20) pg/ml Lipase (11-82) U/L Imaging Data Attestation: I personally reviewed and interpreted this imaging study as follows: My Impression: Chest x-ray negative. Airway clear. No pneumothorax. No consolidation. No cardiomegaly or cephalization.. No free air under the diaphragm. No fractures of the skeletal structures. ECG Data Attestation: I personally reviewed and interpreted this ECG as follows: Indication: + palpitations Rate (beats per minute): 77 Rhythm: + normal sinus ECG Intervals/blocks: + Normal QRS, + Normal NC and + Normal QT-c ECG ST segments: + Normal ST segments MDM Narrative 2213: The patient was evaluated in room C5. A complete history and physical exam was performed Cardiac monitoring: An order was placed for continuous cardiac monitoring. The monitor shows a rate of 70 with sinus rhythm interpreted by me 2340: Nursing informed me that the patient had a 10 beat run of V. tach on the monitor. I went to reassess the patient and the patient reported he did not feel any chest pain or difficulty breathing but felt odd. His blood sugars and electrolytes are within normal limits. Additional labs ordered for the patient including magnesium and troponin we will plan on admitting the patient to the hospital given his run of V. tach. Patient tolerating p.o. without any difficulties. 0022: Vital signs stable. Patient has had no more episodes of V. tach. Labs and imaging within normal limits however given the patient's run of V. tach [facility] Dr. Gary's team has been notified. Impression & Plan V tach, Accidental overdose of insulin Discharge Plan Visit Data Chief Complaint: Hypoglycemia Stated Complaint: ACCIDENTAL OVERDOSE ED Provider: Antonio Fletcher Discharge Problem: V tach, Accidental overdose of insulin Patient Disposition: Admitted As Inpatient Forms Stand Alone Forms: My [facility] Prescriptions Prescriptions: No Action ergocalciferol (vitamin D2) 1,250 mcg (50,000 unit) capsule 1,250 mcg PO MONTHLY Qty: 12 0RF Rx Instructions: 15th of each month tamsulosin [Flomax] 0.4 mg capsule 0.4 mg PO PM Qty: 90 3RF finasteride 5 mg tablet 5 mg PO QAM Qty: 90 3RF atorvastatin 40 mg tablet 40 mg PO DAILY losartan 50 mg tablet 50 mg PO QAM ascorbic acid (vitamin C) [Vitamin C] 1,000 mg Tablet 2,000 mg PO DAILY Invokana 100 mg Tablet 100 mg PO QAM multivitamin [Multiple Vitamins] Tablet 1 tab PO DAILY aspirin [Luis Low Dose Aspirin] 81 mg Tablet,Delayed Release (Dr/Ec) 81 mg PO DAILY Trulicity 1.5 mg/0.5 mL pen injector 1.5 mg SUBCUT WK Rx Instructions: take this med every TUESDAYS, sometimes varies. insulin aspart U-100 [Novolog FlexPen U-100 Insulin] 100 unit/mL (3 mL) Insulin Pen 1 sliding scale dose SUBCUT USEASDIRECTD Rx Instructions: PER [facility] 04/23/22--12 UNITS BREAKFAST, 20 UNITS LUNCH, & 22 UNITS DINNER. insulin glargine [Lantus U-100 Insulin] 100 unit/mL solution 0 unit SUBCUT PM Rx Instructions: PER [facility] 60 UNITS HS. Referrals Referrals: Shady Ross DO [Primary Care Provider] -
[2022-06-01 00:10] LABS: Magnesium 1.9 mg/dl (1.7-2.4)
[2022-06-01 00:11] LABS: Basophils # (auto) 0.05 K/uL (0-0.2); Basophils % (auto) 0.8 %; Eosinophils # (auto) 0.46 K/uL (0-0.50); Eosinophils % (auto) 7.6 %; Hematocrit (blood only) 45.1 % (42.0-52.0); Hemoglobin 15.4 g/dl (14.0-18.0); Immature Granulocytes # (auto) 0.01 K/uL (0.01-0.20); Immature Granulocytes % (auto) 0.2 %; Lymphocytes # (auto) 1.43 K/uL (1.2-3.4); Lymphocytes % (auto) 23.7 %; Mean Corpuscular Hgb Conc 34.1 g/dL (32.0-36.0); Mean Corpuscular Volume 90.9 fL (80.0-100.0); Mean Platelet Volume 9.8 fL (9.4-12.4); Monocytes # (auto) 0.52 K/uL (0.11-0.59); Monocytes % (auto) 8.6 %; Neutrophils # (auto) 3.56 K/uL (1.40-6.50); Neutrophils % (auto) 59.1 %; Platelet Count 166 K/uL (130-400); RDW Coefficient of Variation 13.4 % (11.5-14.5); RDW Standard Deviation 45.1 fL (36.4-46.3); Red Blood Count 4.96 M/uL (4.70-6.10); White Blood Count 6.03 K/ul (4.8-10.8)
[2022-06-01 00:17] LABS: Troponin I High Sensitivity 11.4 pg/ml (0-20)
[2022-06-01] MEDS ORDERED: POTASSIUM CHLORIDE CRTAB 20 MEQ TABCR PO STA (00:31)
[2022-06-01] MEDS ORDERED: MAGNESIUM SULFATE / D5W 1 GM/100 ML BAG IV ONE (00:31)
[2022-06-01] MEDS ORDERED: LACTATED RINGER'S 1,000 ML IV ONE (00:44)
[2022-06-01] MEDS ORDERED: LOSARTAN POTASSIUM 50 MG TAB PO STA (00:44)
[2022-06-01 01:22] LABS: Thyroid Stimulating Hormone 5.39 uIu/ml (0.300-4.500)
--- NOTE | 2022-06-01 01:58 | History & Physical Report ---
Date of Service June 01, 2022 Assessment & Plan (1) NSVT (nonsustained ventricular tachycardia): Plan: 10 beat run of V. tach at the ER for consulting for hypoglycemia Patient asymptomatic during episode Hypoglycemia secondary to wrongful insulin preparation administration secondary to patient inattention Recurrent ER visits for issue DM2 insulin requiring, well-controlled as of recent hemoglobin A1c of 5.3 last month HTN, slightly elevated hyperlipidemia on statin Rx hx BPH, stable on regimen OBS PCU Supplement electrolytes, maintain serum potassium at least 4, serum magnesium at least 2 Initiate beta-kirstie if with recurrence of NSVT despite adequate electrolyte levels. TTE Re: NSVT Cardiology consult if with recurrent episodes or abnormal echo Titrate home losartan Hypoglycemia protocol Appropriate to hold home insulin for now Initiate ISS once BSG > 140 DVT prophylaxis. Lovenox subcu Full code Text document was generated using [employer] voice recognition software. It may contain grammatical or spelling errors. Kindly contact undersigned for clarification of any documentation item in question. History of Present Illness Chief Complaint: Wrong insulin taken Primary Care Provider: Shady Ross DO History obtained from patient and records. Medical history significant for HTN, hyperlipidemia, DM2 insulin requiring BPH, history urolithiasis. Last confinement February 2022 for hyperglycemia secondary to administration of w sydnee insulin preparation. Recurrent ER visits for problem. Last night, patient woke up groggy and administered himself his nighttime long- acting insulin. He later realized that he had injected short acting preparation. Has happened many times before. Patient denies chest pain, shortness of breath, syncope, abdominal pain. He consulted ER to be checked out. 10 beat run of NSVT noted on the monitor. Patient asymptomatic at time of event. 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 Allergies Allergy/AdvReac Type Severity Reaction Status Date / Time No Known Allergies AdvReac Unknown Verified 05/31/22 22:52 Home Medications Medication Instructions Recorded Confirmed Type ascorbic acid (vitamin C) 1,000 mg 2,000 mg PO DAILY 11/22/17 05/31/22 History tablet (Vitamin C) canagliflozin 100 mg tablet 100 mg PO QAM 11/22/17 05/31/22 History (Invokana) atorvastatin 40 mg tablet 40 mg PO DAILY 08/27/18 05/31/22 History losartan 50 mg tablet 50 mg PO QAM 09/06/18 05/31/22 History aspirin 81 mg tablet,delayed 81 mg PO DAILY 01/15/21 05/31/22 History release (Luis Low Dose Aspirin) multivitamin (Multiple Vitamins 1 tab PO DAILY 01/15/21 05/31/22 History tablet) ergocalciferol (vitamin D2) 1,250 1,250 mcg PO MONTHLY #12 caps 08/03/21 05/31/22 Rx mcg (50,000 unit) capsule dulaglutide 1.5 mg/0.5 mL 1.5 mg subcut WK 01/14/22 05/31/22 History subcutaneous pen injector (Trulicity) finasteride 5 mg tablet 5 mg PO QAM #90 tabs 05/16/22 05/31/22 Rx tamsulosin 0.4 mg capsule (Flomax) 0.4 mg PO PM #90 caps 05/16/22 05/31/22 Rx insulin aspart U-100 100 unit/mL 1 sliding scale dose subcut 05/31/22 05/31/22 History (3 mL) subcutaneous pen (Novolog USEASDIRECTD FlexPen U-100 Insulin aspart) insulin glargine 100 unit/mL 0 unit subcut PM 05/31/22 05/31/22 History subcutaneous solution (Lantus U-100 Insulin) Past Med/Surg History Medical History Acute urinary retention Carpal tunnel syndrome of left wrist Cervical disc disease Chronic kidney disease (CKD), stage II (mild) CKD stage 3 secondary to diabetes Diabetes mellitus Enlarged prostate without lower urinary tract symptoms (luts) History of broken leg Hypertension Hypoglycemia Lumbar spondylosis Obesity Polyneuropathy PSA elevation Trochanteric bursitis, right hip Vitamin D deficiency Surgical History S/P appendectomy Family History Other Family history non-contributory Social History Smoking Status: Never smoker Second Hand Exposure: No; Hx Alcohol Use: No Hx Substance Use: No Preferred Language: Swiss Communication Ability: Effective Network Consultant Required: No Beliefs That Will Affect Care: None marital status: marital status details: Current Living Situation: Alone current occupational status: retired 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 Assistive Devices: Glasses Review of Systems Review of Systems: As per HPI, all other systems reviewed and negative Physical Exam Physical Exam: GENERAL: Comfortable, obese, pleasant, no respiratory distress SKIN: Normal color, warm HEENT: [place] palpebral conjunctivae, no ptosis, moist buccal mucosa NECK : Supple, short neck, no tenderness CHEST : CTA, no tenderness HEART : RRR, no obvious murmurs ABDOMEN: Some distention, nontender EXTREMITIES : Minimal LE swelling, no LE tenderness, no other conspicuous deformities noted NEUROLOGIC : Coherent, no facial asymmetry, no other gross focality Results & Data Results & Data Vital Signs (Past 12 Hours) Vital Signs Temp Pulse Pulse Resp BP BP Pulse Ox 06/01/22 01:01 80 21 141/91 H 96 06/01/22 00:30 75 22 125/68 94 06/01/22 00:00 86 22 141/74 H 95 05/31/22 23:39 80 21 161/83 H 95 05/31/22 23:37 78 19 168/82 H 94 05/31/22 23:44 80 16 161/83 H 95 05/31/22 23:39 138 H 05/31/22 23:04 76 05/31/22 22:59 80 18 93 05/31/22 22:55 94 05/31/22 22:06 36.6 C 84 18 172/78 H 96 O2 Del Method 06/01/22 01:01 Room Air 06/01/22 00:30 Room Air 06/01/22 00:00 Room Air 05/31/22 23:39 Room Air 05/31/22 23:37 Room Air 05/31/22 23:44 Room Air 05/31/22 23:39 05/31/22 23:04 05/31/22 22:59 Room Air 05/31/22 22:55 Room Air 05/31/22 22:06 Room Air Laboratory Results Laboratory Results WBC 6.03 K/ul (4.8-10.8) 04/25/23 22: RBC 4.96 M/uL (4.70-6.10) 05/31/22: Hgb 15.4 g/dl (14.0-18.0) 05/31/22: Hct 45.1 % (42.0-52.0) 05/31/22: MCV 90.9 fL (80.0-100.0) 05/31/22: MCH 31.0 pg (25.0-34.0) 05/31/22: MCHC 34.1 g/dL (32.0-36.0) 05/31/22: RDW Std Deviation 45.1 fL (36.4-46.3) 05/31/22 RDW Coeff of Ashok 13.4 % (11.5-14.5) 05/31/22: Plt Count 166 K/uL (130-400) 05/31/22: MPV 9.8 fL (9.4-12.4) 05/31/22: Immature Gran % (Auto) 0.2 % 05/31/22: Neut % (Auto) 59.1 % 05/31/22: Lymph % (Auto) 23.7 % 05/31/22: Miller % (Auto) 8.6 % 05/31/22: Eos % (Auto) 7.6 % 05/31/22: Baso % (Auto) 0.8 % 05/31/22: Neut # (Auto) 3.56 K/uL (1.40-6.50) 05/31/22: Lymph # (Auto) 1.43 K/uL (1.2-3.4) 05/31/22: Miller # (Auto) 0.52 K/uL (0.11-0.59) 05/31/22: Eos # (Auto) 0.46 K/uL (0-0.50) 05/31/22: Baso # (Auto) 0.05 K/uL (0-0.2) 05/31/22: Immature Gran # (Auto) 0.01 K/uL (0.01-0.20) 05/31/22 22: Sodium 135 mmol/L (136-145) L 05/31/22 22: Potassium 3.9 mmol/L (3.5-5.1) 05/31/22 22: Chloride 105 mmol/L (98-107) 05/31/22 22: Carbon Dioxide 27 mmol/L (21-32) 05/31/22 22: Anion Gap 3 (3-11) 05/31/22 22: BUN 26 mg/dl (6-23) H 05/31/22 22: Creatinine 1.09 mg/dl (0.6-1.4) 05/31/22 22: Est Cr Clr Drug Dosing 64.0 ml/min 05/31/22 22: Est GFR ( Amer) 75.5 ml/min 05/31/22 22: Est GFR (Non-Af Amer) 65.1 ml/min 05/31/22 22: BUN/Creatinine Ratio 23.9 (10-20) H 05/31/22 22: Glucose 102 mg/dl (70-99(Fasting)) H 05/31/22 22: POC Glucose 73 mg/dl (70-99) 06/01/22 00:57 Calcium 9.6 mg/dl (8.6-10.3) 05/31/22 22: Magnesium 1.9 mg/dl (1.7-2.4) 05/31/22 22: Troponin I High Sens 11.4 pg/ml (0-20) 05/31/22 22: Lipase 39 U/L (11-82) 05/31/22 22: TSH 5.390 uIu/ml (0.300-4.500) H 05/31/22 22:26 SARS-CoV-2, RNA, NAAT NEGATIVE (NEGATIVE) 06/01/22 00:41 Diagnostic Findings Chest x-ray as per my interpretation cardiomegaly EKG as per my interpretation : Rate 75, NSR, normal axis, T wave abnormality septal leads
[2022-06-01] MEDS ORDERED: GLUCAGON FOR INJ 1 MG VIAL SQ PRN ×2 (02:03→06:51)
[2022-06-01] MEDS ORDERED: GLUCOSE 10 TAB/TUBE PO PRN ×2 (02:03→06:51)
[2022-06-01] MEDS ORDERED: CARBOHYDRATES FOR HYPOGLYCEMIA PO PRN ×2 (02:03→06:51)
[2022-06-01] MEDS ORDERED: DEXTROSE 50% 50 ML SYRINGE IV PRN ×2 (02:03→06:51)
[2022-06-01] MEDS ORDERED: GLUCOSE 40% GEL 15 GM TUBE PO PRN ×2 (02:03→06:51)
[2022-06-01 02:30] LABS: T4 Free Thyroxine 0.82 ng/dl (0.61-1.60)
[2022-06-01] MEDS ORDERED: PROMETHAZINE HCL 12.5 MG in SODIUM CHLORIDE 0.9% 50 ML IV PRN (04:02)
[2022-06-01] MEDS ORDERED: traMADol HCL 50 MG TABLET PO PRN (04:02)
[2022-06-01] MEDS ORDERED: ACETAMINOPHEN 325 MG TAB PO PRN (04:02)
[2022-06-01 06:44] LABS: Basophils # (auto) 0.05 K/uL (0-0.2); Basophils % (auto) 0.8 %; Eosinophils # (auto) 0.47 K/uL (0-0.50); Eosinophils % (auto) 7.6 %; Hematocrit (blood only) 41.7 % (42.0-52.0); Hemoglobin 14.5 g/dl (14.0-18.0); Immature Granulocytes # (auto) 0.02 K/uL (0.01-0.20); Immature Granulocytes % (auto) 0.3 %; Lymphocytes # (auto) 1.37 K/uL (1.2-3.4); Lymphocytes % (auto) 22.3 %; Mean Corpuscular Hemoglobin 31.5 pg (25.0-34.0); Mean Corpuscular Hgb Conc 34.8 g/dL (32.0-36.0); Mean Corpuscular Volume 90.7 fL (80.0-100.0); Monocytes % (auto) 11.4 %; Neutrophils # (auto) 3.54 K/uL (1.40-6.50); Neutrophils % (auto) 57.6 %; Platelet Count 163 K/uL (130-400); RDW Coefficient of Variation 13.4 % (11.5-14.5); RDW Standard Deviation 44.7 fL (36.4-46.3); White Blood Count 6.15 K/ul (4.8-10.8)
--- NOTE | 2022-06-01 07:18 | XRay Report ---
SINGLE VIEW CHEST CLINICAL HISTORY: Atypical chest pain. FINDINGS: 2 AP, portable, upright chest radiographs are compared to study dated 10/25/2016. The examin ation is degraded by portable technique and apical lordotic positioning. The heart is enlarged noting atherosclerotic calcification of the thoracic aorta. The pulmonary vasculature is noncongested. The lungs and pleural spaces are clear noting dependent atelectasis. No pneumothorax is seen. The skeleta l structures are osteopenic. The bony thorax is grossly intact. Fusion hardware is noted in the lower cervical spine. IMPRESSION: Cardiomegaly with no acute cardiopulmonary abnormality identified. ACT 112: Negative or not required by law. Electronically signed by: Ehsan Odom M.D. 06/01/2022 7:15 AM
[2022-06-01] MEDS: INSULIN ASPART PER UNIT CHARGE SC SCH ×3 (08:28→17:20)
[2022-06-01 08:42] LABS: BUN Creatinine Ratio 23.4 (10-20); Creatinine Clr Calc Pharmacy 65.7 ml/min; Est GFR (African American) 77.2 ml/min; Est GFR (Non-African American) 66.6 ml/min; Potassium 4.4 mmol/L (3.5-5.1)
[2022-06-01] MEDS ORDERED: MULTIVITAMIN TAB PO SCH (09:00)
[2022-06-01] MEDS ORDERED: ASPIRIN 81 MG ECTAB PO SCH (09:00)
[2022-06-01] MEDS ORDERED: FINASTERIDE 5 MG TAB PO SCH (09:00)
[2022-06-01] MEDS ORDERED: ATORVASTATIN 40 MG TAB PO SCH (09:00)
[2022-06-01] MEDS ORDERED: ENOXAPARIN INJ 40 MG/0.4 ML SYR SQ SCH (09:00)
--- NOTE | 2022-06-01 15:07 | Cardiology Consultation ---
Date of Consultation June 01, 2022 Assessment & Plan (1) NSVT (nonsustained ventricular tachycardia): (2) Hypertension: (3) Chronic kidney disease, stage 3 (moderate): (4) Polyneuropathy: (5) Accidental overdose of insulin: (6) Ascending aorta dilatation: Plan Patient is a 76-year-old male who presented to ER evaluation after inadvertently taking wrong dose of insulin. While on telemetry was found to have a 15 beat run of wide-complex tachycardia nonsustained and asymptomatic. No electrolyte abnormalities observed. LV systolic function normal EKG without acute findings. No prior history of cardiac symptoms tachyarrhythmias syncope or near syncope. Echocardiogram demonstrates preserved LV systolic function chronic aortic dilatation Recommendations: Heart rate and blood pressure will will allow addition of low- dose beta-kirstie would begin metoprolol succinate at 12.5 mg/day Stress nuclear imaging post discharge, 14-day Zio patch post discharge Follow-up with cardiology after above testing. Patient to report any new complaints in interim Aortic dilatation being followed yearly via primary care History of Present Illness Reason for Consultation: Nonsustained ventricular tachycardia single run Requesting Physician: Dr. Talley Attending Physician: Dominic Talley MD History of Present Illness Patient is a 76-year-old male without prior history of cardiac disease or cardiac structural abnormality with underlying medical issues of 1. Type 2 diabetes mellitus insulin requiring 2. Hypertension 3. Hyperlipidemia 4. Polyneuropathy with chronic stasis edema. 5. Aortic root and ascending aortic enlargement Patient presents this admission having sought ER evaluation after inadvertently wrong insulin. No acute hypoglycemia. While on routine telemetry in ER and 15 beat run of wide-complex tachycardia asymptomatically. No further arrhythmias since admission patient observed overnight. Currently without cardiac complaint. He denies any prior history of myocardial infarction, angina, congestive heart failure. No history of arrhythmias syncope near syncope. 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 Notes no exertional chest pain shortness of breath. Chronic stasis edema always noted. But no worsening. No acute weight loss or gain. Denies any sleep disruption awakens rested No prior history of sleep apnea or oxygen requirements. Episode in ER of arrhythmia occurred while patient awake and asymptomatic Allergies Allergy/AdvReac Type Severity Reaction Status Date / Time No Known Allergies AdvReac Unknown Verified 05/31/22 22:52 Home Medications Medication Instructions Recorded Confirmed Type ascorbic acid (vitamin C) 1,000 mg 2,000 mg PO DAILY 11/22/17 05/31/22 History tablet (Vitamin C) canagliflozin 100 mg tablet 100 mg PO QAM 11/22/17 05/31/22 History (Invokana) atorvastatin 40 mg tablet 40 mg PO DAILY 08/27/18 05/31/22 History losartan 50 mg tablet 50 mg PO QAM 09/06/18 05/31/22 History aspirin 81 mg tablet,delayed 81 mg PO DAILY 01/15/21 05/31/22 History release (Luis Low Dose Aspirin) multivitamin (Multiple Vitamins 1 tab PO DAILY 01/15/21 05/31/22 History tablet) ergocalciferol (vitamin D2) 1,250 1,250 mcg PO MONTHLY #12 caps 08/03/21 05/31/22 Rx mcg (50,000 unit) capsule dulaglutide 1.5 mg/0.5 mL 1.5 mg subcut WK 01/14/22 05/31/22 History subcutaneous pen injector (Trulicity) finasteride 5 mg tablet 5 mg PO QAM #90 tabs 05/16/22 05/31/22 Rx tamsulosin 0.4 mg capsule (Flomax) 0.4 mg PO PM #90 caps 05/16/22 05/31/22 Rx insulin aspart U-100 100 unit/mL 1 sliding scale dose subcut 05/31/22 05/31/22 History (3 mL) subcutaneous pen (Novolog USEASDIRECTD FlexPen U-100 Insulin aspart) insulin glargine 100 unit/mL 0 unit subcut PM 05/31/22 05/31/22 History subcutaneous solution (Lantus U-100 Insulin) Patient History Medical History Acute urinary retention Carpal tunnel syndrome of left wrist Cervical disc disease Chronic kidney disease (CKD), stage II (mild) CKD stage 3 secondary to diabetes Diabetes mellitus Enlarged prostate without lower urinary tract symptoms (luts) History of broken leg Hypertension Hypoglycemia Lumbar spondylosis Obesity Polyneuropathy PSA elevation Trochanteric bursitis, right hip Vitamin D deficiency Surgical History S/P appendectomy Family History Other Family history non-contributory Social History Smoking Status: Never smoker Second Hand Exposure: No; Hx Alcohol Use: No Hx Substance Use: No Preferred Language: Khmer Communication Ability: Effective Bondactor Machine Operator Required: No Beliefs That Will Affect Care: None marital status: marital status details: Current Living Situation: Alone current occupational status: retired 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 Assistive Devices: Glasses Review of Systems Review of Systems: All systems reviewed & are unremarkable except as noted in HPI & below Physical Exam Constitutional: + obese; no acute distress Eyes: PERRL, conjunctivae normal, anicteric sclerae ENMT: external ear and nose normal, oropharynx normal Neck: trachea midline, no thyromegaly Respiratory: normal respiratory effort, lungs clear to auscultation Cardiovascular: Rate/Rhythm: regular rate and regular rhythm Heart Sounds: normal S1 and normal S2; no murmur Vessels: no JVD Extremities: + edema (1-2+ right greater than left) Gastrointestinal (Abdomen): normal bowel sounds, soft, nontender, no hepatosplenomegaly Musculoskeletal: no cyanosis or clubbing, extremities motor strength 5/5 Results & Data Vital Signs (Past 12 Hours) Vital Signs Temp Pulse Resp BP Pulse Ox O2 Del Method 06/01/22 12:00 36.6 C 88 18 155/68 H 95 Room Air 06/01/22 07:33 36.5 C 76 20 160/77 H 94 Room Air 06/01/22 03:55 36.3 C L 77 18 145/90 H 96 Room Air Laboratory Results Laboratory Results - last 24 hr 05/31/22 05/31/22 05/31/22 22:09 22:18 22:26 WBC RBC Hgb Hct MCV MCH MCHC RDW Std Deviation RDW Coeff of Ashok Plt Count MPV Immature Gran % (Auto) Neut % (Auto) Lymph % (Auto) [place] % (Auto) Eos % (Auto) Baso % (Auto) Neut # (Auto) Lymph # (Auto) [place] # (Auto) Eos # (Auto) Baso # (Auto) Immature Gran # (Auto) Sodium 135 L Potassium 3.9 Chloride 105 Carbon Dioxide 27 Anion Gap 3 BUN 26 H Creatinine 1.09 Est Cr Clr Drug Dosing 64.0 Est GFR ( Amer) 75.5 Est GFR (Non-Af Amer) 65.1 BUN/Creatinine Ratio 23.9 H Glucose 102 H POC Glucose 113 H 80 Calcium 9.6 Magnesium Troponin I High Sens Lipase TSH Free T4 SARS-CoV-2, RNA, NAAT 05/31/22 05/31/22 05/31/22 22:26 22:26 22:26 WBC 6.03 RBC 4.96 Hgb 15.4 Hct 45.1 MCV 90.9 MCH 31.0 MCHC 34.1 RDW Std Deviation 45.1 RDW Coeff of Ashok 13.4 Plt Count 166 MPV 9.8 Immature Gran % (Auto) 0.2 Neut % (Auto) 59.1 Lymph % (Auto) 23.7 [place] % (Auto) 8.6 Eos % (Auto) 7.6 Baso % (Auto) 0.8 Neut # (Auto) 3.56 Lymph # (Auto) 1.43 [place]lan # (Auto) 0.52 Eos # (Auto) 0.46 Baso # (Auto) 0.05 Immature Gran # (Auto) 0.01 Sodium Potassium Chloride Carbon Dioxide Anion Gap BUN Creatinine Est Cr Clr Drug Dosing Est GFR ( Amer) Est GFR (Non-Af Amer) BUN/Creatinine Ratio Glucose POC Glucose Calcium Magnesium 1.9 Troponin I High Sens 11.4 Lipase 39 TSH 5.390 H Free T4 0.82 SARS-CoV-2, RNA, NAAT 05/31/22 05/31/22 06/01/22 23:02 23:39 00:41 WBC RBC Hgb Hct MCV MCH MCHC RDW Std Deviation RDW Coeff of Ashok Plt Count MPV Immature Gran % (Auto) Neut % (Auto) Lymph % (Auto) [place] % (Auto) Eos % (Auto) Baso % (Auto) Neut # (Auto) Lymph # (Auto) [place] # (Auto) Eos # (Auto) Baso # (Auto) Immature Gran # (Auto) Sodium Potassium Chloride Carbon Dioxide Anion Gap BUN Creatinine Est Cr Clr Drug Dosing Est GFR ( Amer) Est GFR (Non-Af Amer) BUN/Creatinine Ratio Glucose POC Glucose 103 H 104 H Calcium Magnesium Troponin I High Sens Lipase TSH Free T4 SARS-CoV-2, RNA, NAAT NEGATIVE 06/01/22 06/01/22 06/01/22 00:57 02:19 05:54 WBC 6.15 RBC 4.60 L Hgb 14.5 Hct 41.7 L MCV 90.7 MCH 31.5 MCHC 34.8 RDW Std Deviation 44.7 RDW Coeff of Ashok 13.4 Plt Count 163 MPV 10.0 Immature Gran % (Auto) 0.3 Neut % (Auto) 57.6 Lymph % (Auto) 22.3 [place] % (Auto) 11.4 Eos % (Auto) 7.6 Baso % (Auto) 0.8 Neut # (Auto) 3.54 Lymph # (Auto) 1.37 [place]lan # (Auto) 0.70 H Eos # (Auto) 0.47 Baso # (Auto) 0.05 Immature Gran # (Auto) 0.02 Sodium Potassium Chloride Carbon Dioxide Anion Gap BUN Creatinine Est Cr Clr Drug Dosing Est GFR ( Amer) Est GFR (Non-Af Amer) BUN/Creatinine Ratio Glucose POC Glucose 73 123 H Calcium Magnesium Troponin I High Sens Lipase TSH Free T4 SARS-CoV-2, RNA, NAAT 06/01/22 06/01/22 06/01/22 05:54 06:09 07:55 WBC RBC Hgb Hct MCV MCH MCHC RDW Std Deviation RDW Coeff of Ashok Plt Count MPV Immature Gran % (Auto) Neut % (Auto) Lymph % (Auto) [place] % (Auto) Eos % (Auto) Baso % (Auto) Neut # (Auto) Lymph # (Auto) [place] # (Auto) Eos # (Auto) Baso # (Auto) Immature Gran # (Auto) Sodium 136 Potassium 4.4 Chloride 104 Carbon Dioxide 26 Anion Gap 6 BUN 25 H Creatinine 1.07 Est Cr Clr Drug Dosing 65.7 Est GFR ( Amer) 77.2 Est GFR (Non-Af Amer) 66.6 BUN/Creatinine Ratio 23.4 H Glucose 114 H POC Glucose 111 H 113 H Calcium 9.0 Magnesium Troponin I High Sens Lipase TSH Free T4 SARS-CoV-2, RNA, NAAT 06/01/22 11:32 WBC RBC Hgb Hct MCV MCH MCHC RDW Std Deviation RDW Coeff of Ashok Plt Count MPV Immature Gran % (Auto) Neut % (Auto) Lymph % (Auto) [place] % (Auto) Eos % (Auto) Baso % (Auto) Neut # (Auto) Lymph # (Auto) [place] # (Auto) Eos # (Auto) Baso # (Auto) Immature Gran # (Auto) Sodium Potassium Chloride Carbon Dioxide Anion Gap BUN Creatinine Est Cr Clr Drug Dosing Est GFR ( Amer) Est GFR (Non-Af Amer) BUN/Creatinine Ratio Glucose POC Glucose 123 H Calcium Magnesium Troponin I High Sens Lipase TSH Free T4 SARS-CoV-2, RNA, NAAT Diagnostic Findings Echocardiogram 08/24/2021 The LV wall thickness is mildly increased (concentric). The left ventricular wall motion is normal. The qualitative LV ejection fraction is 55-59% (normal). The left atrium is normal sized. The left ventricular diastolic function is mildly abnormal (grade I). The aortic root is moderately dilated, diameter 4.4 cm. The proximal ascending aorta is mildly dilated, diameter 4.2 cm. There is no significant valvular pathology.
[2022-06-01] MEDS ORDERED: METOPROLOL SUCC 25MG EXT REL TAB PO SCH (15:30)
--- NOTE | 2022-06-01 16:02 | Discharge Summary ---
Date of Service June 01, 2022 Admission HPI Per Admitting Provider History obtained from patient and records. Medical history significant for HTN, hyperlipidemia, DM2 insulin requiring BPH, history urolithiasis. Last confinement February 2022 for hyperglycemia secondary to administration of wrong insulin preparation. Recurrent ER visits for problem. Last night, patient woke up groggy and administered himself his nighttime long- acting insulin. He later realized that he had injected short acting preparation. Has happened many times before. Patient denies chest pain, shortness of breath, syncope, abdominal pain. He consulted ER to be checked out. 10 beat run of NSVT noted on the monitor. Patient asymptomatic at time of event. 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 Admission Exam Per Admitting Provider GENERAL: Comfortable, obese, pleasant, no respiratory distress SKIN: Normal color, warm HEENT: [place] palpebral conjunctivae, no ptosis, moist buccal mucosa NECK : Supple, short neck, no tenderness CHEST : CTA, no tenderness HEART : RRR, no obvious murmurs ABDOMEN: Some distention, nontender EXTREMITIES : Minimal LE swelling, no LE tenderness, no other conspicuous deformities noted NEUROLOGIC : Coherent, no facial asymmetry, no other gross focality Principal Diagnosis Hypoglycemic d/t incorrect insulin administration NSVT - asymptomatic Discharge Exam GENERAL: obese, elderly M in NAD HEENT: NC/AT. EOMI. [place] palpebral conjunctivae, no ptosis, moist buccal mucosa NECK : Supple CHEST : CTAB, no tenderness HEART : RRR, no obvious murmurs ABDOMEN: Some distention, nontender EXTREMITIES : Minimal LE swelling, no LE tenderness, moves extremities SKIN: Normal color, warm NEUROLOGIC : awake, alert, speech fluent, answers appropriately, moves extremities Discharge Data Allergies Allergy/AdvReac Type Severity Reaction Status Date / Time No Known Allergies AdvReac Unknown Verified 05/31/22 22:52 Consultations 06/01/22 00:21 ED Decision to Admit Stat 06/01/22 09:05 Consult Cardiology Routine Hospital Course (1) NSVT (nonsustained ventricular tachycardia): 10 beat run of V. tach at the ER for consulting for hypoglycemia Patient asymptomatic during episode Echo obtained LV is normal in size. There is mild concentric LVH. LV wall motion is normal. EF 60 to 65%. Grade 1 diastolic dysfunction. There is no significant valvular disease Cardiology consulted Recommendations: Start low-dose beta-kirstie would begin metoprolol succinate at 12.5 mg/day Stress nuclear imaging post discharge, 14-day Zio patch post discharge Follow-up with cardiology after above testing. Patient to report any new complaints in interim Aortic dilatation being followed yearly via primary care Hypoglycemia secondary to wrongful insulin preparation administration secondary to patient inattention Recurrent ER visits for issue DM2 insulin requiring, well-controlled as of recent hemoglobin A1c of 5.3 last month telehealth nurse educator consulted and discussed in detail w/ daughter at the bedside To help prevent mixing your insulin's up: - Take your Lantus in the morning when you are more alert. No Lantus in the evening anymore. Set an alarm on your phone to serve as a reminder. - Need to keep your insulin pens separate. Keep your Lantus pen upstairs and your Novolog pen downstairs. - Please follow-up with Malaika about obtaining a continuous glucose monitor (Dexcom or FreeStyle Francis). - Be sure to keep quick acting carbohydrates (glucose tablets, gummy bears) with you at all times. - Do not drive if you have symptoms of low blood sugar or your blood sugar is dropping. Chronic conditions HTN, monitor BP hyperlipidemia on statin Rx hx BPH, stable on regimen Total Time Total Time Spent Total Time Spent (In Minutes): 40 Discharge Plan Discharge Items Patient Disposition: Home - Self-Care Reason For Visit: NSVT, HYPOGLY Discharge Diagnosis: Hypoglycemic d/t incorrect insulin administration NSVT - asymptomatic Activity: Per Instructions section Non-emergency contact: Primary Care Provider Call non-emergency contact if: you have any medication questions and your symptoms worsen Follow-up/Referrals: Shady Ross, [Primary Care Provider] - Diet: Carb Consistent or DM2 and Heart Healthy Addtl Attending Provider Instructions: Follow-up with primary care physician within 1 week. Start taking new medication - metoprolol - 12.5 mg daily. Addtl Simulation Analyst Provider Instructions: DIABETES To help prevent mixing your insulin's up: - Take your Lantus in the morning when you are more alert. No Lantus in the evening anymore. Set an alarm on your phone to serve as a reminder. - Need to keep your insulin pens separate. Keep your Lantus pen upstairs and your Novolog pen downstairs. - Please follow-up with Malaika about obtaining a continuous glucose monitor (Dexcom or FreeStyle Francis). - Be sure to keep quick acting carbohydrates (glucose tablets, gummy bears) with you at all times. - Do not drive if you have symptoms of low blood sugar or your blood sugar is dropping. Pending Studies at Discharge: No Stand-Alone Forms: My [facility], Smoking Cessation Medications and DC Order Prescriptions: New metoprolol succinate 25 mg Tablet Extended Release 24 Hr 12.5 mg PO QAM Qty: 30 0RF Continued ergocalciferol (vitamin D2) 1,250 mcg (50,000 unit) capsule 1,250 mcg PO MONTHLY Qty: 12 0RF Rx Instructions: 15th of each month tamsulosin [Flomax] 0.4 mg capsule 0.4 mg PO PM Qty: 90 3RF finasteride 5 mg tablet 5 mg PO QAM Qty: 90 3RF atorvastatin 40 mg tablet 40 mg PO DAILY losartan 50 mg tablet 50 mg PO QAM ascorbic acid (vitamin C) [Vitamin C] 1,000 mg Tablet 2,000 mg PO DAILY Invokana 100 mg Tablet 100 mg PO QAM multivitamin [Multiple Vitamins] Tablet 1 tab PO DAILY aspirin [Luis Low Dose Aspirin] 81 mg Tablet,Delayed Release (Dr/Ec) 81 mg PO DAILY Trulicity 1.5 mg/0.5 mL pen injector 1.5 mg SUBCUT WK Rx Instructions: take this med every TUESDAYS, sometimes varies. insulin aspart U-100 [Novolog FlexPen U-100 Insulin] 100 unit/mL (3 mL) Insulin Pen 1 sliding scale dose SUBCUT USEASDIRECTD Rx Instructions: PER [facility] 04/23/22--12 UNITS BREAKFAST, 20 UNITS LUNCH, & 22 UNITS DINNER. insulin glargine [Lantus U-100 Insulin] 100 unit/mL solution 0 unit SUBCUT PM Rx Instructions: PER [facility] 60 UNITS HS. Discharge Orders: Discharge Order (Routine); Ordered 06/01/22 Ordered By: Dominic Talley Admission Data Admit Date/Time: 06/01/22 01:59 Attending Provider: Knab,Dominic F. Admit Provider: Arvin Ewing Primary Care Provider: Shady Ross Other Providers: Arvin Ewing ; Richard Moody Other Interventions: Discharge Summary Assessment (RN) Last Done: 06/01/22 17:42
--- NOTE | 2022-06-01 16:47 | Electrocardiogram Report ---
Test Reason : Blood Pressure : / mmHG Vent. Rate : 077 BPM Atrial Rate : 077 BPM P-R Int : 200 ms QRS Dur : 094 ms QT Int : 372 ms P-R-T Axes : 078 008 014 degrees QTc Int : 420 ms Normal sinus rhythm Low voltage QRS Possible Inferior infarct , age undetermined Poor R wave progression, consider anterior NE vs. lead placement vs. LVH Abnormal ECG When compared with ECG of 31-MAY-2021 22:18, Borderline criteria for Inferior infarct are now Present Confirmed by John Dennis ([id number]) on 06/01/2022 4:46:33 PM Referred By: REFERRED SELF Confirmed By:John Dennis
[2022-06-01] MEDS ORDERED: TAMSULOSIN HCL 0.4 MG CAP PO SCH (21:00)
[2022-06-01] MEDS ORDERED: LOSARTAN POTASSIUM 50 MG TAB PO SCH (21:00)
[2022-06-02] MEDS ORDERED: PNEUMOCOCCAL Polysaccharide Vaccine 25mcg/0.5mL vial/Syr IM ONE (09:00)
== END 2022-06-01 18:06 | disposition home or self-care (01) | DRG 918 ==
LOC: ED 22:01 → 2S 06-01 01:59